=== PATIENT | female | born 1945 | race Caucasian/White ===

== ENCOUNTER 2022-09-16 11:27 | Emergency (ER) | payer OTHER ==
--- OUTSIDE RECORDS SUMMARY | 2022-09-16 11:35 | XMS REPORT | Continuity of Care Document ---
:1945 Author Organization [facility] t Address [address] [place] [place] [address] Support Name Relationship Address Phone Deni Galan Daughter [address] [place] [address] MARCELINA ROTHMAN Unavailable [address] [place] [address] JENNIFER ROBERTS, CODI [place] Emergency Provider [address] [facility] [id number] [place] [address] LIANET ROBERTS MD Primary Care Physician [address] [phone] [place] [address] CAMI ALLEN Child [address] [place] [address] DO Yuliana INIGUEZ Emergency Provider [address] [phone] [place] [address] DO DAYAMI GRIJALVA Emergency Provider [address] [email or web address] [address] MD JUVE REYES A Emergency Provider [facility] [place] [address] MD JESSICA HEARN Admitting Provider [address] [place] [address] MD JOSE MIGUEL MCCLOUD Emergency Provider Unavailable Unavailable MD HANNA Emergency Provider [address] [phone] [place] [address] MD BEL FLORES Admitting Provider [address] [place] [address] MD TABITHA SHAH JR Admitting Provider [address] [phone] [place] [address] MD LIAM CAMARENA Emergency Provider [address] [place] [address] MD MAURICIO MAK Emergency Provider [address] [place] [address] RANDALL MORAES MD Emergency Provider [address] [place] [address] [place] [address] UNK, UN UN . Unavailable DENI GALAN CR [address] [phone] [place] [address] Deni Galan Daughter Not Applicable Unavailable [place] [id number] RE Unavailable Unavailable Unavailable Care Team Providers Name Role Phone Pcp-None Primary Care Physician Unavailable Merly Vasquez Attending Clinician Unavailable Rajeev Khanna Attending Clinician Unavailable Austen Flowers Attending Clinician Unavailable Too Bell Attending Clinician Unavailable PRIMITIVO DUMAS Attending Clinician Unavailable Jono Hernandez Attending Clinician Unavailable Yojana Lowry MD Attending Clinician [phone] YOJANA LOWRY Attending Clinician Unavailable Bonifacio Garza Attending Clinician Unavailable AUSTEN FLOWERS Attending Clinician Unavailable Rajeev Khanna Admitting Clinician Unavailable AUSTEN FLOWERS Admitting Clinician Unavailable Payers Payer Name Policy Type Policy Number Effective Date Expiration Date S ource Problems Condition Condition Condition Status Onset Resolution Last Treating Co mments Source Name Details Category Date Date Treatment Clinician Date [id number] Enterovesi Problem Com [facility] zarina Spirit fistula [facility] [id number] Hyperurice Problem Com [facility] marvin [facility] [id number] Recurrent Problem Com [facility] UTI [facility] [id number] History of Problem Co mmon nephrolith [facility] Allergies, Adverse Reactions, Alerts Allergy Allergy Status Severity Reaction(s) Onset Inactive Treating Comm ents Source Name Type Date Date Clinician Penicill DA Active [place] HIVES [facility] ins 08-26 [place] [facility]: d [facility] Sulfa DA Active MO ITCHING [facility] (Sulfona 08-26 [place] mide 00:00: d Antibiot 00 [facility] Center ciproflo DA Active MO HIVES [facility] xacin 08-26 [place] 00:00: d [address] [facility] clarithr DA Active MO HIVES [facility] [place] Influenz DA Active SV BP ISSUES/HR HC A a Virus ISSUES 08-26 [place] Vaccines 00:00: d [address] [facility] Penicill DA Active U Hives [facility] ins 11-11 00:00: 00 Sulfa DA Active U Vomiting [facility] (Sulfona 11-11 mide 00:00: Antibiot 00 ics) ciproflo DA Active U Hives [facility] xacin 11-11 00:00: 00 clarithr DA Active U Hives [facility] omycin 11-11 00:00: 00 flu Allergy Active U Difficulty [facility] Breathing 11-11 00:00: 00 NO KNOWN Allergy Active [facility] penicill penicill Active Unknown Commo n in V in V [facility] Sulfona Sulfona Active Unknown Commo n mide mide Spirit (substan (substan - [facility] ce) ce) [facility] 9041 Drug Active Unknown Common allergy [facility] Haemophi Haemophi Active Unknown Commo n alireza alireza [facility] ae type ae type b b [facility] clarithr clarithr Active Unknown Commo n omycin omycin [facility] Social History Social Habit Start Date Stop Date Quantity Comments Source History of Tobacco [facility] Use [facility] Sex Assigned At [birth year] [facility] 00:00:00 00:00:[address] [facility] Medications Ordered Filled Start Stop Current Ordering Indication Dosage Frequency Signature Comments Components Source Medication Medication Date Date Medication? Clinician (SIG) Name Name Nitrofurant Nitrofurant 2021-08- No 1{capsu QD Nitrofuran oin Monohyd oin Monohyd 011-24 le_with toin Macro 100 Macro 100 00:00: 00:00 _food} Monohyd MG MG 00 :00 Macro 100 MG Nitrofurant Nitrofurant 2021-08- No 1{capsu QD Nitrofuran oin Monohyd oin Monohyd 0-26 11- le_with toin Macro 100 Macro 100 00:00: 00:00 _food} Monohyd MG MG 00 :00 Macro 100 MG Nitrofurant Nitrofurant 2021-08- No 1{capsu QD Nitrofuran oin Monohyd oin Monohyd 0-11-24 le_with toin Macro 100 Macro 100 00:00: 00:00 _food} Monohyd MG MG 00 :00 Macro 100 MG Nitrofurant Nitrofurant 2021- No QD Nitrofuran oin Monohyd oin Monohyd 02-18 toin Macro 100 Macro 100 00:00: 00:00 Monohyd MG MG 00 :00 Macro 100 MG Nitrofurant Nitrofurant 2021- No QD Nitrofuran oin Monohyd oin Monohyd 02-18 toin Macro 100 Macro 100 00:00: 00:00 Monohyd MG MG 00 :00 Macro 100 MG levoFLOXaci levoFLOXaci 2021- No 1{table QD levoFLOXac n 500 MG n 500 MG 02-18 t} in 500 MG 00:00: 00:00 00 :00 Allopurinol Allopurinol No 1{table QD Allopurino 100 MG 100 MG t} l 100 MG Meclizine Meclizine No 1{table QD Meclizine HCl 25 MG HCl 25 MG t_as_ne HCl 25 MG eded} Lipitor 10 Lipitor 10 No 1{table QD Lipitor 10 MG MG t} MG Furosemide Furosemide No 1{table QD Furosemide 20 MG 20 MG t} 20 MG Gabapentin Gabapentin No 1{capsu QD Gabapentin 300 MG 300 MG le} 300 MG amLODIPine amLODIPine No 1{table QD amLODIPine Besylate 10 Besylate 10 t} Besylate MG MG 10 MG Meclizine Meclizine No 1{table QD Meclizine HCl 25 MG HCl 25 MG t_as_ne HCl 25 MG eded} Isosorbide Isosorbide No 1{table BID Isosorbide Mononitrate Mononitrate t} Mononitrat 10 MG 10 MG e 10 MG Advair Advair No 1{puff} BID Advair Diskus Diskus Diskus 100-50 100-50 100-50 MCG/ACT MCG/ACT MCG/ACT Ozempic Ozempic No Ozempic (0.25 or (0.25 or (0.25 or 0.5 0.5 0.5 MG/DOSE) 2 MG/DOSE) 2 MG/DOSE) 2 MG/1.5ML MG/1.5ML MG/1.5ML Vitamin E Vitamin E No 1{capsu QD Vitamin E 200 UNIT 200 UNIT le} 200 UNIT Albuterol Albuterol No 1{puff_ 6xD Albuterol Sulfate HFA Sulfate HFA as_need Sulfate 108 (90 108 (90 ed} HFA 108 Base) Base) (90 Base) MCG/ACT MCG/ACT MCG/ACT Lipitor 10 Lipitor 10 No 1{table QD Lipitor 10 MG MG t} MG Potassium Potassium No 1{table QD Potassium 99 MG 99 MG t} 99 MG Magnesium Magnesium No Magnesium 400 MG 400 MG 400 MG Mongo 3 Mongo 3 No 1{capsu QD Mongo 3 1000 MG 1000 MG le} 1000 MG Famotidine Famotidine No 1{table QD Famotidine 20 MG 20 MG t_at_be 20 MG dtime_a s_neede d} aspirin aspirin No aspirin Januvia 25 Januvia 25 No Januvia 25 MG MG MG Allopurinol Allopurinol No 1{table QD Allopurino 100 MG 100 MG t} l 100 MG hydrALAZINE hydrALAZINE No 1{table TID hydrALAZIN HCl 25 MG HCl 25 MG t_with_ E HCl 25 food} MG Vitamin D Vitamin D No 1{table QD Vitamin D 50 MCG 50 MCG t} 50 MCG (1999 UT) (1999 UT) (1999 UT) amLODIPine amLODIPine No 1{table QD amLODIPine Besylate 10 Besylate 10 t} Besylate MG MG 10 MG Albuterol Albuterol No 1{puff_ 6xD Albuterol Sulfate HFA Sulfate HFA as_need Sulfate 108 (90 108 (90 ed} HFA 108 Base) Base) (90 Base) MCG/ACT MCG/ACT MCG/ACT Furosemide Furosemide No 1{table QD Furosemide 20 MG 20 MG t} 20 MG Meclizine Meclizine No 1{table QD Meclizine HCl 25 MG HCl 25 MG t_as_ne HCl 25 MG eded} Famotidine Famotidine No 1{table QD Famotidine 20 MG 20 MG t_at_be 20 MG dtime_a s_neede d} Vitamin D Vitamin D No 1{table QD Vitamin D 50 MCG 50 MCG t} 50 MCG (1999) (1999 UT) (1999) Januvia 25 Januvia 25 No Januvia 25 MG MG MG Vitamin E Vitamin E No 1{capsu QD Vitamin E 200 UNIT 200 UNIT le} 200 UNIT Magnesium Magnesium No Magnesium 400 MG 400 MG 400 MG Ozempic Ozempic No Ozempic (0.25 or (0.25 or (0.25 or 0.5 0.5 0.5 MG/DOSE) 2 MG/DOSE) 2 MG/DOSE) 2 MG/1.5ML MG/1.5ML MG/1.5ML aspirin aspirin No aspirin hydrALAZINE hydrALAZINE No 1{table TID hydrALAZIN HCl 25 MG HCl 25 MG t_with_ E HCl 25 food} MG Advair Advair No 1{puff} BID Advair Diskus Diskus Diskus 100-50 100-50 100-50 MCG/ACT MCG/ACT MCG/ACT Potassium Potassium No 1{table QD Potassium 99 MG 99 MG t} 99 MG Gabapentin Gabapentin No 1{capsu QD Gabapentin 300 MG 300 MG le} 300 MG Lipitor 10 Lipitor 10 No 1{table QD Lipitor 10 MG MG t} MG Isosorbide Isosorbide No 1{table BID Isosorbide Mononitrate Mononitrate t} Mononitrat 10 MG 10 MG e 10 MG Mongo 3 Mongo 3 No 1{capsu QD Mongo 3 1000 MG 1000 MG le} 1000 MG Allopurinol Allopurinol No 1{table QD Allopurino 100 MG 100 MG t} l 100 MG amLODIPine amLODIPine No 1{table QD amLODIPine Besylate 10 Besylate 10 t} Besylate MG MG 10 MG Albuterol Albuterol No 1{puff_ 6xD Albuterol Sulfate HFA Sulfate HFA as_need Sulfate 108 (90 108 (90 ed} HFA 108 Base) Base) (90 Base) MCG/ACT MCG/ACT MCG/ACT Furosemide Furosemide No 1{table QD Furosemide 20 MG 20 MG t} 20 MG Meclizine Meclizine No 1{table QD Meclizine HCl 25 MG HCl 25 MG t_as_ne HCl 25 MG eded} Famotidine Famotidine No 1{table QD Famotidine 20 MG 20 MG t_at_be 20 MG dtime_a s_neede d} Vitamin D Vitamin D No 1{table QD Vitamin D 50 MCG 50 MCG t} 50 MCG (1999 UT) (1999 UT) (1999 UT) Januvia 25 Januvia 25 No Januvia 25 MG MG MG Vitamin E Vitamin E No 1{capsu QD Vitamin E 200 UNIT 200 UNIT le} 200 UNIT Magnesium Magnesium No Magnesium 400 MG 400 MG 400 MG Ozempic Ozempic No Ozempic (0.25 or (0.25 or (0.25 or 0.5 0.5 0.5 MG/DOSE) 2 MG/DOSE) 2 MG/DOSE) 2 MG/1.5ML MG/1.5ML MG/1.5ML aspirin aspirin No aspirin hydrALAZINE hydrALAZINE No 1{table TID hydrALAZIN HCl 25 MG HCl 25 MG t_with_ E HCl 25 food} MG Advair Advair No 1{puff} BID Advair Diskus Diskus Diskus 100-50 100-50 100-50 MCG/ACT MCG/ACT MCG/ACT Potassium Potassium No 1{table QD Potassium 99 MG 99 MG t} 99 MG Gabapentin Gabapentin No 1{capsu QD Gabapentin 300 MG 300 MG le} 300 MG Lipitor 10 Lipitor 10 No 1{table QD Lipitor 10 MG MG t} MG Isosorbide Isosorbide No 1{table BID Isosorbide Mononitrate Mononitrate t} Mononitrat 10 MG 10 MG e 10 MG Mongo 3 Mongo 3 No 1{capsu QD Mongo 3 1000 MG 1000 MG le} 1000 MG Allopurinol Allopurinol No 1{table QD Allopurino 100 MG 100 MG t} l 100 MG amLODIPine amLODIPine No 1{table QD amLODIPine Besylate 10 Besylate 10 t} Besylate MG MG 10 MG Albuterol Albuterol No 1{puff_ 6xD Albuterol Sulfate HFA Sulfate HFA as_need Sulfate 108 (90 108 (90 ed} HFA 108 Base) Base) (90 Base) MCG/ACT MCG/ACT MCG/ACT Furosemide Furosemide No 1{table QD Furosemide 20 MG 20 MG t} 20 MG Meclizine Meclizine No 1{table QD Meclizine HCl 25 MG HCl 25 MG t_as_ne HCl 25 MG eded} Famotidine Famotidine No 1{table QD Famotidine 20 MG 20 MG t_at_be 20 MG dtime_a s_neede d} Vitamin D Vitamin D No 1{table QD Vitamin D 50 MCG 50 MCG t} 50 MCG (1999 UT) (1999 UT) (1999) Januvia 25 Januvia 25 No Januvia 25 MG MG MG Vitamin E Vitamin E No 1{capsu QD Vitamin E 200 UNIT 200 UNIT le} 200 UNIT Magnesium Magnesium No Magnesium 400 MG 400 MG 400 MG Ozempic Ozempic No Ozempic (0.25 or (0.25 or (0.25 or 0.5 0.5 0.5 MG/DOSE) 2 MG/DOSE) 2 MG/DOSE) 2 MG/1.5ML MG/1.5ML MG/1.5ML aspirin aspirin No aspirin hydrALAZINE hydrALAZINE No 1{table TID hydrALAZIN HCl 25 MG HCl 25 MG t_with_ E HCl 25 food} MG Advair Advair No 1{puff} BID Advair Diskus Diskus Diskus 100-50 100-50 100-50 MCG/ACT MCG/ACT MCG/ACT Potassium Potassium No 1{table QD Potassium 99 MG 99 MG t} 99 MG Gabapentin Gabapentin No 1{capsu QD Gabapentin 300 MG 300 MG le} 300 MG Lipitor 10 Lipitor 10 No 1{table QD Lipitor 10 MG MG t} MG Isosorbide Isosorbide No 1{table BID Isosorbide Mononitrate Mononitrate t} Mononitrat 10 MG 10 MG e 10 MG Mongo 3 Mongo 3 No 1{capsu QD Mongo 3 1000 MG 1000 MG le} 1000 MG Allopurinol Allopurinol No 1{table QD Allopurino 100 MG 100 MG t} l 100 MG Vitamin E Vitamin E No 1{capsu QD Vitamin E 200 UNIT 200 UNIT le} 200 UNIT hydrALAZINE hydrALAZINE No 1{table TID hydrALAZIN HCl 25 MG HCl 25 MG t_with_ E HCl 25 food} MG amLODIPine amLODIPine No 1{table QD amLODIPine Besylate 10 Besylate 10 t} Besylate MG MG 10 MG Advair Advair No 1{puff} BID Advair Diskus Diskus Diskus 100-50 100-50 100-50 MCG/ACT MCG/ACT MCG/ACT Meclizine Meclizine No 1{table QD Meclizine HCl 25 MG HCl 25 MG t_as_ne HCl 25 MG eded} Furosemide Furosemide No 1{table QD Furosemide 20 MG 20 MG t} 20 MG Albuterol Albuterol No 1{puff_ 6xD Albuterol Sulfate HFA Sulfate HFA as_need Sulfate 108 (90 108 (90 ed} HFA 108 Base) Base) (90 Base) MCG/ACT MCG/ACT MCG/ACT Isosorbide Isosorbide No 1{table BID Isosorbide Mononitrate Mononitrate t} Mononitrat 10 MG 10 MG e 10 MG Vitamin D Vitamin D No 1{table QD Vitamin D 50 MCG 50 MCG t} 50 MCG (1999 UT) (1999 UT) (1999 UT) Lipitor 10 Lipitor 10 No 1{table QD Lipitor 10 MG MG t} MG Ozempic Ozempic No Ozempic (0.25 or (0.25 or (0.25 or 0.5 0.5 0.5 MG/DOSE) 2 MG/DOSE) 2 MG/DOSE) 2 MG/1.5ML MG/1.5ML MG/1.5ML Gabapentin Gabapentin No 1{capsu QD Gabapentin 300 MG 300 MG le} 300 MG Potassium Potassium No 1{table QD Potassium 99 MG 99 MG t} 99 MG Januvia 25 Januvia 25 No Januvia 25 MG MG MG Allopurinol Allopurinol No 1{table QD Allopurino 100 MG 100 MG t} l 100 MG aspirin aspirin No aspirin Famotidine Famotidine No 1{table QD Famotidine 20 MG 20 MG t_at_be 20 MG dtime_a s_neede d} Mongo 3 Mongo 3 No 1{capsu QD Mongo 3 1000 MG 1000 MG le} 1000 MG Magnesium Magnesium No Magnesium 400 MG 400 MG 400 MG Gabapentin Gabapentin No 1{capsu QD Gabapentin 300 MG 300 MG le} 300 MG Ozempic Ozempic No Ozempic (0.25 or (0.25 or (0.25 or 0.5 0.5 0.5 MG/DOSE) 2 MG/DOSE) 2 MG/DOSE) 2 MG/1.5ML MG/1.5ML MG/1.5ML Potassium Potassium No 1{table QD Potassium 99 MG 99 MG t} 99 MG Famotidine Famotidine No 1{table QD Famotidine 20 MG 20 MG t_at_be 20 MG dtime_a s_neede d} aspirin aspirin No aspirin Isosorbide Isosorbide No 1{table BID Isosorbide Mononitrate Mononitrate t} Mononitrat 10 MG 10 MG e 10 MG Advair Advair No 1{puff} BID Advair Diskus Diskus Diskus 100-50 100-50 100-50 MCG/ACT MCG/ACT MCG/ACT Albuterol Albuterol No 1{puff_ 6xD Albuterol Sulfate HFA Sulfate HFA as_need Sulfate 108 (90 108 (90 ed} HFA 108 Base) Base) (90 Base) MCG/ACT MCG/ACT MCG/ACT amLODIPine amLODIPine No 1{table QD amLODIPine Besylate 10 Besylate 10 t} Besylate MG MG 10 MG Furosemide Furosemide No 1{table QD Furosemide 20 MG 20 MG t} 20 MG Januvia 25 Januvia 25 No Januvia 25 MG MG MG Mongo 3 Mongo 3 No 1{capsu QD Mongo 3 1000 MG 1000 MG le} 1000 MG Vitamin D Vitamin D No 1{table QD Vitamin D 50 MCG 50 MCG t} 50 MCG (1999 UT) (1999 UT) (1999) Lipitor 10 Lipitor 10 No 1{table QD Lipitor 10 MG MG t} MG Vitamin E Vitamin E No 1{capsu QD Vitamin E 200 UNIT 200 UNIT le} 200 UNIT Magnesium Magnesium No Magnesium 400 MG 400 MG 400 MG Allopurinol Allopurinol No 1{table QD Allopurino 100 MG 100 MG t} l 100 MG Meclizine Meclizine No 1{table QD Meclizine HCl 25 MG HCl 25 MG t_as_ne HCl 25 MG eded} hydrALAZINE hydrALAZINE No 1{table TID hydrALAZIN HCl 25 MG HCl 25 MG t_with_ E HCl 25 food} MG Ozempic Ozempic No Ozempic (0.25 or (0.25 or (0.25 or 0.5 0.5 0.5 MG/DOSE) 2 MG/DOSE) 2 MG/DOSE) 2 MG/1.5ML MG/1.5ML MG/1.5ML hydrALAZINE hydrALAZINE No 1{table TID hydrALAZIN HCl 25 MG HCl 25 MG t_with_ E HCl 25 food} MG aspirin aspirin No aspirin Gabapentin Gabapentin No 1{capsu QD Gabapentin 300 MG 300 MG le} 300 MG Isosorbide Isosorbide No 1{table BID Isosorbide Mononitrate Mononitrate t} Mononitrat 10 MG 10 MG e 10 MG Potassium Potassium No 1{table QD Potassium 99 MG 99 MG t} 99 MG Albuterol Albuterol No 1{puff_ 6xD Albuterol Sulfate HFA Sulfate HFA as_need Sulfate 108 (90 108 (90 ed} HFA 108 Base) Base) (90 Base) MCG/ACT MCG/ACT MCG/ACT amLODIPine amLODIPine No 1{table QD amLODIPine Besylate 10 Besylate 10 t} Besylate MG MG 10 MG Furosemide Furosemide No 1{table QD Furosemide 20 MG 20 MG t} 20 MG Mongo 3 Mongo 3 No 1{capsu QD Mongo 3 1000 MG 1000 MG le} 1000 MG Famotidine Famotidine No 1{table QD Famotidine 20 MG 20 MG t_at_be 20 MG dtime_a s_neede d} Vitamin D Vitamin D No 1{table QD Vitamin D 50 MCG 50 MCG t} 50 MCG (1999) (1999) (1999) Magnesium Magnesium No Magnesium 400 MG 400 MG 400 MG Vitamin E Vitamin E No 1{capsu QD Vitamin E 200 UNIT 200 UNIT le} 200 UNIT Januvia 25 Januvia 25 No Januvia 25 MG MG MG Advair Advair No 1{puff} BID Advair Diskus Diskus Diskus 100-50 100-50 100-50 MCG/ACT MCG/ACT MCG/ACT Vital Signs Vital Name Observation Time Observation Value Comments Source height 2022-05-28 17:45:00 68 [in_i] [facility] weight 2022-05-28 17:45:00 201 [lb_av] [facility] temperature 2022-05-28 17:45:00 98.2 [degF] [facility] bmi 2022-05-28 17:45:00 30.56 kg/m2 [facility] oximetry 2022-05-28 17:45:00 97 % Common S pirit [facility] respiratory rate 2022-05-28 17:45:00 16 /min Comm on [facility] blood pressure 2022-05-28 17:45:00 157 mm[Hg] Common [facility] - systolic [facility] blood pressure 2022-05-28 17:45:00 72 mm[Hg] Common [facility] - diastolic [facility] height 2022-03-12 13:30:00 68 [in_i] Common [facility] weight 2022-03-12 13:30:00 200.2 [lb_av] [facility] temperature 2022-03-12 13:30:00 98.5 [degF] Common [facility] bmi 2022-03-12 13:30:00 30.44 kg/m2 [facility] S [facility] oximetry 2022-03-12 13:30:00 97 % Common S [facility] respiratory rate 2022-03-12 13:30:00 16 /min Comm on [facility] blood pressure 2022-03-12 13:30:00 148 mm[Hg] Common [facility] - systolic [facility] blood pressure 2022-03-12 13:30:00 72 mm[Hg] Common [facility] - diastolic [facility] height 2022-02-12 10:15:00 68 [in_i] Common S pirit [facility] weight 2022-02-12 10:15:00 202 [lb_av[facility] temperature 2022-02-12 10:15:00 97.3 [degF] [facility] bmi 2022-02-12 10:15:00 30.71 kg/m2 [facility] oximetry 2022-02-12 10:15:00 98 % Common S [facility] respiratory rate 2022-02-12 10:15:00 16 /min Comm on [facility] blood pressure 2022-02-12 10:15:00 133 mm[Hg] Common [facility] - systolic [facility] blood pressure 2022-02-12 10:15:00 68 mm[Hg] Common [facility] - diastolic [facility] height 2022-01-29 10:30:00 68 [in_i] [facility] weight 2022-01-29 10:30:00 208.6 [lb_av] [facility] temperature 2022-01-29 10:30:00 98.5 [degF] [facility] bmi 2022-01-29 10:30:00 31.71 kg/m2 [facility] oximetry 2022-01-29 10:30:00 96 % [facility] respiratory rate 2022-01-29 10:30:00 16 /min Comm on [facility] blood pressure 2022-01-29 10:30:00 139 mm[Hg] Common [facility] - systolic [facility] blood pressure 2022-01-29 10:30:00 63 mm[Hg] Common [facility] - diastolic [facility] HEIGHT 2021-11-11 17:13:00 175.3 cm WEIGHT 2021-11-11 17:13:00 97.07 kg HEIGHT 2021-11-11 17:13:00 175.3 cm WEIGHT 2021-11-11 17:13:00 97.07 kg HEIGHT 2021-11-11 17:13:00 175.3 cm WEIGHT 2021-11-11 17:13:00 97.07 kg Systolic blood 2021-11-11 21:23:00 121 mm[Hg] [facility] Diastolic blood 2021-11-11 21:23:00 74 mm[Hg] [facility] Heart rate 2021-11-11 21:23:00 89 /min [facility] Body temperature 2021-11-11 21:23:00 36.67 Leticia [facility] Respiratory rate 2021-11-11 21:23:00 20 /min [facility] Oxygen saturation in 2021-11-11 20:00:00 96 /min [facility] Arterial blood by Medical Ce nter Pulse oximetry Body height 2021-11-11 17:13:00 175.3 cm [facility] Body weight 2021-11-11 17:13:00 97.07 kg [facility] BMI 2021-11-11 17:13:00 31.60 kg/m2 [facility] Procedures Procedure Date / Time Performing Clinician Source Performed [id number] 2022-09-02 00:00:00 [facility] [id number] 2022-09-02 00:00:00 [facility] [id number] 2022-09-02 00:00:00 [facility] [id number] 2022-09-02 00:00:00 [facility] [id number] 2022-09-02 00:00:00 [facility] [id number] 2022-09-02 00:00:00 [facility] [id number] 2022-09-02 00:00:00 [facility] URINE CULTURE 2021-11-11 20:17:00 [facility] URINALYSIS W/ REFLEX 2021-11-11 20:17:00 [facility] URINE CULTURE [facility] CBC W/PLT COUNT & AUTO 2021-11-11 19:56:00 Yojana Lowry [facility] DIFFERENTIAL [facility] COMPREHENSIVE METABOLIC 2021-11-11 19:56:00 Yojana Lowry [facility] PANEL [facility] LIPASE 2021-11-11 19:56:00 Yojana Lowry [facility] MAGNESIUM 2021-11-11 19:56:00 Yojana Lowry [facility] HIGH SENSITIVITY TROPONIN 2021-11-11 19:56:00 Yojana Lowry I [facility] I [facility] CBC W/PLT COUNT & AUTO 2021-11-11 19:56:00 Yojana Lowry [facility] S [facility] XR CHEST 2 VIEWS 2021-11-11 17:57:00 Jud Lowryita [facility] ECG 12-LEAD 2021-11-11 17:47:17 Unknown, Hl7 Doctor [facility] ECG 12-LEAD 2021-11-11 17:47:17 [facility] 2021-11-11 17:47:17 Unknown, Hl7 [facility] EKG-SCANNED 2021-11-11 00:00:00 Provider, Obinna [facility] Merissa es Scanning [facility] Plan of Care Planned Activity Planned Date Details Comments Source Future Scheduled 2022-08-[address] [facility] Test 00:00:00 (12+) [code = [facility] DEPRESSION SCREENING (12+)] Future Scheduled 2022-08-03 FALLS RISK SCREENING [facility] Test 00:00:00 [code = FALLS RISK Medical C enter SCREENING] Future Scheduled 2022-08-[address] [facility] Test 00:00:00 (12+) [code = [facility] DEPRESSION SCREENING (12+)] Future Scheduled 2022-08-03 FALLS RISK SCREENING [facility] Test 00:00:00 [code = FALLS RISK Medical C enter SCREENING] Future Scheduled 2022-04-03 INFLUENZA VACCINE (#1) [facility] 00:00:00 [code = INFLUENZA Medical Ce nter VACCINE (#1)] Future Scheduled 2022-04-03 INFLUENZA VACCINE (#1) [facility] 00:00:00 [code = INFLUENZA Medical Ce nter VACCINE (#1)] Future Scheduled 2009 PNEUMOCOCCAL 65+ YRS [facility] Test 00:00:00 (1 - PCV) [code = Medical Ce nter PNEUMOCOCCAL 65+ YRS (1 - PCV)] Future Scheduled 2009 PNEUMOCOCCAL 65+ YRS [facility] Test 00:00:00 (1 - PCV) [code = Medical Ce nter PNEUMOCOCCAL 65+ YRS (1 - PCV)] Future Scheduled 2004-08-[address] [facility] 00:00:00 WELLNESS (YEAR 2 or Medical Center FIRST YEAR if no IPPE) [code = MEDICARE ANNUAL WELLNESS (YEAR 2 or FIRST YEAR if no IPPE)] Future Scheduled 2004-08-[address] [facility] 00:00:00 WELLNESS (YEAR 2 or Medical Center FIRST YEAR if no IPPE) [code = MEDICARE ANNUAL WELLNESS (YEAR 2 or FIRST YEAR if no IPPE)] Future Scheduled 1994 SHINGLES VACCINES ([address] [facility] 00:00:00 of 2) [code = SHINGLES [facility] Center VACCINES (1 of 2)] Future Scheduled 1994 SHINGLES VACCINES ([address] [facility] 00:00:00 of 2) [code = SHINGLES [facility] VACCINES (1 of 2)] Future Scheduled 1963-10-10 DTAP/TDAP/TD VACCINES [facility] Test 00:00:00 (1 - Tdap) [code = Medical C enter DTAP/TDAP/TD VACCINES (1 - Tdap)] Future Scheduled 1963-10-10 DTAP/TDAP/TD [facility]ACCINES [facility] Test 00:00:00 (1 - Tdap) [code = Medical C enter DTAP/TDAP/TD VACCINES (1 - Tdap)] Future Scheduled 1962 HEPATITIS C [facility]CRE[facility] Test 00:00:00 [code = HEPATITIS C [facility] SCREENING] Future Scheduled 1962 [facility]PATITIS C [facility] Test 00:00:00 [code = HEPATITIS C Medical Center SCREENING] Future Scheduled [address] [facility] Test 00:00:00 Counseling and Medical Cente r Screening (12+) [code = Tobacco Cessation Counseling and Screening (12+)] Future Scheduled [address] [facility] Test 00:00:00 Counseling and Medical Cente r Screening (12+) [code = Tobacco Cessation Counseling and Screening (12+)] Future Scheduled 1945-04-11 COVID-19 VACCINE (#1) [facility] Test 00:00:00 [code = COVID-[address] VACCINE (#1)] Future Scheduled 1945-04-11 COVID-19 VACCINE (#1) [facility] Test 00:00:00 [code = COVID-[address] VACCINE (#1)] Future Scheduled 1945 DXA SCAN [code = DXA [facility] Test 00:00:00 SCAN] Medical Center Future Scheduled 1944 DXA SCAN [code = DXA [facility] Test 00:00:00 SCAN] Medical Center Encounters Start End Encounter Admission Attending Care Care Encounter Source Date/Time Date/Time Type Type Clinicians Facility Department ID 2022-02-12 Outpatient Neret, STLMLC STLMLC [id number] Common 09:49:02 Merly [id number] [facility] 2022-01-30 Outpatient Neret, STLMLC STLMLC [id number] Common 14:36:04 Merly [id number] [facility] 2022-01-29 Outpatient STLMLC STLMLC [id number] Common 10:07:02 [facility] 2021-11-11 Inpatient [facility] [id number] [facility] 12:52:00 63 2021-11-11 Inpatient [facility] [id number] [facility] 12:52:00 63 2022-09-02 2022-09-05 Inpatient BONNIE Khanna [facility] [id number] [facility] 09:22:00 14:41:00 Rajeev 28 [facility] 2022-08-20 2022-08-20 Outpatient BONNIE Kristie [facility] [id number] [place] 13:06:00 13:06:00 Austen -[id number] [facility] 2022-08-19 2022-08-19 Outpatient BONNIE Arabella [facility] [id number] [place] 13:30:00 13:30:00 Too -[id number] [facility] 2022-08-13 2022-08-13 Outpatient BONNIE ALESIA [facility] D00 [id number] [place] 14:08:00 14:08:00 , PRIMITIVO -[id number] [facility] 2022-07-31 2022-07-31 Outpatient BONNIE ALESIA [facility] D00 [id number] [place] 14:29:00 14:29:00 , PRIMITIVO -[id number] [facility] 2022-06-20 2022-06-20 Outpatient BONNIE FLOWERS [facility] [id number] [place] 09:11:00 09:11:00 AUSTEN -[id number] [facility] 2022-06-17 2022-06-17 Outpatient BONNIE Hernandez [facility] [id number] [place] 13:50:00 13:50:00 Jono [id number] [facility] 2022-06-02 2022-06-02 (TEL) STLMLC STLMLC [id number] Co mmon 00:00:00 00:00:00 [facility] 2022-05-28 2022-05-28 OFFICE STLMLC STLMLC [id number] Co mmon 00:00:00 00:00:00 VISIT [facility] ESTAB PT - CHI LEVEL 4 [facility] 2022-05-28 2022-05-28 (TEL) STLMLC STLMLC [id number] Co mmon 00:00:00 00:00:00 [facility] 2022-05-08 2022-05-08 Outpatient BONNIE Hernandez [facility] [id number] [place] 15:16:00 15:16:00 Jono [id number] [facility] 2022-03-12 2022-03-12 OFFICE STLMLC STLMLC [id number] Co mmon 00:00:00 00:00:00 VISIT [facility] ESTAB PT - [facility]I LEVEL 4 [facility] 2022-02-17 2022-02-17 (TEL) STLMLC STLMLC [id number] Co mmon 00:00:00 00:00:00 [facility] 2022-02-12 2022-02-12 OFFICE STLMLC STLMLC [id number] Co mmon 00:00:00 00:00:00 VISIT [facility] ESTAB PT - CHI LEVEL 2 [facility] 2022-01-29 2022-01-29 OFFICE STLMLC STLMLC [id number] Co mmon 00:00:00 00:00:00 VISIT [facility] it PT LEVEL 2 - [facility] 2021-11-11 2021-11-11 Outpatient [facility] [id number] [facility] 00:00:00 23:59:00 Leonidas 2021-11-11 2021-11-11 Emergency ER Essence, [facility] [id number] 17:14:00 21:25:00 [facility] 2021-11-11 2021-11-11 Emergency Essence, [facility] [id number] 17:14:00 21:25:00 [facility] 2021-11-11 2021-11-11 Emergency ER ESSENCE, [facility] Emergency [id number] SLE 17:14:00 21:25:00 [place] 2021-11-11 2021-11-11 Orders [facility] [id number] 00:00:00 00:00:00 Only [facility] 2021-11-11 2021-11-11 Orders [facility] [id number] 00:00:00 00:00:00 [facility] Results Test Description Test Time Test Comments Results Result Comments Source GLUBED 2022-09-05 12:23:00 Test Item Value Reference Range Interpretation Comme nts GLUBED (test code = GLUBED) 113 MG/DL 74-106 H BASIC METABOLIC [id number] 08:17:00 Test Item Value Reference Range Interpretation Comments SODIUM (test code = 136 mmol/L 137-145 L NA) POTASSIUM (test 3.9 mmol/L 3.4-5.0 N code = K) CHLORIDE (test code 107 mmol/L 98-107 N = CL) CARBON DIOXIDE 25 mmol/L 22-30 N (test code = CO2) ANION GAP (test 8 code = GAP) GLUCOSE (test code 110 mg/dL 74-106 H = GLU) BLOOD UREA NITROGEN 35 mg/dL 7-17 H (test code = BUN) GLOMERULAR 24 mL/min The Glomerular FILTRATION RATE Filtration R ate is a (test code = GFR) calculated parameterbased on serum Creatinin e, patient age and sex. GFR valuesless than 60 mL/min/1.73 squ are meters are doris cative ofChronic Kidne y Disease. Values less than 15 mL/min/1.73squa re meters indicate Kidney failure. The calculation for GFR is based on the CK D-EPI (2020) calculat ion. This formulais race indifferent and is the recommended for tiki for GFRby the [facility] on for Adults.The GFR will not calculate i f the sex is unknown or if thepatient's ag e is <18 years. CREATININE (test 2.1 mg/dL 0.5-1.0 H code = CREAT) CALCIUM (test code 8.5 mg/dL 8.4-10.2 N = CA) INDEX HEMOLYSIS < 15 Index/DL 0-100 N (test code = HEMINDEX) [id number] 08:17:00 Test Item Value Reference Range Interpretation Comments PHOSPHOROUS (test code = PHOS) 2.9 mg/dL 2.5-4.5 N [id number] 08:17:00 Test Item Value Reference Range Interpretation Comments MAGNESIUM (test code = MAG) 1.8 mg/dL 1.6-2.3 N CBC W/AUTO [id number] 07:32:00 Test Item Value Reference Range Interpretation Comments WHITE BLOOD CELL (test code = 6.6 x10 3/uL 5.0-12.0 N WBC) RED BLOOD CELL (test code = 3.06 x10 6/uL 4.20-5.40 L RBC) HEMOGLOBIN (test code = HGB) 8.9 g/dL 12.0-16.0 L HEMATOCRIT (test code = HCT) 28.2 % 36.0-46.0 L MEAN CELL VOLUME (test code = 92 fL 81-99 N MCV) MEAN CELL HGB (test code = MCH) 29.1 pg 27-31 N MEAN CELL HGB CONCENTRATION 31.6 g/dL 33-37 L (test code = MCHC) RED CELL DISTRIBUTION WIDTH 14.4 % 11.5-15.5 N (test code = RDW) PLATELET COUNT (test code = 183 x10 3/uL 130-400 N PLT) MEAN PLATELET VOLUME (test code 9.6 fL 9.4-16.4 N = MPV) NEUTROPHIL % (test code = NT%) 59.4 % 43-65 N IMMATURE GRANULOCYTE % (test 0.2 % 0.0-2.0 N code = IG%) LYMPHOCYTE % (test code = LY%) 25.0 % 20.5-45.5 N MONOCYTE % (test code = MO%) 8.5 % 5.5-11.7 N EOSINOPHIL % (test code = EO%) 6.1 % 0.9-2.9 H BASOPHIL % (test code = BA%) 0.8 % 0.2-1.0 N NUCLEATED RBC % (test code = 0.0 % 0-1.0 N NRBC%) NEUTROPHIL # (test code = NT#) 3.90 x10 3/uL 2.2-4.8 N IMMATURE GRANULOCYTE # (test 0.01 x10 3/uL 0-0.03 N code = IG#) LYMPHOCYTE # (test code = LY#) 1.64 x10 3/uL 1.3-2.9 N MONOCYTE # (test code = MO#) 0.56 x10 3/uL 0.3-0.8 N EOSINOPHIL # (test code = EO#) 0.40 x10 3/uL 0.0-0.2 H BASOPHIL # (test code = BA#) 0.05 x10 3/uL 0.0-0.1 N [id number] 05:22:00 Test Item Value Reference Range Interpretation Comments GLUBED (test code = GLUBED) 101 MG/DL 74-106 N [id number] 21:15:00 Test Item Value Reference Range Interpretation Comments GLUBED (test code = GLUBED) 132 MG/DL 74-106 H [id number] 17:15:00 Test Item Value Reference Range Interpretation Comments GLUBED (test code = GLUBED) 112 MG/DL 74-106 H [id number] 17:04:00 Test Item Value Reference Range Interpretation Comments SURGICAL (test code = SR) RUN DATE: 09/04/22 [employer] [facility] PAGE 1 RUN TIME: 1704 Specimen Inquiry RUN USER: INTERFACE PATIENT: MARCELINA ROTHMAN LOC: [place] U #: [id number] AGE/SX: 76/F ROOM: [place] [address] RE09/02/22REG DR: Rajeev Khanna DO : 43 BED: A DIS: STATUS: ADM IN TLOC: SPEC #: [id number] RECD: 09/03/22 STATUS: SOUSp REQ #: [id number] SADE: 09/02/[address] [facility] [address]: Rajeev Khanna DO ENTERED: 09/03/22 SP TYPE: SURGICAL OTHR DR: [place] MD Undefined ProviderORDERED: [id number], ANATOMIC SPEC HISTOLOGY: TISSUE ID BLK PCS MARKY LEV / PROCEDURE DISPOSITION ____ ___ ___ ___ ___ COLSR A 6 6 6 TISSUES: A. COLON SEGMENTAL RESECTION NOT TUMOR - RECTOSIGMOID FINAL DIAGNOSIS A. RECTOSIGMOID COLON, SEGMENTAL RESECTION: FIBROUS ADHESIONS FOCAL HEMORRHAGE COLON ANASTOMOSIS RINGS: UNREMARKABLE GROSS DESCRIPTION Received fresh, labeled with the patient's name, medical record number and "rectumand sigmoid" is a 23.0 cm in length x 5.0 cm in circumference segment of rectosigmoidcolon. The serosal surface is purple-fuller to sheehan-white, dusky, exhibits focal fibrousadhesions and attached pericolonic adipose tissue measuring 3.5 cm in maximum thickness.The specimen is opened to reveal pink-fuller focally dusky mucosa throughout. No discretemasses, fistulas or perforations are identified. Also received in the specimen containerare two pink-fuller dusky rings of intestinal tissue measuring 1.8 cm and 2.0 cm in diameter.Sectioning reveals no discrete masses. One of the rings is attached to a metallic trocar. Section code: A1, parallel resection margins; A2-A7, customer success representative colon with serosaladhesions; A8, one customer success representative section from each intestinal ring. MH/DB/jv Unless otherwise noted, the technical component is performed at [facility], [address], [place] [address]. The diagnosis is based uponmicroscopic examination. MICROSCOPIC DESCRIPTION Microscopic examination is performed on all specimens and the findings are incorporatedinto the final diagnosis. CONTINUED ON NEXT PAGE RUN DATE: 09/04/22 [facility] PAGE 2 RUN TIME: 1704 Specimen Inquiry RUN USER: INTERFACE SPEC #: [id number] PATIENT: MARCELINA ROTHMAN #[id number] (Continued) CLINICAL INFORMATION COLOVESICAL FISTULA Signed SIGNATURE ON FILE Karlene Tucker MD 09/04/22 1704 END OF REPORT [id number] 12:51:00 Test Item Value Reference Range Interpretation Comments GLUBED (test code = GLUBED) 123 MG/DL 74-106 H BASIC METABOLIC [id number] 06:05:00 Test Item Value Reference Range Interpretation Comments SODIUM (test code = 137 mmol/L 137-145 N NA) POTASSIUM (test 3.4 mmol/L 3.4-5.0 N code = K) CHLORIDE (test code 107 mmol/L 98-107 N = CL) CARBON DIOXIDE 26 mmol/L 22-30 N (test code = CO2) ANION GAP (test 7 code = GAP) GLUCOSE (test code 108 mg/dL 74-106 H = GLU) BLOOD UREA NITROGEN 41 mg/dL 7-17 H (test code = BUN) GLOMERULAR 21 mL/min The Glomerular FILTRATION RATE Filtration R ate is a (test code = GFR) calculated parameterbased on serum Creatinin e, patient age and sex. GFR valuesless than 60 mL/min/1.73 squ are meters are doris cative ofChronic Kidne y Disease. Values less than 15 mL/min/1.73squa re meters indicate Kidney failure. The calculation for GFR is based on the CK D-EPI (2020) calculat ion. This formulais race indifferent and is the recommended for tiki for GFRby the N [facility] on for Adults.The GFR will not calculate i f the sex is unknown or if thepatient's ag e is <18 years. CREATININE (test 2.3 mg/dL 0.5-1.0 H code = CREAT) CALCIUM (test code 8.6 mg/dL 8.4-10.2 N = CA) INDEX HEMOLYSIS < 15 Index/DL 0-100 N (test code = HEMINDEX) [id number] 06:05:00 Test Item Value Reference Range Interpretation Comments PHOSPHOROUS (test code = PHOS) 3.4 mg/dL 2.5-4.5 N [id number] 06:05:00 Test Item Value Reference Range Interpretation Comments MAGNESIUM (test code = MAG) 1.8 mg/dL 1.6-2.3 N CBC W/AUTO [id number] 05:37:00 Test Item Value Reference Range Interpretation Comments WHITE BLOOD CELL (test code = 7.8 x10 3/uL 5.0-12.0 N WBC) RED BLOOD CELL (test code = 2.99 x10 6/uL 4.20-5.40 L RBC) HEMOGLOBIN (test code = HGB) 8.6 g/dL 12.0-16.0 L HEMATOCRIT (test code = HCT) 27.0 % 36.0-46.0 L MEAN CELL VOLUME (test code = 90 fL 81-99 N MCV) MEAN CELL HGB (test code = MCH) 28.8 pg 27-31 N MEAN CELL HGB CONCENTRATION 31.9 g/dL 33-37 L (test code = MCHC) RED CELL DISTRIBUTION WIDTH 14.5 % 11.5-15.5 N (test code = RDW) PLATELET COUNT (test code = 175 x10 3/uL 130-400 N PLT) MEAN PLATELET VOLUME (test code 9.3 fL 9.4-16.4 L = MPV) NEUTROPHIL % (test code = NT%) 53.8 % 43-65 N IMMATURE GRANULOCYTE % (test 0.1 % 0.0-2.0 N code = IG%) LYMPHOCYTE % (test code = LY%) 34.1 % 20.5-45.5 N MONOCYTE % (test code = MO%) 10.1 % 5.5-11.7 N EOSINOPHIL % (test code = EO%) 1.3 % 0.9-2.9 N BASOPHIL % (test code = BA%) 0.6 % 0.2-1.0 N NUCLEATED RBC % (test code = 0.0 % 0-1.0 N NRBC%) NEUTROPHIL # (test code = NT#) 4.20 x10 3/uL 2.2-4.8 N IMMATURE GRANULOCYTE # (test 0.01 x10 3/uL 0-0.03 N code = IG#) LYMPHOCYTE # (test code = LY#) 2.66 x10 3/uL 1.3-2.9 N MONOCYTE # (test code = MO#) 0.79 x10 3/uL 0.3-0.8 N EOSINOPHIL # (test code = EO#) 0.10 x10 3/uL 0.0-0.2 N BASOPHIL # (test code = BA#) 0.05 x10 3/uL 0.0-0.1 N [id number] 05:29:00 Test Item Value Reference Range Interpretation Comments GLUBED (test code = GLUBED) 121 MG/DL 74-106 H [id number] 21:35:00 Test Item Value Reference Range Interpretation Comments GLUBED (test code = GLUBED) 124 MG/DL 74-106 H [id number] 19:27:00 Test Item Value Reference Range Interpretation Comments GLUBED (test code = GLUBED) 136 MG/DL 74-106 H [id number] 13:24:00 Test Item Value Reference Range Interpretation Comments GLUBED (test code = GLUBED) 139 MG/DL 74-106 H [id number] 06:44:00 Test Item Value Reference Range Interpretation Comments GLUBED (test code = GLUBED) 136 MG/DL 74-106 H BASIC METABOLIC [id number] 05:13:00 Test Item Value Reference Range Interpretation Comments SODIUM (test code = 138 mmol/L 137-145 N NA) POTASSIUM (test 4.0 mmol/L 3.4-5.0 N code = K) CHLORIDE (test code 107 mmol/L 98-107 N = CL) CARBON DIOXIDE 24 mmol/L 22-30 N (test code = CO2) ANION GAP (test 12 code = GAP) GLUCOSE (test code 129 mg/dL 74-106 H = GLU) BLOOD UREA NITROGEN 43 mg/dL 7-17 H (test code = BUN) GLOMERULAR 23 mL/min The Glomerular FILTRATION RATE Filtration R ate is a (test code = GFR) calculated parameterbased on serum Creatinin e, patient age and sex. GFR valuesless than 60 mL/min/1.73 squ are meters are doris cative ofChronic Kidne y Disease. Values less than 15 mL/min/1.73squa re meters indicate Kidney failure. The calculation for GFR is based on the CK D-EPI (2020) calculat ion. This formulais race indifferent and is the recommended for tiki for GFRby the [facility] on for Adults.The GFR will not calculate i f the sex is unknown or if thepatient's ag e is <18 years. CREATININE (test 2.2 mg/dL 0.5-1.0 H code = CREAT) CALCIUM (test code 9.2 mg/dL 8.4-10.2 N = CA) INDEX HEMOLYSIS < 15 Index/DL 0-100 N (test code = HEMINDEX) [id number] 05:13:00 Test Item Value Reference Range Interpretation Comments PHOSPHOROUS (test code = PHOS) 5.1 mg/dL 2.5-4.5 H [id number] 05:13:00 Test Item Value Reference Range Interpretation Comments MAGNESIUM (test code = MAG) 1.7 mg/dL 1.6-2.3 N URIC [id number] 05:13:00 Test Item Value Reference Range Interpretation Comments URIC ACID (test code = URIC) 6.9 mg/dL 2.5-6.2 H CBC W/AUTO [id number] 04:54:00 Test Item Value Reference Range Interpretation Comments WHITE BLOOD CELL (test code = 7.7 x10 3/uL 5.0-12.0 N WBC) RED BLOOD CELL (test code = 3.32 x10 6/uL 4.20-5.40 L RBC) HEMOGLOBIN (test code = HGB) 9.6 g/dL 12.0-16.0 L HEMATOCRIT (test code = HCT) 30.3 % 36.0-46.0 L MEAN CELL VOLUME (test code = 91 fL 81-99 N MCV) MEAN CELL HGB (test code = MCH) 28.9 pg 27-31 N MEAN CELL HGB CONCENTRATION 31.7 g/dL 33-37 L (test code = MCHC) RED CELL DISTRIBUTION WIDTH 14.5 % 11.5-15.5 N (test code = RDW) PLATELET COUNT (test code = 211 x10 3/uL 130-400 N PLT) MEAN PLATELET VOLUME (test code 9.6 fL 9.4-16.4 N = MPV) NEUTROPHIL % (test code = NT%) 81.9 % 43-65 H IMMATURE GRANULOCYTE % (test 0.3 % 0.0-2.0 N code = IG%) LYMPHOCYTE % (test code = LY%) 10.4 % 20.5-45.5 L MONOCYTE % (test code = MO%) 7.3 % 5.5-11.7 N EOSINOPHIL % (test code = EO%) 0.0 % 0.9-2.9 L BASOPHIL % (test code = BA%) 0.1 % 0.2-1.0 L NUCLEATED RBC % (test code = 0.0 % 0-1.0 N NRBC%) NEUTROPHIL # (test code = NT#) 6.31 x10 3/uL 2.2-4.8 H IMMATURE GRANULOCYTE # (test 0.02 x10 3/uL 0-0.03 N code = IG#) LYMPHOCYTE # (test code = LY#) 0.80 x10 3/uL 1.3-2.9 L MONOCYTE # (test code = MO#) 0.56 x10 3/uL 0.3-0.8 N EOSINOPHIL # (test code = EO#) 0.00 x10 3/uL 0.0-0.2 N BASOPHIL # (test code = BA#) 0.01 x10 3/uL 0.0-0.1 N [id number] 21:53:00 Test Item Value Reference Range Interpretation Comments GLUBED (test code = GLUBED) 156 MG/DL 74-106 H [id number] 19:07:00 Test Item Value Reference Range Interpretation Comments GLUBED (test code = GLUBED) 139 MG/DL 74-106 H [id number] 10:05:00 Test Item Value Reference Range Interpretation Comments GLUBED (test code = GLUBED) 149 MG/DL 74-106 H COMPREHENSIVE METABOLIC [id number] 15:41:00 Test Item Value Reference Range Interpretation Comments SODIUM (test code = 137 mmol/L 137-145 N NA) POTASSIUM (test 4.2 mmol/L 3.4-5.0 N code = K) CHLORIDE (test code 104 mmol/L 98-107 N = CL) CARBON DIOXIDE 21 mmol/L 22-30 L (test code = CO2) ANION GAP (test 16 code = GAP) GLUCOSE (test code 115 mg/dL 74-106 H = GLU) BLOOD UREA NITROGEN 44 mg/dL 7-17 H (test code = BUN) GLOMERULAR 21 mL/min The Glomerular FILTRATION RATE Filtration R ate is a (test code = GFR) calculated parameterbased on serum Creatinine, pat ient age and sex. GFR va luesless than 60 mL/min/ 1.73 square meters a re indicative ofCh ronic Kidney Disease. Values less than 15 mL/min/1.73squa re meters indicate Kidney failure. The calculation for GFR is based on the CK D-EPI (2020) calculat ion. This formulais race indifferent and is the recommended for tiki for GFRby the [facility] for Adults.The GFR will not calculate if th e sex is unknown or if thepatient's ag e is <18 years. CREATININE (test 2.3 mg/dL 0.5-1.0 H code = CREAT) TOTAL PROTEIN (test 7.6 g/dL 6.3-8.2 N code = PROT) " A positive bias m ay occur for patients ta martina Eltrombopag(a b one marrow stimulan t used to treat thrombocytopeni a andaplastic anemia)." ALBUMIN (test code 4.7 g/dL 3.5-5.0 N = ALB) CALCIUM (test code 10.0 mg/dL 8.4-10.2 N = CA) BILIRUBIN TOTAL 0.6 mg/dL 0.2-1.3 N "A positive bias may (test code = BILT) occur for patients taking Eltrombo pag(a bone marrow sti mulant used to treat thrombocytopeni a andaplastic ane marvin)." BILIRUBIN 0 mg/dL 0-0.3 N "A positive sangita s may CONJUGATED (test occur for p atients code = BILCON) taking Eltrom bopag(a bone marrow sti mulant used to treat thrombocytopeni a andaplastic ane marvin)." C ONJUGATE D BILIRUBIN IS THE REPLACEMENT ASS AY FOR DIRECTBILIRUBIN . BILIRUBIN 0.2 mg/dL 0-1.1 N UNCONJUGATED (test code = BILUNC) SGOT/AST (test code 26 U/L 15-46 N = AST) SGPT/ALT (test code 12 U/L 0-34 N = ALT) ALKALINE 91 U/L 38-126 N PHOSPHATASE (test code = ALKP) INDEX HEMOLYSIS < 15 0-100 N (test code = Index/DL HEMINDEX) - XR CHEST 2 [id number] 15:32:00 [facility] 1945 Sex: F FAX:Rajeev Khanna DO [phone] [place]: St: PRE Name: MARCELINA ROTHMAN [facility] : 1945 Age/S: 76/F [address] Unit #: [id number] Loc: [address] [address] Phys: Rajeev Khanna DO Acct: [id number] Dis Date: Status: PRE IN PHONE #: [phone] Exam Date: 09/01/2022 1310 FAX #: [phone] Reason: PREOP EXAMS: CPT CODE: [id number] XR CHEST 2 V 71086 EXAM: CHEST X-RAY INDICATION: 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 No pneumothorax or pleural effusion. Mediastinum: Unremarkable Cardiac: Unremarkable Osseous structures are within normal limits. IMPRESSION: 1. No acute cardiopulmonary process. The above report was generated by using voice recognition. at 1532 Reported and signed by: Reese Pepe MD CC: Rajeev Khanna DO Technologist: ROBBI EVERETT; STUDENT 2ND YEAR Trnscrd Date/Time/By: 09/01/2022(3152) : By: Maxwell PAGE 1 Signed Report FAX: Rajeev Khanna DO [phone] [place]: St: PRE---- Name: MARCELINA ROTHMAN [place] : 1945 Age/S: 76/F [address] Unit #: [id number] Loc: [id number] [place] [address] Phys: Rajeev Khanna DO Acct: [id number] Dis Date: Status: PRE IN PHONE #: [phone] Exam Date: 09/01/2022 1310 FAX #: [phone] Reason: PREOP EXAMS: CPT CODE: [id number] XR CHEST 2 V 93742 (Continued) Orig Print D/T: S: 09/01/2022 (1536) PAGE 2 Signed ReportURINALYSIS [id number] 15:21:00 Test Item Value Reference Range Interpretation Comments UA GLUCOSE DIPSTICK NEGATIVE MG/DL NEGATIVE (test code = DGLUU) UA BILIRUBIN NEGATIVE NEGATIVE DIPSTICK (test code = BILU) UA KETONE DIPSTICK NEGATIVE MG/DL NEGATIVE (test code = KETU) UA SPECIFIC GRAVITY 1.020 1.000-1.030 (test code = SGU) UA BLOOD DIPSTICK NEGATIVE NEGATIVE (test code = RADHA) UA PH DIPSTICK (test 6.0 5.0-8.0 code = TAMAR) UA PROTEIN DIPSTICK 30 (1+) MG/DL NEGATIVE A (test code = PROU) UA UROBILINOGEN 0.2 EU/dL See_Comment [Automated DIPSTICK (test code message] The = URO) system which generated this result transmit lion reference range : <=1.0. The reference range was not used to interpret this result as normal/abnormal . UA NITRITE DIPSTICK POSITIVE NEGATIVE A (test code = GREGORY) UA LEUKOCYTE TRACE NEGATIVE A ESTERASE DIPSTICK (test code = LEUU) UA WBC (test code = 6-10 /HPF See_Comment A [Automa lion WBCU) message] The system which generated this result transmit lion reference range : <4-5. The reference range was not used to interpret this result as normal/abnormal . UA RBC (test code = 0-3 /HPF See_Comment [Automa lion RBCU) message] The system which generated this result transmit lion reference range : <4-5. The reference range was not used to interpret this result as normal/abnormal . UA BACTERIA (test 4+ /HPF None-Rare A code = BACU) UA SQUAMOUS CELLS 16-25 (MODERATE) See_Comment A [Auto mated (test code = SQU) /HPF message] T he system which generated this result transmit lion reference range : 0-5 (RARE). The reference range was not used to interpret this result as normal/abnormal . UA HYALINE CAST 0-3 /LPF See_Comment [Automated (test code = HYALU) message] The system which generated this result transmit lion reference range : <4-5. The reference range was not used to interpret this result as normal/abnormal . UA MUCUS (test code Rare /LPF See_Comment A [Automa lion = MUCU) message] The system which generated this result transmit lion reference range : <Rare. The reference range was not used to interpret this result as normal/abnormal . UA COLOR (test code YELLOW YELLOW = COLU) UA APPEARANCE (test CLEAR CLEAR code = APPU) PROTHROMBIN [id number] 15:21:00 Test Item Value Reference Range Interpretation Comments PROTHROMBIN TIME 10.5 SECONDS 9.2-12.1 N PATIENT (test code = PTP) INTERNATIONAL NORMAL 1.0 The INR is to be used RATIO (test code = only for monitoring INR) ORAL ANTICOAGULANTTH ERAPY. Indication INR Value1. Prophylaxis/nicolas atment of: Venous Thrombosis, Pul monary Embolism 2.0 - 3.02. Prevention of s ystemic embolism from: Tissue heart valves 2. 0 - 3.0 Acute myocardia l infarction (to present systemic emboli sm)* 2.0 - 3.0 Valvu lar heart disease 2 .0 - 3.0 Atrial fibrillation 2. 0 - 3.03. Mechanica l prosthetic valv es (high risk) 2.5 - 3.5 * If oral anticoagulant t herapy is elected to preventrecurren t myocardial infa rction, an INR of 2.5-3 .5 isrecommended, consistent with Food and Drug Administrationr ecommen dations. THROMBOPLASTIN TIME [id number] 15:21:00 Test Item Value Reference Range Interpretation Comments THROMBOPLASTIN TIME 33.0 SECONDS 23.4-37.0 N Therape utic Range PARTIAL (test code = for Hep tres PTT) EFFECTIVE Heparin IU/mL a PTT Seconds0.3 64.3 0.7 88.8 CBC W/AUTO [id number] 15:11:00 Test Item Value Reference Range Interpretation Comments WHITE BLOOD CELL (test code = 6.0 x10 3/uL 5.0-12.0 N WBC) RED BLOOD CELL (test code = 4.02 x10 6/uL 4.20-5.40 L RBC) HEMOGLOBIN (test code = HGB) 11.5 g/dL 12.0-16.0 L HEMATOCRIT (test code = HCT) 35.3 % 36.0-46.0 L MEAN CELL VOLUME (test code = 88 fL 81-99 N MCV) MEAN CELL HGB (test code = MCH) 28.6 pg 27-31 N MEAN CELL HGB CONCENTRATION 32.6 g/dL 33-37 L (test code = MCHC) RED CELL DISTRIBUTION WIDTH 14.5 % 11.5-15.5 N (test code = RDW) PLATELET COUNT (test code = 233 x10 3/uL 130-400 N PLT) MEAN PLATELET VOLUME (test code 9.7 fL 9.4-16.4 N = MPV) NEUTROPHIL % (test code = NT%) 61.5 % 43-65 N IMMATURE GRANULOCYTE % (test 0.3 % 0.0-2.0 N code = IG%) LYMPHOCYTE % (test code = LY%) 26.7 % 20.5-45.5 N MONOCYTE % (test code = MO%) 7.4 % 5.5-11.7 N EOSINOPHIL % (test code = EO%) 2.9 % 0.9-2.9 N BASOPHIL % (test code = BA%) 1.2 % 0.2-1.0 H NUCLEATED RBC % (test code = 0.0 % 0-1.0 N NRBC%) NEUTROPHIL # (test code = NT#) 3.66 x10 3/uL 2.2-4.8 N IMMATURE GRANULOCYTE # (test 0.02 x10 3/uL 0-0.03 N code = IG#) LYMPHOCYTE # (test code = LY#) 1.59 x10 3/uL 1.3-2.9 N MONOCYTE # (test code = MO#) 0.44 x10 3/uL 0.3-0.8 N EOSINOPHIL # (test code = EO#) 0.17 x10 3/uL 0.0-0.2 N BASOPHIL # (test code = BA#) 0.07 x10 3/uL 0.0-0.1 N Urine [id number] 09:41:06 Test Item Value Reference Range Interpretation Comments Result (test code = <10,000 col/mL skin 6463-4) [facility] [id number] 09:41:06 Test Item Value Reference Range Interpretation Comments Result (test code = <10,000 col/mL skin 6463-4) [facility] Culture 2021-11-11 21:25:50 Test Item Value Reference Range Interpretation Comments Color, UA (test code Light Yellow = 5778-6) Clarity, UA (test Clear code = 5767-9) Specific Berkey, UA 1.012 1.001-1.035 (test code = 5811-5) pH, UA (test code = 5.5 5.0-8.0 5803-2) Protein, UA (test Negative Negative code = 01878-4) Glucose, UA (test Negative Negative code = 365) Ketones, UA (test Negative Negative code = 2514-8) Bilirubin, UA (test Negative Negative code = 84081-8) Blood, UA (test code Negative Negative = 13286-2) Nitrite, UA (test Negative Negative code = 5802-4) Leukocytes, UA (test Moderate Negative A code = 5799-2) Urobilinogen, UA 0.2 mg/dL 0.2-1.0 (test code = 75480-4) RBC, UA (test code = 2 See_Comment [Autom ated 77214-8) message] The system which generated this result transmit lion reference range : /HPF. The reference range was not used to interpret this result as normal/abnormal . WBC, UA (test code = 12 See_Comment [Autom ated 5821-4) message] The system which generated this result transmit lion reference range : /HPF. The reference range was not used to interpret this result as normal/abnormal . Bacteria, UA (test None Seen code = 41804-7) Mucus (test code = Rare 8247-9) Squam Epithel, UA 2 See_Comment [Automate d (test code = 35945-8) messag e] The system which generated this result transmit lion reference range : /HPF. The reference range was not used to interpret this result as normal/abnormal . Crystals, Urine (test None Seen code = 42348-2) Specimen Source (test code = 2795) RENA (test code = RENA) Harpooner ID - [auto]Harpooner ID - tech Lab Interpretation Abnormal (test code = 14453-2) [facility] Culture 2021-11-11 21:25:50 Test Item Value Reference Range Interpretation Comments Color, UA (test code Light Yellow = 5778-6) Clarity, UA (test Clear code = 5767-9) Specific Berkey, UA 1.012 1.001-1.035 (test code = 5811-5) pH, UA (test code = 5.5 5.0-8.0 5803-2) Protein, UA (test Negative Negative code = 45173-4) Glucose, UA (test Negative Negative code = 365) Ketones, UA (test Negative Negative code = 2514-8) Bilirubin, UA (test Negative Negative code = 14649-9) Blood, UA (test code Negative Negative = 18422-4) Nitrite, UA (test Negative Negative code = 5802-4) Leukocytes, UA (test Moderate Negative A code = 5799-2) Urobilinogen, UA 0.2 mg/dL 0.2-1.0 (test code = 56508-3) RBC, UA (test code = 2 See_Comment [Autom ated 53485-1) message] The system which generated this result transmit lion reference range : /HPF. The reference range was not used to interpret this result as normal/abnormal . WBC, UA (test code = 12 See_Comment [Autom ated 5821-4) message] The system which generated this result transmit lion reference range : /HPF. The reference range was not used to interpret this result as normal/abnormal . Bacteria, UA (test None Seen code = 51712-1) Mucus (test code = Rare 8247-9) Squam Epithel, UA 2 See_Comment [Automate d (test code = 10979-1) simranag e] The system which generated this result transmit lion reference range : /HPF. The reference range was not used to interpret this result as normal/abnormal . Crystals, Urine (test None Seen code = 41116-3) Specimen Source (test code = 2795) RENA (test code = RENA) Harpooner ID - [auto]Harpooner ID - tech Lab Interpretation Abnormal (test code = 97278-2) [facility] [id number] 21:25:50 Test Item Value Reference Range Interpretation Comments COLOR (BEAKER) (test code = 470) Light Yellow CLARITY (BEAKER) (test code = Clear 469) SPECIFIC GRAVITY UA (BEAKER) 1.012 1.001-1.035 (test code = 468) PH UA (BEAKER) (test code = 467) 5.5 5.0-8.0 PROTEIN UA (BEAKER) (test code = Negative Negative 464) GLUCOSE UA (BEAKER) (test code = Negative Negative 365) KETONES UA (BEAKER) (test code = Negative Negative 371) BILIRUBIN UA (BEAKER) (test code Negative Negative = 462) BLOOD UA (BEAKER) (test code = Negative Negative 461) NITRITE UA (BEAKER) (test code = Negative Negative 465) LEUKOCYTE ESTERASE UA (BEAKER) Moderate Negative A (test code = 466) UROBILINOGEN UA (BEAKER) (test 0.2 mg/dL 0.2-1.0 code = 463) RBC UA (BEAKER) (test code = 2 /HPF 519) WBC UA (BEAKER) (test code = 12 /HPF 520) BACTERIA (BEAKER) (test code = None Seen 517) MUCUS (BEAKER) (test code = Rare 1574) SQUAMOUS EPITHELIAL (BEAKER) 2 /HPF (test code = 516) CRYSTALS, URINE (BEAKER) (test None Seen code = 1521) SOURCE(BEAKER) (test code = 2795) Harpooner ID - [auto]Harpooner ID - techHIGH SENSITIVITY TROPONIN [id number] 20:44:10 Test Item Value Reference Range Interpretation Comments HIGH SENSITIVITY 12 pg/ml See_Comment [Automated message] TROPONIN I (test code = The system which 6387838) generated this result transmitted ref erence range: <=17. Th e reference range was not used to int erpret this result as normal/abnormal . Harpooner ID - BSThe RED CROSS EXECUTIVE DIRECTOR STAT High Sensitivity Troponin-I results should be used in conjunctionwith other diagnostic information such as ECG, clinical observations and information, and patient symptoms to aid in the diagnosis of [place].COMPREHENSIVE METABOLIC [id number] 20:40:54 Test Item Value Reference Range Interpretation Comments TOTAL PROTEIN 6.9 gm/dL 6.0-8.3 (BEAKER) (test code = 770) ALBUMIN (BEAKER) 3.8 g/dL 3.5-5.0 (test code = 1145) ALKALINE PHOSPHATASE 82 U/L 40-150 (BEAKER) (test code = 346) BILIRUBIN TOTAL 0.5 mg/dL 0.2-1.2 (BEAKER) (test code = 377) SODIUM (BEAKER) (test 137 meq/L 136-145 code = 381) POTASSIUM (BEAKER) 4.3 meq/L 3.5-5.1 (test code = 379) CHLORIDE (BEAKER) 108 meq/L 98-107 H (test code = 382) CO2 (BEAKER) (test 19 meq/L 22-29 L code = 355) BLOOD UREA NITROGEN 20 mg/dL 7-21 (BEAKER) (test code = 354) CREATININE (BEAKER) 2.21 mg/dL 0.57-1.25 H (test code = 358) GLUCOSE RANDOM 109 mg/dL 70-105 H (BEAKER) (test code = 652) CALCIUM (BEAKER) 9.9 mg/dL 8.4-10.2 (test code = 697) AST (SGOT) (BEAKER) 19 U/L 5-34 (test code = 353) ALT (SGPT) (BEAKER) 9 U/L 6-55 (test code = 347) EGFR (BEAKER) (test 22 mL/min/1.73 ESTIMA LION GFR IS code = 1092) sq m NOT ACCURATE CREATININE CLEARANCE IN PREDICTING GLOMERULAR FILTRATION RATE . ESTIMATED GFR I S NOT APPLICABLE FOR DIALYSIS PATIEN TS. Harpooner ID - [id number] 20:40:30 Test Item Value Reference Range Interpretation Comments LIPASE (BEAKER) (test code = 749) 55 U/L 8-78 Harpooner ID - [id number] 20:40:29 Test Item Value Reference Range Interpretation Comments MAGNESIUM (BEAKER) (test code = 1.1 mg/dL 1.6-2.6 L 627) Harpooner ID - BSCBC W/PLT COUNT & AUTO [id number] 20:03:40 Test Item Value Reference Range Interpretation Comments WHITE BLOOD CELL COUNT (BEAKER) 8.9 K/ L 3.5-10.5 (test code = 775) RED BLOOD CELL COUNT (BEAKER) 3.77 M/ L 3.93-5.22 L (test code = 761) HEMOGLOBIN (BEAKER) (test code = 11.4 GM/DL 11.2-15.7 410) HEMATOCRIT (BEAKER) (test code = 35.8 % 34.1-44.9 411) MEAN CORPUSCULAR VOLUME (BEAKER) 95.0 fL 79.4-94.8 H (test code = 753) MEAN CORPUSCULAR HEMOGLOBIN 30.2 pg 25.6-32.2 (BEAKER) (test code = 751) MEAN CORPUSCULAR HEMOGLOBIN CONC 31.8 GM/DL 32.2-35.5 L (BEAKER) (test code = 752) RED CELL DISTRIBUTION WIDTH 15.2 % 11.7-14.4 H (BEAKER) (test code = 412) PLATELET COUNT (BEAKER) (test 242 K/CU MM 150-450 code = 756) MEAN PLATELET VOLUME (BEAKER) 9.4 fL 9.4-12.3 (test code = 754) NUCLEATED RED BLOOD CELLS 0 /100 WBC 0-0 (BEAKER) (test code = 413) NEUTROPHILS RELATIVE PERCENT 75 % (BEAKER) (test code = 429) LYMPHOCYTES RELATIVE PERCENT 16 % (BEAKER) (test code = 430) MONOCYTES RELATIVE PERCENT 7 % (BEAKER) (test code = 431) EOSINOPHILS RELATIVE PERCENT 2 % (BEAKER) (test code = 432) BASOPHILS RELATIVE PERCENT 1 % (BEAKER) (test code = 437) NEUTROPHILS ABSOLUTE COUNT 6.68 K/ L 1.56-6.13 H (BEAKER) (test code = 670) LYMPHOCYTES ABSOLUTE COUNT 1.42 K/ L 1.18-3.74 (BEAKER) (test code = 414) MONOCYTES ABSOLUTE COUNT (BEAKER) 0.60 K/ L 0.24-0.36 H (test code = 415) EOSINOPHILS ABSOLUTE COUNT 0.13 K/ L 0.04-0.36 (BEAKER) (test code = 416) BASOPHILS ABSOLUTE COUNT (BEAKER) 0.05 K/ L 0.01-0.08 (test code = 417) IMMATURE GRANULOCYTES-RELATIVE 1 % 0-1 PERCENT (BEAKER) (test code = 2801) RAD, CHEST, 2 [id number] 18:12:00Reason for exam:->[facility] : 1945 Sex: FFINAL REPORT Exam: RAD, CHEST, 2 VIEWSDate: 11/11/2021 6:10 PM Indication:HYPERTENSIONComparison: None FINDINGS: Lines/Tubes:None Lungs:The lungs are well inflated. No focal consolidation or pulmonary edema. Pleura:No pleural effusion. No pneumothorax. Heart/Mediastinum:The cardiomediastinal silhouette is normal in size and contour. Bones/Soft Tissues: No acute osseous abnormality. Advanced degenerative changes of the spine are noted. Upper abdomen: Unremarkable. IMPRESSION:Negative foracute intrathoracic process. Signed: Chet Guillermo MDReport Verified Date/Time: 11/11/2021 18:12:34 Reading Location: [facility] Troponin I High [id number] 15:43:00 Test Item Value Reference Range Interpretation Comments Troponin I High 7.86 pg/mL 0-45 N Interpretive Sensitivity (test Comments:* The 99th code = TROPHS) percentile UR L for the assay is <45 pg /ml.* A rise and fall i n Troponin I with at least onevalue above the 99th percen tile with clinical e vidence ofmyocardial is chemia would support a diagnosis of AM I. Adelta of at le ast 20% is recommended to assess acutecha nges in results above t he 99th percentile in serialmeasureme nts. Complete Blood Count Auto [id number] 13:35:00 Test Item Value Reference Range Interpretation Comments White Blood Count (test code = 9.7 x10 3/uL 4.4-10.5 N WBCT) Red Blood Count (test code = 4.04 x10 6/uL 3.75-5.20 N RBC) Hemoglobin (test code = HGBT) 12.2 g/dL 12.2-14.8 N Hematocrit (test code = HCTT) 37.9 % 36.5-44.4 N Mean Corpuscular Volume (test 93.80 fL 80.00-100.00 N code = MCV) Mean Corpuscular Hemoglobin 30.2 pg 27.0-32.5 N (test code = MCH) Mean Corpuscular HGB Conc 32.20 g/dL 32.00-37.50 N (test code = MCHC) RDW Coefficient of Variation 15.0 % 11.5-14.5 H (test code = RDWCV) Platelet Count (test code = 274.0 x10 3/uL 140.0-440.0 N PLTT) Mean Platelet Volume (test 9.5 fL code = MPV) Immature Granulocytes % (Auto) 0.7 % 0.0-5.0 N (test code = IMMGRAN%) Neutrophils % (Auto) (test 75.6 % 36.0-70.0 H code = NE%) Lymphocytes % (Auto) (test 15.1 % 12.0-44.0 N code = LY%) Monocytes % (Auto) (test code 6.8 % 0.0-11.0 N = MO%) Eosinophils % (Auto) (test 1.3 % 0.0-7.0 N code = EO%) Basophils % (Auto) (test code 0.5 % 0.0-2.0 N = BA%) Immature Granulocytes # (Auto) 0.07 x10 3/uL (test code = IMMGRAN#) Neutrophils # (Auto) (test 7.4 x10 3/uL 1.6-7.4 N code = NE#) Lymphocytes # (Auto) (test 1.47 x10 3/uL 0.50-4.60 N code = LY#) Monocytes # (Auto) (test code 0.66 x10 3/uL 0.00-1.20 N = MO#) Eosinophils # (Auto) (test 0.13 x10 3/uL 0.00-0.74 N code = EO#) Basophils # (Auto) (test code 0.05 x10 3/uL 0.00-0.21 N = BA#) nRBC Abs (test code = NRBCA) 0 nRBC Pct (test code = NRBCP) 0 % Comprehensive Metabolic [id number] 13:35:00 Test Item Value Reference Range Interpretation Comments SODIUM (test code = NA) 138.0 mmol/L 136.0-145.0 N Potassium,K (test code = K) 4.6 mmol/L 3.0-5.1 N Chloride (test code = CL) 105 mmol/L 98-107 N Carbon Dioxide (test code = CO2) 21 mmol/L 20-31 N Anion Gap (test code = GAP) 12 mmol/L 5-15 N Blood Urea Nitrogen (test code = 21 mg/dL 9-23 N BUN) Creatinine (test code = CREATT) 2.27 mg/dL 0.55-1.02 H Creatinine Clr Calc Pharmacy 26.19 mL/min (test code = CRCLPHA) Estimated GFR ( Harika 23 mL/min/1.73m2 (test code = EGFRAA) Estimated GFR (Non Afr Harika 20 mL/min/1.73m2 (test code = EGFRNAA) BUN/Creatinine Ratio (test code 9 ratio 10-20 L = BCRATIO) Glucose (test code = GLU) 109 mg/dL 74-106 H Osmolality,Calculated (test code 289.5 = OSMOC) Calcium (test code = CA) 10.5 mg/dL 8.3-10.6 N Bilirubin,Total (test code = 0.6 mg/dL 0.2-1.1 N BILIT) Aspartate Amino Transferase 29 U/L 0-34 N (test code = AST) Alanine Aminotransferase (test 8 U/L 10-49 L code = ALT) Total Protein (test code = TP) 7.2 g/dL 5.7-8.2 N Albumin Level (test code = ALB) 4.4 g/dL 3.2-4.8 N Globulin (test code = GLOB) 2.8 mg/dL 2.3-3.5 N Albumin/Globulin Ratio (test 1.6 ratio 0.8-2.0 N code = AGRATIO) Alkaline Phosphatase (test code 99 U/L 46-116 N = ALP) Troponin I High [id number] 13:35:00 Test Item Value Reference Range Interpretation Comments Troponin I High 7.28 pg/mL 0-45 N Interpretive Sensitivity (test Comments:* The 99th code = TROPHS) percentile UR L for the assay is <45 pg /ml.* A rise and fall i n Troponin I with at least onevalue above the 99th percen tile with clinical e vidence ofmyocardial is chemia would support a diagnosis of AM I. Adelta of at le ast 20% is recommended to assess acutecha nges in results above t he 99th percentile in serialmeasureme nts. Prothrombin Time [id number] 13:35:00 Test Item Value Reference Range Interpretation Comments Prothrombin Time 10.9 Seconds 9.3-12.1 N *Note New R eference (test code = PT) Range INR (test code = 1.0 ratio 0.9-1.2 N Reference I nterval is INR) for non-anticoagula lion patients.Sugges lion INR Therapeutic Range for Vitamin K antogonistthera py:LEV ELS OFTHERAPY INDICATIONS TAR GET INR RANGEStanda rd Dose Venous Thrombosis, 2.0 - 3.0 Atrial Fibrilla tion, Pulmonary Embolism.High D ose Valvular Heart Disease, 2.5 - 3.5 Mechanical Hear t, Intracardiac Thrombosis.*Not e New Reference Range Partial Thromboplastin [id number] 13:35:00 Test Item Value Reference Range Interpretation Comments Partial Thromboplastin 31.5 Seconds 23.9-32.8 N *Note New Time (test code = PTT) Refer ence Range B-Type Natriuretic [id number] 13:35:00 Test Item Value Reference Range Interpretation Comments B-Type Natriuretic Peptide (test 19.3 pg/mL 0.0-99.9 N code = BNP) Comprehensive Metabolic [id number] 22:43:00 Test Item Value Reference Range Interpretation Comments Sodium (test code = 136 mmol/L 135-145 N NA) Potassium (test 3.6 mmol/L 3.5-5.1 N code = K) Chloride (test code 96 mmol/L 98-105 L = CL) Carbon Dioxide 27 mmol/L 22-29 N (test code = CO2) Glucose (test code 170 mg/dL 70-115 H = GLU) Blood Urea Nitrogen 61 mg/dL 8-23 H (test code = BUN) Creatinine (test 2.2 mg/dL 0.5-0.9 H code = CREAT) Calcium (test code 9.6 mg/dL 8.3-10.5 N = CA) Prot Total (test 7.2 g/dL 6.4-8.3 N code = TP) Albumin (test code 4.2 g/dL 3.5-5.2 N = ALB) A/G Ratio (test 1.4 Ratio code = AGRATIO) Globulin (test code 3.0 2.9-3.1 N = GLOB) Bili Total (test 0.3 mg/dL 0.1-0.9 N code = TBIL) Alk Phos (test code 107 U/L 35-104 H = APHOS) AST (test code = 24 U/L 1-32 N AST) ALT (test code = 10 U/L 1-33 N ALT) BUN/Creatinine 27.7 Ratio (test code = BCRATIO) Anion Gap (test 13 mmol/L 7-16 N code = AGAP) Estimated GFR (test 23 eGFR (es timated code = GFR) mL/min/1.73m2 Glomerular Yoni tration Rate) is an est imated value,calculate d from the patient's s latonia creatinine usin g the MDRD equation.I t is NOT the patient 's actual GFR. The eGFR provides a more clinicallyusefu l measure of kidn ey disease than se rum creatinine alone.This calculation adriano es sex and race into account, if the informationis provided. If th e race is not provided , and the patient isAaron can, multiply by 1.2 12. If sex is not prov ided, and thepatient is female, multipl y by 0.742. Results for patients <18 ye ars ofage have not been validated by th e MDRD study and eve d be interpretedwith caution.eGFR Re sult Interpretation: eGFR > or = 60 is in t he Normal RangeeGF R < 60 may mean kidney diseaseeGFR < 1 5 may mean kidney failureRange s recommended by the National Kidney Foundation,http ://nkd ep.nih.gov Lipid [id number] 22:43:00 Test Item Value Reference Range Interpretation Comments Cholesterol (test 140 mg/dL 0-200 N code = CHOL) Triglycerides (test 154 mg/dL 9-200 N code = TRIG) HDL (test code = 35 mg/dL 50-60 L HDL) Chol/HDL (test code 4.0 Ratio 0.0-4.4 N = CHOLPHDL) LDL, Calculated 74 0-130 N (NOTE)RISK O F HEART (test code = LDLC) DISEASEPu blished by [place] Heart AssociationAnal yte Optimal Boderl ine Increased RiskC HOL <200 200-239 >240TRI G <150 150-199 >200HD L Male: >60 <40HDL Fema le: >60 <50LDL < 100 130-159 >160LDL NEAR OPTIMAL IS 100- 129 VLDL (test code = 31 mg/dL 5-40 N VLDL) LDL/HDL (test code = 2 LDLPHDL) [id number] 22:41:00 Test Item Value Reference Range Interpretation Comments NT ProBnp (test code = PBNP) 360 pg/mL 0-124 H CBC with [id number] 22:36:00 Test Item Value Reference Range Interpretation Comments WBC (test code = WBC) 5.8 K/cumm 4.4-10.5 N RBC (test code = RBC) 4.14 M/cumm 3.75-5.20 N Hemoglobin (test code = HGB) 11.7 gm/dL 12.2-14.8 L Hematocrit (test code = HCT) 36.2 % 36.5-44.4 L MCV (test code = MCV) 87.5 fL 80-100 N MCH (test code = MCH) 28.2 pg 27.0-32.5 N MCHC (test code = MCHC) 32.2 g/dL 32.0-37.5 N RDW (test code = RDW) 12.7 % 11.5-14.5 N Platelet Count (test code = 203 K/cumm 140-440 N PLTCT) MPV (test code = MPV) 9.6 fL Diff Method (test code = DIFFM) Auto Neutrophil (test code = NEUT) 61.5 % 36-70 N Lymphocyte (test code = LYMPH) 28.3 % 12-44 N Monocyte (test code = MONO) 5.9 % 0-11 N Eosinophil (test code = EOS) 3.5 % 0-7 N Basophil (test code = BASO) 0.8 % 0-2 N Neutro Abs (test code = ANEUT) 3.6 K/cumm 1.6-7.4 N Lymph Abs (test code = ALYMPH) 1.6 K/cumm 0.5-4.6 N Hemphill Abs (test code = AMONO) 0.3 K/cumm 0.0-1.2 N Eos Abs (test code = AEOS) 0.20 K/cumm 0.00-0.74 N Baso Abs (test code = ABASO) 0.1 K/cumm 0.00-0.21 N XR chest 1V [facility] [address] [place], [place] [id number] Patient Name: Marcelina Rothman Medical Record#: [id number] Address: City/State/Zip: Attending Dr: Bonifacio Garza MD Phone: Insurance: Self Pay /Age/Sex: 1945/76/F Admit/RegDate: 11/11/[address]: MD Jose Mead, PAC Location: [facility]/ PCP: Date of Service: 11/11/21 Order (s): XR chest 1V CPT Code: 29361 Report Number: [id number] Reason for Exam: Shortness of Breath EXAMINATION: XR chest 1V CLINICAL INDICATION: Female, 76 years year old with Shortness of Breath CO MPARISON: None. FINDINGS: Single view(s) of the chest submitted. The heart and mediastinum are normal. The aorta is calcified at the arch. Small nodular density in the left upper and right midlung field are likely granulomas. No lobar consolidation, pneumothorax or effusion seen. Visualized skeleton is normal. IMPRESSION: No acute cardiopulmonary disease. Electronically signed by: Rachel Dennison MD 11/11/2021 2:24 PM CDT Dictated By: Rachel Dennison MD 11/11/211408 Signed By: Rachel Dennison MD 11/11/21 142 TD/TT: 11/11/211408 Tech: [id number] cc: ISLMD* MD Jose Mead PACEKG Electrocardiogram [facility] [address] [place] [id number] Patient Name: Marcelina Rothman Medical Record#: [id number] Address: [place] [address] /State/Zip: [place], [place] [id number] Attending Dr: Bonifacio Garza MD Insurance: Medicare A B /Age/Sex: 1945/76/F Self Pay Admit/Reg Date: 11/11/[address]: JOHNSON Delcid Location: [facility]/ PCP: Pcp-Md ALEJANDRA Burgos Date of Service: 11/11/21 Order (s): EKG Electrocardiogram CPT Code: 60878 Report Number: [id number] Reason for Exam: Chest pain Sinus tachycardia Multiple premature complexes, vent supraven Probable left atrial enlargement LVH with secondary repolarization abnormality Anterior Q waves, possibly due to LVH Summary: Abnormal ECG Dictated By: Balta Stinson MD 11/11/21 1310 Signed By: Balta Stinson MD 11/12/21 1000 TD/TT: 11/11/21 131 Tech: SVCCPACS cc: ISLMD; PCPNO* MD Jose Mead PAC; Pcp-Md ALEJANDRA Burgos
[2022-09-16 13:02] LABS: Absolute Lymphocytes (CBC) 0.8 K/uL (0.7-4.9); Hematocrit 31.1 % (36.0-45.0); Lymphocytes % 7.3 % (15.3-44.8); MCV 85.9 fL (80-100); MPV 6.5 fL (7.6-11.3); RBC Red Blood Cell Count 3.62 M/uL (3.86-4.86)
[2022-09-16 13:09] LABS: Protime INR 1.07
[2022-09-16 13:19] LABS: Albumin 3.1 g/dL (3.4-5.0); Bilirubin Total 0.6 mg/dL (0.2-1.0); Potassium 3.9 mmol/L (3.5-5.1)
--- NOTE | 2022-09-16 13:47 | RAD REPORT ---
EXAM DESCRIPTION: CT - Abdomen Pelvis Wo Contrast - 09/16/2022 1:30 pm CLINICAL HISTORY: Abdominal pain. rectal bleeding, abd pain, recent fistula surgery COMPARISON: Abdomen Pelvis Wo Contrast dated 07/30/2022 TECHNIQUE: CT imaging of the abdomen and pelvis was performed without contrast. Solid organ, bowel a nd vascular assessment is limited due to lack of IV and oral contrast. All CT scans are performed using dose optimization technique as appropriate and may include automated exposure control or mA/KV adjustment according to patient size. FINDINGS: Significant subcutaneous emphysema is seen anteriorly extending to the level of the lower chest The liver, spleen, pancreas, adrenal glands and right kidney are within normal limits for a limited n on-contrast examination.Atrophic left kidney. Cholecystectomy clips. Inflammatory changes are seen pelvis. Postsurgical changes present mid rectum. Soft tissue density ma terial is seen in the pelvis adjacent to surgical site measuring approximately 6.4 x 5.3 cm. This may be related hematoma or inflammatory phlegmon. No drainable fluid collection seen. The appendix is no rmal. The osseous structures are within normal limits. IMPRESSION: Postsurgical changes mid rectum are noted. There is inflamed soft tissue density collect ion noted adjacent in the posterior pelvis measuring maximally 6.4 x 5.3 cm. This may represent aging hematoma or inflammatory phlegmon. There is no evidence of drainable abscess collection. A limited non-contrast examination was performed as detailed.
--- NOTE | 2022-09-16 14:44 | EDPHYS ---
Physician Documentation [facility] Name: Marcelina Kinney Age: 76 yrs Sex: Female : 1945 Arrival Date: 09/16/2022 Time: 11:29 Bed 11 Private MD: John Vasquez ED Physician Sharad Paul HPI: 09/16 13:05 This 76 yrs old Female presents to ER via Ambulatory with complaints of Rectal Bleeding rn - colon sx 1.31, Fever, Abdominal Pain. 13:10 The patient presents to the emergency department with bleeding from the rectum/anus, rn that is moderate. Onset: The symptoms/episode began/occurred this morning. Modifying factors: The symptoms are alleviated by nothing, The symptoms are aggravated by bowel movement. The patient has not experienced similar symptoms in the past. The patient has been recently seen by a physician:. Pt s/p colo-vesicula fistula surgery 2 weeks ago at [facility]. This AM began to have rectal bleeding, several episodes, mild abd cramping, + subjective fever. Surgeon told her family to bring her here first for eval then to call him. No syncope. + mild sob. . Historical: - Allergies: 12:14 PENICILLINS; jl7 12:14 Ciprofloxacin; jl7 12:14 Clarithromycin; jl7 12:19 flu vaccine; jl7 - PMHx: 12:14 Hypertensive disorder; jl7 12:17 Diabetes mellitus; Renal failure; Chronic obstructive lung disease; Gout; jl7 - PSHx: 12:14 colorectal resection; jl7 - Immunization history:: Client reports receiving the 2nd dose of the Covid vaccine. - Social history:: Smoking status: Patient denies any tobacco usage or history of. - Family history:: not pertinent. - Hospitalizations: : No recent hospitalization is reported. ROS: 13:10 Constitutional: Negative for chills, and weight loss, Cardiovascular: Negative for rn chest pain, palpitations, and edema, Respiratory: Negative for shortness of breath, cough, wheezing, and pleuritic chest pain, Abdomen/GI: + abd pain and rectal bleeding MS/Extremity: Negative for injury and deformity, Skin: Negative for injury, rash, and discoloration, Neuro: Negative for headache, numbness, tingling, and seizure Exam: 13:10 Constitutional: This is a well developed, well nourished patient who is awake, alert, rn and in no acute distress. Head/Face: Normocephalic, atraumatic. Cardiovascular: Regular rate and rhythm. No pulse deficits. Respiratory: No increased work of breathing, no retractions or nasal flaring. Abdomen/GI: Soft, non-tender Skin: Warm, dry MS/ Extremity: Pulses equal, no cyanosis. Neuro: Awake and alert, GCS 15 Vital Signs: 12:12 BP 148 / 64; Pulse 95; Resp 15; Temp 97.4; Pulse Ox 97% ; jl7 22:46 BP 144 / 72; Pulse 82; Resp 16; Pulse Ox 99% on R/A; kl 23:27 BP 140 / 68; Pulse 94; Resp 15; Temp 98.8(O); Pulse Ox 94% on R/A; ll3 MDM: 11:42 Patient medically screened. rn 14:41 Differential diagnosis: intra-abdominal abscess, hematoma, surgical complication, rn internal dehiscence. Data reviewed: vital signs, nurses notes, lab test result(s), radiologic studies, CT scan, and as a result, I will admit patient. Consideration of Admission/Observation Patient was admitted/placed on observation. Escalation of care including admission/observation considered. Counseling: I had a detailed discussion with the patient and/or guardian regarding: the historical points, exam findings, and any diagnostic results supporting the discharge/admit diagnosis, lab results, radiology results, the need to transfer to another facility, Her surgery was at [facility].. Response to treatment: the patient's symptoms have mildly improved after treatment, and as a result, I will admit patient. 16:10 Management of patient was discussed with the following: Credit Charge Authorizer: Management and case rn discussed with Dr. Rajeev Khanna, with [facility]. Hospital refused transfer initially, then Dr. Khanna called them and they eventually accepted transfer. Transfer center called us to tell us that their ER has 30 holds, and they will "accept patient, but will take patient when they can". . 18:39 ED course: Pt used bathroom, had non-bloody bowel movement, feels better, still waiting rn on approval from [facility]. Family member implied that if they continue to wait much longer she will want to sign her out and drive her there herself. Understands risks of doing so and asked them to wait a while longer before attempting something drastic. . 09/16 12:24 Order name: CBC with Diff rn 09/16 12:24 Order name: CMP rn 09/16 12:24 Order name: Protime (+inr) rn 09/16 12:24 Order name: Ptt, Activated rn 09/16 13:03 Order name: CBC with Automated Diff; Complete Time: 13:05 EDMS 09/16 13:10 Order name: Protime (+INR); Complete Time: 14:33 EDMS 09/16 13:10 Order name: PTT, Activated Partial Thromb; Complete Time: 14:33 EDMS 09/16 13:19 Order name: Comprehensive Metabolic Panel; Complete Time: 14:33 EDMS 09/16 15:09 Order name: SARS RAPID rs5 09/16 15:50 Order name: SARS-COV-2 Antigen Rapid; Complete Time: 17:53 EDMS 09/16 22:05 Order name: CBC with Diff 09/16 22:05 Order name: Chem 7 kl 09/16 22:53 Order name: CBC with Automated Diff; Complete Time: 23:12 EDMS 09/16 22:56 Order name: Basic Metabolic Panel; Complete Time: 23:12 EDMS 09/16 12:24 Order name: CT Abd/Pelvis - IV Contrast Only rn 09/16 12:24 Order name: IV Saline Lock; Complete Time: 12:51 rn 09/16 12:24 Order name: Labs collected and sent; Complete Time: 12:51 rn 09/16 13:48 Order name: CT; Complete Time: 14:33 EDMS 09/16 18:38 Order name: Cardiac monitoring rn Administered Medications: 15:23 Drug: Clindamycin 600 mg Route: IVPB; Infused Over: 30 mins; Site: left antecubital; ss 22:45 Drug: morphine 2 mg Route: IVP; Infused Over: 4 mins; Site: left antecubital; kl 22:45 Drug: Zofran (Ondansetron) 4 mg Route: IVP; Site: left antecubital; kl 23:28 Follow up: Response: No adverse reaction ll3 23:28 Follow up: Response: No adverse reaction ll3 22:45 Drug: NS 0.9% 1000 ml Route: IV; Rate: 100 ml/hr; Site: left antecubital; kl 09/17 00:11 Drug: fentaNYL (PF) 50 mcg Route: IVP; Site: left antecubital; ll3 00:11 Drug: Zofran (Ondansetron) 4 mg Route: IVP; Site: left antecubital; ll3 Disposition Summary: 09/16/22 14:43 Transfer Ordered Transfer Location: Other Acute Care Facility rn Reason: Higher level of care rn Condition: Stable rn Problem: new rn Symptoms: have improved rn Accepting Physician: Dr. Khanna(09/17/22 00:20) ll3 Diagnosis - GI Bleed/ Gastrointestinal hemorrhage, unspecified rn - Postprocedural hematoma of a digestive system organ or structure following a rn unit manager system procedure - Left sided colitis with rectal bleeding rn Forms: - Medication Reconciliation Form rn - SBAR form rn Signatures: Dispatcher [employer] Juana Kenny, RN Sharad Navarro MD MD cha Nieto, Roman, MD MD rn Smirch, Shelby RN Whit Clancy RN RN jl7 Natalia Burns RN RN ll3 Corrections: (The following items were deleted from the chart) 09/16 12:15 12:14 PMHx: Hypothyroidism; jl7 jl7 09/17 00:20 09/16 14:43 Dr. Khanna rn ll3
--- NOTE | 2022-09-16 14:44 | ER ---
Nurse's Notes [facility] Name: Marcelina Kinney Age: 76 yrs Sex: Female : 1945 Arrival Date: 09/16/2022 Time: 11:29 Bed 11 Private MD: John Vasquez Diagnosis: GI Bleed/ Gastrointestinal hemorrhage, unspecified;Postprocedural hematoma of a digestive system organ or structure following a digestive system procedure;Left sided colitis with rectal bleeding Presentation: 09/16 12:12 Chief complaint: Patient states: Rectal bleeding since 1700 yesterday, recent jl7 colorectal resection due to fistula. Coronavirus screen: At this time, the client does not indicate any symptoms associated with coronavirus-19. Ebola Screen: No symptoms or risks identified at this time. Initial Sepsis Screen: Does the patient meet any 2 criteria? No. Patient's initial sepsis screen is negative. Does the patient have a suspected source of infection? No. Patient's initial sepsis screen is negative. Risk Assessment: Do you want to hurt yourself or someone else? Patient reports no desire to harm self or others. Onset of symptoms was September 15, 2022 at 17:00. 12:12 Method Of Arrival: Ambulatory jl7 12:12 Acuity: SHILA 3 jl7 Triage Assessment: 12:14 General: Appears in no apparent distress. uncomfortable, Behavior is calm, cooperative, jl7 appropriate for age. Pain: Complains of pain in abdomen. GI: Reports rectal bleeding. Historical: - Allergies: 12:14 PENICILLINS; jl7 12:14 Ciprofloxacin; jl7 12:14 Clarithromycin; jl7 12:19 flu vaccine; jl7 - PMHx: 12:14 Hypertensive disorder; jl7 12:17 Diabetes mellitus; Renal failure; Chronic obstructive lung disease; Gout; jl7 - PSHx: 12:14 colorectal resection; jl7 - Immunization history:: Client reports receiving the 2nd dose of the Covid vaccine. - Social history:: Smoking status: Patient denies any tobacco usage or history of. - Family history:: not pertinent. - Hospitalizations: : No recent hospitalization is reported. Screenin:52 Abuse screen: Denies threats or abuse. Tuberculosis screening: No symptoms or risk ap3 factors identified. 15:00 [facility] ED Fall Risk Assessment (Adult) History of falling in the last 3 months, ss including since admission No falls in past 3 months (0 pts). Nutritional screening: No deficits noted. Assessment: 12:15 Reassessment: Dr. Pisano in triage assessing pt and discussing POC. jl7 12:52 Cardiovascular: Patient's skin is warm and dry. Respiratory: Airway is patent ap3 Respiratory effort is even, unlabored. 15:00 General: Appears in no apparent distress. Neuro: Level of Consciousness is awake, ss alert. Derm: Skin is intact, is healthy with good turgor, Skin is dry, Skin is pink, warm \T\ dry. 22:46 General: Appears uncomfortable, Behavior is calm, cooperative. Pain: Complains of pain kl in abdomen. Neuro: No deficits noted. Cardiovascular: No deficits noted. Respiratory: No deficits noted. Airway is patent Respiratory effort is even, unlabored. GI: Bowel sounds present X 4 quads. Abd is soft Abdomen is tender to palpation. : No deficits noted. No signs and/or symptoms were reported regarding the genitourinary system. Vital Signs: 12:12 BP 148 / 64; Pulse 95; Resp 15; Temp 97.4; Pulse Ox 97% ; jl7 22:46 BP 144 / 72; Pulse 82; Resp 16; Pulse Ox 99% on R/A; kl 23:27 BP 140 / 68; Pulse 94; Resp 15; Temp 98.8(O); Pulse Ox 94% on R/A; ll3 ED Course: 11:29 Patient arrived in ED. as 11:30 John Vasquez MD is Private Physician. as 11:42 Connor Pisano MD is Attending Physician. rn 12:14 Triage completed. jl7 12:14 Arm band placed on right wrist. jl7 12:51 Salina Rosado, KWABENA is Primary Nurse. ap3 12:51 Inserted saline lock: 20 gauge in left antecubital area, using aseptic technique. Blood ap3 collected. 12:52 ED physician to see patient. ap3 12:52 Patient has correct armband on for positive identification. Adult w/ patient. ap3 14:57 initiated transfer to [facility]. bd 16:01 pt denied due to hospital being on transfer closure,[address]. bd 16:12 spoke with [facility] transfer center, pt will be accepted to [facility], when a be becomes bd avaliable, (it may be a while pt being held in er) per Mustapha. 22:14 contacted [facility] spoke to Annika to get an update on the transfer. mw2 22:16 Attending Physician role handed off by Connor Pisano MD cha 22:16 Sharad Paul MD is Attending Physician. [facility] 22:[address] Paul with the Hospitalist from [facility]. mw2 22:18 administrative approval given by Angel Stapleton/ patient has been accepted to [address] to [address] T/ Dr. Kinney accepted the patient in transfer/report to be called to [phone]. 23:35 Sharad Paul MD is Attending Physician. [facility] Administered Medications: 15:23 Drug: Clindamycin 600 mg Route: IVPB; Infused Over: 30 mins; Site: left antecubital; 22:45 Drug: morphine 2 mg Route: IVP; Infused Over: 4 mins; Site: left antecubital; 22:45 Drug: Zofran (Ondansetron) 4 mg Route: IVP; Site: left antecubital; 23:28 Follow up: Response: No adverse reaction ll3 23:28 Follow up: Response: No adverse reaction 3 22:45 Drug: NS 0.9% 1000 ml Route: IV; Rate: 100 ml/hr; Site: left antecubital; 09/17 00:11 Drug: fentaNYL (PF) 50 mcg Route: IVP; Site: left antecubital; ll3 00:11 Drug: Zofran (Ondansetron) 4 mg Route: IVP; Site: left antecubital; ll3 Medication: 09/16 15:00 VIS not applicable for this client. Outcome: 14:43 ER care complete, transfer ordered by . rn 09/17 00:20 Patient left the ED. ll3 Signatures: Fe Martinez Kimberly, RN RN kl Anderson, Corey, MD MD cha Martinez, Amelia as Nieto, Roman, MD MD rn Smirch, Shelby, RN RN ss Whit Mcdonald RN RN jl7 Salina Rosado RN RN ap3 Albino Coffey 2 Natalia Burns RN RN ll3 Corrections: (The following items were deleted from the chart) 09/16 12:15 12:14 PMHx: Hypothyroidism; jl7 jl7 23:22 22:34 administrative approval given by Annika/ patient has been accepted to [facility] tom Mcknight to [address]/ Dr. Kinney accepted the patient in transfer/report to be called to [phone] [facility]
[2022-09-16] MEDS ORDERED: CLINDAMYCIN 600MG/D5W 50 ML IV ONE (15:12)
[2022-09-16 15:49] LABS: SARS-CoV-2 Antigen Rapid Res Negative (Negative)
[2022-09-16] MEDS ORDERED: ONDANSETRON 4 MG/2 ML VIAL ONE (22:36)
[2022-09-16] MEDS ORDERED: MORPHINE 2 MG/ML SYR ONE (22:36)
[2022-09-16] MEDS ORDERED: NA CHLORIDE 0.9% 1,000 ML ONE (22:36)
[2022-09-16 22:46] LABS: Absolute Lymphocytes (CBC) 1.2 K/uL (0.7-4.9); Hematocrit 26.1 % (36.0-45.0); Lymphocytes % 11.7 % (15.3-44.8); MPV 6.8 fL (7.6-11.3); RBC Red Blood Cell Count 3.03 M/uL (3.86-4.86)
[2022-09-16 22:55] LABS: Potassium 3.7 mmol/L (3.5-5.1)
[2022-09-17] MEDS ORDERED: FENTANYL CITR 100 MCG/2 ML ONE (00:10)
[2022-09-17] MEDS ORDERED: ONDANSETRON 4 MG/2 ML VIAL ONE (00:10)
[2022-09-17 00:27] VITALS: BP 140/68; TEMP 98.8; O2SAT 94
== END 2022-09-17 00:20 ==
LOC: ER 11:27
DX: K92.2 Gastrointestinal hemorrhage, unspecified (principal); K91.870 Postprocedural hematoma of a digestive system organ or structure following a digestive system procedure; K51.511 Left sided colitis with rectal bleeding; E11.22 Type 2 diabetes mellitus with diabetic chronic kidney disease; N18.9 Chronic kidney disease, unspecified; I10 Essential (primary) hypertension; Z20.822 Contact with and (suspected) exposure to COVID-19; Z88.0 Allergy status to penicillin; Z88.1 Allergy status to other antibiotic agents; Z88.3 Allergy status to other anti-infective agents; Z88.7 Allergy status to serum and vaccine
CPT/HCPCS: 85025 ×2; 80048; 36415; 85610; 85730; 80053; 74176; 96375; 96374; 99283; 87811; J3010; J2270; J7030; J2405 ×2

== ENCOUNTER 2024-11-27 07:01 | Inpatient (IN) | payer OTHER ==
[2024-11-27] MEDS ORDERED: FAMOTIDINE 20 MG/2 ML VIAL IV ONE (07:37)
[2024-11-27] MEDS ORDERED: ONDANSETRON 4 MG/2 ML VIAL ONE (07:37)
[2024-11-27] MEDS ORDERED: NA CHLORIDE 0.9% 1,000 ML ONE (07:38)
[2024-11-27 07:55] LABS: Absolute Basophils 0.1 K/uL (0-0.5); Absolute Eosinophils 0.2 K/uL (0-0.5); Absolute Lymphocytes (CBC) 0.8 K/uL (0.7-4.9); Absolute Monocytes 0.7 K/uL (0.1-1.3); Absolute Neutrophil 11.6 K/uL (1.8-8.0); Basophils % 0.5 % (0-1.3); Eosinophils % 1.2 % (0-4.4); Hematocrit 35.3 % (36.0-45.0); Hemoglobin 11.8 g/dL (12.0-15.0); Lymphocytes % 5.8 % (15.3-44.8); MCH 28.9 pg (27.0-35.0); MCHC 33.4 g/dL (32.0-36.0); MCV 86.6 fL (80-100); MPV 7.6 fL (7.6-11.3); Monocytes % 5.1 % (3.3-12.3); Neutrophils % 87.4 % (41.7-73.7); Platelets 276 thou/uL (152-406); RBC Red Blood Cell Count 4.08 M/uL (3.86-4.86)
[2024-11-27 08:03] LABS: PT Prothrombin Time 10.9 SECONDS (10-13.0); Protime INR 0.95
--- NOTE | 2024-11-27 08:21 | RAD REPORT ---
EXAMINATION: CT ABDOMEN AND PELVIS WITHOUT CONTRAST CLINICAL INDICATION: Abd pain;Pain TECHNIQUE: CT abdomen and pelvis was performed, without IV contrast, as per department protocol. Axia l, sagittal and coronal reconstructions were obtained. One or more of the following dose reduction techniques were used: Automated exposure control, adjustment of the mA and kV according to the patien t size, and iterative reconstruction. Unless otherwise specified, incidental findings do not require dedicated imaging follow-up. COMPARISON: No prior exam. FINDINGS: The lack of intravenous contrast limits the sensitivity of this exam for evaluation of solid visceral organs, vascular structures, and retroperitoneum. LOWER CHEST: The visualized lung bases are clear. Small hiatal hernia. LIVER:Normal in size and contour. No focal lesion. Cholecystectomy clips. SPLEEN: Normal size. No focal lesion. PANCREAS: No mass, ductal dilation, or song-pancreatic fluid. ADRENALS: Normal; no mass. KIDNEYS AND URETERS: Normal appearance of the right kidney. Highly atrophic left kidney. No hydroneph rosis. URINARY BLADDER: Normal contour. GASTROINTESTINAL TRACT: No evidence of bowel obstruction, significant free fluid, free air or abscess . Postsurgical changes are present about the sigmoid colon. APPENDIX: Appendix not visualized, but no inflammatory changes in region of appendix. LYMPH NODES: No lymphadenopathy. MUSCULOSKELETAL: Mild multilevel spinal degenerative changes. ADDITIONAL FINDINGS: Aortoiliac atherosclerosis. IMPRESSION: No acute or concerning abnormalities in the abdomen or pelvis, with evaluation limited by lack of IV contrast.
[2024-11-27 08:29] LABS: AST/SGOT 24 U/L (15-37); Albumin 3.5 g/dL (3.4-5.0); Albumin/Globulin Ratio 0.8 (1.1-1.8); Alkaline Phosphatase 115 U/L (45-117); Anion Gap 12.5 mEq/L (5.0-15.0); BUN Blood Urea Nitrogen 53 mg/dL (7-18); Bicarbonate 24 mEq/L (21-32); Bilirubin Direct 0.2 mg/dL (0-0.2); Bilirubin Indirect, Calculated 0.4 mg/dL (0.2-0.8); Bilirubin Total 0.6 mg/dL (0.2-1.0); Globulin 4.6 g/dL (2.3-3.5); Glomerular Filtration Rate 15 ml/min (=/>90); Glucose Level 150 mg/dL (74-106); Lipase 86 U/L (13-75); NT PRO-BNP 685 pg/mL (<450); Potassium 3.5 mEq/L (3.5-5.1); Protein, Total 8.1 g/dL (6.4-8.2); Sodium Level 136 mEq/L (136-145); Troponin High Sensitivity 18.1 pg/mL (<58.9)
--- NOTE | 2024-11-27 08:31 | RAD REPORT ---
EXAMINATION: ONE VIEW CHEST XR CLINICAL INDICATION: COUGH TECHNIQUE: Frontal chest projection is submitted. Examination is limited by patient positioning and t echnique. COMPARISON: No prior exam. FINDINGS: Mild interstitial pulmonary edema is seen. The heart is moderately enlarged. No displaced fractures i dentified. Aortic atherosclerosis.
[2024-11-27 08:33] LABS: ALT/SGPT < 14 U/L (13-56)
[2024-11-27 08:55] LABS: Specific Gravity 1.014 (1.005-1.030); Sqamous Epithelial <5 /HPF (None Seen); Urine Bacteria <20 /HPF (<20); Urine Bilirubin NEGATIVE (Negative); Urine Blood Trace (Negative); Urine Clarity Extremely Turbid (Clear); Urine Color Light-Orange (Yellow); Urine Culture Reflex Order REFLEXED; Urine Glucose NEGATIVE (Negative); Urine Ketones NEGATIVE (Negative); Urine Microscopic Reflex YN ORDER UMIC; Urine Mucus Slight /HPF (None Seen); Urine Nitrite NEGATIVE (Negative); Urine Protein 2+ (Negative); Urine Urobilinogen Normal (Normal); Urine WBC >50 /HPF (<5); Urine WBC Clump Occasional /HPF (None Seen); Urine pH 5.5 (5.0-7.0)
[2024-11-27] MEDS ORDERED: Meropenem 1000 MG/VIAL IV ONE (09:27)
[2024-11-27] MEDS ORDERED: NA CHLORIDE 0.9% 100 ML ONE (09:27)
--- NOTE | 2024-11-27 09:27 | EDPHYS ---
Physician Documentation [facility] Name: Marcelina Kinney Age: 79 yrs Sex: Female : 1945 Arrival Date: 11/27/2024 Time: 07:01 Bed 8 Private MD: JEFFERSON Physician Sharad Paul HPI: 11/27 08:19 This 79 yrs old Female presents to ER via Ambulatory with complaints of lan Nausea/Vomiting. 08:19 The patient presents to the emergency department with nausea, vomiting, that is lan intermittent. Onset: The symptoms/episode began/occurred this morning. Possible causes: bad food exposure. The symptoms are aggravated by nothing. The symptoms are alleviated by nothing. Associated signs and symptoms: The patient has no apparent associated signs or symptoms. Severity of symptoms: At their worst the symptoms were moderate in the emergency department the symptoms are unchanged. The patient has not experienced similar symptoms in the past. Historical: - Allergies: 07:15 Ciprofloxacin; ss 07:15 Clarithromycin; ss 07:15 FLU VACCINE; ss 07:15 PENICILLINS; ss - PMHx: 07:15 Chronic obstructive lung disease; diabetes mellitus; Gout; Hypertensive disorder; RENAL ss FAILURE; - PSHx: 07:15 colorectal resection; ss 07:15 Hysterectomy; Cholecystectomy; ss - Immunization history:: Client reports having NOT received the Covid vaccine. - Infectious Disease History:: Denies. - Social history:: Smoking status: Patient denies any tobacco usage or history of. ROS: 08:20 Constitutional: Negative for fever, chills, and weight loss, Eyes: Negative for injury, lan pain, redness, and discharge, ENT: Negative for injury, pain, and discharge, Neck: Negative for injury, pain, and swelling, Cardiovascular: Negative for chest pain, palpitations, and edema, Respiratory: Negative for shortness of breath, cough, wheezing, and pleuritic chest pain, Back: Negative for injury and pain, : Negative for injury, bleeding, discharge, and swelling, MS/Extremity: Negative for injury and deformity, Skin: Negative for injury, rash, and discoloration, Neuro: Negative for headache, weakness, numbness, tingling, and seizure, 08:20 Abdomen/GI: Positive for abdominal pain, nausea and vomiting, diarrhea, Exam: 08:20 Constitutional: This is a well developed, well nourished patient who is awake, alert, lan and in no acute distress. Head/Face: Normocephalic, atraumatic. Eyes: Pupils equal round and reactive to light, extra-ocular motions intact. Lids and lashes normal. Conjunctiva and sclera are non-icteric and not injected. Cornea within normal limits. Periorbital areas with no swelling, redness, or edema. ENT: Nares patent. No nasal discharge, no septal abnormalities noted. Tympanic membranes are normal and external auditory canals are clear. Oropharynx with no redness, swelling, or masses, exudates, or evidence of obstruction, uvula midline. Mucous membranes moist. Neck: Trachea midline, no thyromegaly or masses palpated, and no cervical lymphadenopathy. Supple, full range of motion without nuchal rigidity, or vertebral point tenderness. No Meningismus. Chest/axilla: Normal chest wall appearance and motion. Nontender with no deformity. No lesions are appreciated. Cardiovascular: Regular rate and rhythm with a normal S1 and S2. No gallops, murmurs, or rubs. Normal PMI, no JVD. No pulse deficits. Respiratory: Lungs have equal breath sounds bilaterally, clear to auscultation and percussion. No rales, rhonchi or wheezes noted. No increased work of breathing, no retractions or nasal flaring. Abdomen/GI: Soft, non-tender, with normal bowel sounds. No distension or tympany. No guarding or rebound. No evidence of tenderness throughout. Back: No spinal tenderness. No costovertebral tenderness. Full range of motion. Skin: Warm, dry with normal turgor. Normal color with no rashes, no lesions, and no evidence of cellulitis. MS/ Extremity: Pulses equal, no cyanosis. Neurovascular intact. Full, normal range of motion., bilateral aka Neuro: Awake and alert, GCS 15, oriented to person, place, time, and situation. Cranial nerves II-XII grossly intact. Motor strength 5/5 in all extremities. Sensory grossly intact. Cerebellar exam normal. Normal gait. Psych: Awake, alert, with orientation to person, place and time. Behavior, mood, and affect are within normal limits. 08:20 ECG was reviewed by the Attending Physician. Vital Signs: 07:13 BP 153 / 65; Pulse 87; Resp 17; Temp 97.6(O); Pulse Ox 97% on R/A; Weight 82.1 kg; ss Height 5 ft. 7 in. ; Pain 0/10; 08:46 BP 139 / 50; Pulse 77; Resp 15; Pulse Ox 99% on R/A; ss 09:45 BP 131 / 50; Pulse 76; Resp 16 S; Pulse Ox 95% on R/A; aa5 10:30 BP 131 / 53; Pulse 75; Resp 16 S; Pulse Ox 98% on R/A; aa5 11:30 BP 131 / 53; Pulse 70; Resp 18 S; Temp 98(TE); Pulse Ox 99% on R/A; aa5 07:13 Body Mass Index 28.35 (82.10 kg, 170.18 cm) ss 07:13 Pain Scale: Adult ss MDM: 07:09 Medical Screening Exam initiated lan 08:22 Differential diagnosis: Nonspecific abd pain, gastritis, cholecystitis, pancreatitis, lan appendicitis, diverticulitis, viral gastroenteritis, gastroenteritis. Data reviewed: vital signs, nurses notes, EMS record, lab test result(s), EKG, radiologic studies, CT scan, plain films. Consideration of Admission/Observation Escalation of care including admission/observation considered. I considered the following discharge prescriptions or medication management in the emergency department Medications were administered in the Emergency Department. See MAR. Independent interpretation of the following test(s) in the Emergency Department EKG: See my EKG interpretation above. Test considered but Not performed: Ultrasound no renal usg. Historians other than the Patient: Daughter/Son: daughter well informed. Care significantly affected by the following chronic conditions: Diabetes, Hypertension, Chronic Obstructive Pulmonary Disease, Obesity, Chronic Kidney Disease. Counseling: I had a detailed discussion with the patient and/or guardian regarding the historical points, exam findings, and any diagnostic results supporting the discharge/admit diagnosis, lab results, radiology results. 11/27 07:14 Order name: Basic Metabolic Panel; Complete Time: : [facility] 11/27 07:14 Order name: CBC with Diff; Complete Time: : lan 11/27 07:14 Order name: LFT's; Complete Time: 09:21 11/27 07:14 Order name: Magnesium; Complete Time: :11/27 07:14 Order name: NT PRO-BNP; Complete Time: :11/27 07:14 Order name: PT-INR; Complete Time: 09:21 [facility] 11/27 07:14 Order name: Troponin HS; Complete Time: 09:21 [facility] 11/27 07:14 Order name: Lipase; Complete Time: 09:21 [facility] 11/27 07:14 Order name: Urinalysis w/ reflexes; Complete Time: 09:21 [facility] 11/27 09:03 Order name: Urine Culture [facility] 11/27 12:44 Order name: Glucose, Ancillary Testing [facility] 11/27 17:06 Order name: Glucose, Ancillary Testing [facility] 11/27 07:14 Order name: XRAY Chest (1 view); Complete Time: 09:21 [facility] 11/27 07:14 Order name: CT Abd/Pelvis - Without Contrast; Complete Time: : [facility] 11/27 07:14 Order name: Cardiac monitoring; Complete Time: 07:36 [facility] 11/27 07:14 Order name: EKG - Nurse/Tech; Complete Time: 07:36 [facility] 11/27 07:14 Order name: IV Saline Lock; Complete Time: 07:36 [facility] 11/27 07:14 Order name: Labs collected and sent; Complete Time: 07:36 [facility] 11/27 07:14 Order name: O2 Per Protocol; Complete Time: 07:36 [facility] 11/27 07:14 Order name: O2 Sat Monitoring; Complete Time: 07:36 [facility] 11/27 08:33 Order name: Straight Cath - Urine: VO received at 0815; Complete Time: 08:33 aa5 EC:20 Rate is 79 beats/min. Rhythm is regular. QRS [place] is Normal. SD interval is normal. QRS lan interval is normal. QT interval is normal. No Q waves. T waves are Normal. No ST changes noted. Clinical impression: NSR w/ Non-specific ST/T Changes, LVH, and No evidence of ischemia. Interpreted by me. Reviewed by me. Administered Medications: 07:53 Drug: Famotidine IVP 20 mg IVP once; dilute with 10 mL 0.9% NaCl; give over 2 minutes aa5 Route: IVP; Site: right antecubital; 08:25 Follow up: Response: No adverse reaction aa5 07:53 Drug: NS 0.9% IV 1000 ml IV at 1 bolus Per protocol; to be given as a bolus over 60 aa5 minutes Route: IV; Rate: 1 bolus; Site: right antecubital; 08:53 Follow up: IV Status: Completed infusion; IV Intake: 1000ml aa5 07:54 Drug: Ondansetron IVP 8 mg IVP once; over 2 minutes Route: IVP; Site: right antecubital;aa5 08:25 Follow up: Response: No adverse reaction; Nausea is decreased aa5 09:32 Drug: Meropenem IV 1 grams IV at per protocol once; (mix in NS 100 mL) Route: IV; Rate: aa5 per protocol; Site: right antecubital; 10:03 Follow up: Response: No adverse reaction; IV Status: Completed infusion ph Disposition Summary: 11/27/24 09:26 Hospitalization Ordered Notes: Hospitalization Status: Inpatient Admission lan Provider: Leno Pisano cha Condition: Stable lan Problem: new lan Symptoms: have improved lan Bed/Room Type: Standard lan Location: Telemetry/MedSurg (Inpatient)(11/27/24 19:45) rv1 Room Assignment: 208(11/27/24 19:45) rv1 Diagnosis - Vomiting lan - Dehydration lan - Combined systolic (congestive) and diastolic (congestive) heart failure lan - UTI/ Urinary tract infection, site not specified - hx of ESBL lan - Other acute kidney failure - Chronic lan Forms: - Medication Reconciliation Form lan - SBAR form lan - Leadership Thank You Letter lan Signatures: Dispatcher [employer] Sharad Mercado MD MD cha Calderon, Audri, RN RN aa5 Mely Parish RN RN Shelby Bonilla rv1 Juana Wadsworth RN ph Corrections: (The following items were deleted from the chart) 07:15 07:14 BASIC METABOLIC PANEL+C.LAB.BRZ ordered. EDMS EDMS 07:15 07:14 CBC+H.LAB.BRZ ordered. EDMS EDMS 07:15 07:14 HEPATIC FUNCTION+C.LAB.BRZ ordered. EDMS EDMS 07:15 07:14 MAGNESIUM+C.LAB.BRZ ordered. EDMS EDMS 07:15 07:14 PROBNP+C.LAB.BRZ ordered. EDMS EDMS 07:15 07:14 PROTIME (+INR)+COAG.LAB.BRZ ordered. EDMS EDMS 07:15 07:14 Troponin High Sensitivity+C.LAB.BRZ ordered. EDMS EDMS 07:15 07:14 LIPASE+C.LAB.BRZ ordered. EDMS EDMS 07:15 07:14 Urinalysis+U.LAB.BRZ ordered. EDMS EDMS 07:15 07:15 Chest Single View+RAD.RAD.BRZ ordered. EDMS EDMS 07:15 07:15 Abdomen Pelvis Wo Con+CT.RAD.BRZ ordered. EDMS EDMS 15:53 09:26 Telemetry/MedSurg (Inpatient) lan ss 15:53 09:26 lan ss 19:45 15:53 BR ER HOLD ss rv1 19:45 15:53 ERHOLD- ss rv1
--- NOTE | 2024-11-27 09:27 | ER ---
Nurse's Notes [facility] Name: Marcelina Kinney Age: 79 yrs Sex: Female : 1945 Arrival Date: 11/27/2024 Time: 07:01 Bed 8 Private MD: Diagnosis: Vomiting;Dehydration;Combined systolic (congestive) and diastolic (congestive) heart failure;UTI/ Urinary tract infection, site not specified-hx of ESBL;Other acute kidney failure-Chronic Presentation: 11/27 07:13 Chief complaint: Patient states: N/V/D that began this morning. Coronavirus screen: ss Client denies travel out of the [place] in the last 14 days. Ebola Screen: Patient denies exposure to infectious person. Patient denies travel to an Ebola-affected area in the 21 days before illness onset. Initial Sepsis Screen: Does the patient meet any 2 criteria? No. Patient's initial sepsis screen is negative. Does the patient have a suspected source of infection? No. Patient's initial sepsis screen is negative. Risk Assessment: Do you want to hurt yourself or someone else? Patient reports no desire to harm self or others. Onset of symptoms was November 27, 2024. 07:13 Method Of Arrival: Ambulatory ss 07:13 Acuity: SHILA 3 ss Historical: - Allergies: 07:15 Ciprofloxacin; ss 07:15 Clarithromycin; ss 07:15 FLU VACCINE; ss 07:15 PENICILLINS; ss - PMHx: 07:15 Chronic obstructive lung disease; diabetes mellitus; Gout; Hypertensive disorder; RENAL ss FAILURE; - PSHx: 07:15 colorectal resection; ss 07:15 Hysterectomy; Cholecystectomy; ss - Immunization history:: Client reports having NOT received the Covid vaccine. - Infectious Disease History:: Denies. - Social history:: Smoking status: Patient denies any tobacco usage or history of. Screenin:20 [facility] ED Fall Risk Assessment (Adult) History of falling in the last 3 months, aa5 including since admission No falls in past 3 months (0 pts) Confusion or Disorientation No (0 pts) Intoxicated or Sedated No (0 pts) Impaired Gait No (0 pts) Mobility Assist Device Used No (0 pt) Altered Elimination No (0 pt) Score/Fall Risk Level 0 - 2 = Low Risk Oriented to surroundings, Maintained a safe environment, Educated pt \T\ family on fall prevention, incl call for assistance when getting out of bed, Assessed \T\ reinforced patient's understanding of fall precautions. Abuse screen: Denies threats or abuse. Nutritional screening: No deficits noted. Tuberculosis screening: No symptoms or risk factors identified. Assessment: 07:20 General: Appears uncomfortable, Behavior is calm, cooperative. Pain: Denies pain. aa5 Neuro: Level of Consciousness is awake, alert, obeys commands, Oriented to person, place, time, situation, Appropriate for age. Cardiovascular: Heart tones S1 S2 present Rhythm is regular. Respiratory: Airway is patent Respiratory effort is even, unlabored, Respiratory pattern is regular, symmetrical. GI: Abdomen is round non-distended, Bowel sounds present X 4 quads. Abd is soft and non tender X 4 quads. Reports diarrhea, nausea, vomiting, since 0400 today. : No signs and/or symptoms were reported regarding the genitourinary system. EENT: No signs and/or symptoms were reported regarding the EENT system. Derm: Skin is pink, warm \T\ dry. Musculoskeletal: Range of motion: intact in all extremities. 08:20 Reassessment: Patient is alert, oriented x 3, equal unlabored respirations, skin aa5 warm/dry/pink. Patient states feeling better. Reports nausea has improved. . 09:32 Reassessment: Patient is alert, oriented x 3, equal unlabored respirations, skin aa5 warm/dry/pink. Patient states feeling better. Vital Signs: 07:13 BP 153 / 65; Pulse 87; Resp 17; Temp 97.6(O); Pulse Ox 97% on R/A; Weight 82.1 kg; ss Height 5 ft. 7 in. ; Pain 0/10; 08:46 BP 139 / 50; Pulse 77; Resp 15; Pulse Ox 99% on R/A; ss 09:45 BP 131 / 50; Pulse 76; Resp 16 S; Pulse Ox 95% on R/A; aa5 10:30 BP 131 / 53; Pulse 75; Resp 16 S; Pulse Ox 98% on R/A; aa5 11:30 BP 131 / 53; Pulse 70; Resp 18 S; Temp 98(TE); Pulse Ox 99% on R/A; aa5 07:13 Body Mass Index 28.35 (82.10 kg, 170.18 cm) ss 07:13 Pain Scale: Adult ss ED Course: 07:07 Patient arrived in ED. gm2 07:09 Sharad Paul MD is Attending Physician. lan 07:15 Triage completed. ss 07:15 Arm band placed on right wrist. ss 07:20 Patient has correct armband on for positive identification. Bed in low position. Call aa5 light in reach. Side rails up X2. Adult w/ patient. Client placed on continuous cardiac and pulse oximetry monitoring. NIBP monitoring applied. case monitor on. Pulse ox on. NIBP on. 07:28 Quita Funez, RN is Primary Nurse. aa5 07:30 Initial lab(s) drawn, by mo, sent to lab. Inserted saline lock: 20 gauge in right aa5 antecubital area, using aseptic technique. Blood collected. Flushed with 10 mL NS. 07:42 CT Abd/Pelvis - Without Contrast In Process Unspecified. EDMS 07:51 EKG done, by ED staff, reviewed by Sharad aPul MD. aa5 08:06 XRAY Chest (1 view) In Process Unspecified. EDMS 08:25 Straight cath inserted, using sterile technique, 16 Fr. Specimen obtained. sent to lab aa5 Patient tolerated well. 08:37 No provider procedures requiring assistance completed. aa5 09:24 Leno Pisano MD is Hospitalizing Provider. lan 12:00 Patient admitted, IV remains in place. aa5 20:04 Primary Nurse role handed off by Quita Funez, RN rv1 Administered Medications: 07:53 Drug: Famotidine IVP 20 mg IVP once; dilute with 10 mL 0.9% NaCl; give over 2 minutes aa5 Route: IVP; Site: right antecubital; 08:25 Follow up: Response: No adverse reaction aa5 07:53 Drug: NS 0.9% IV 1000 ml IV at 1 bolus Per protocol; to be given as a bolus over 60 aa5 minutes Route: IV; Rate: 1 bolus; Site: right antecubital; 08:53 Follow up: IV Status: Completed infusion; IV Intake: 1000ml aa5 07:54 Drug: Ondansetron IVP 8 mg IVP once; over 2 minutes Route: IVP; Site: right antecubital;aa5 08:25 Follow up: Response: No adverse reaction; Nausea is decreased aa5 09:32 Drug: Meropenem IV 1 grams IV at per protocol once; (mix in NS 100 mL) Route: IV; Rate: aa5 per protocol; Site: right antecubital; 10:03 Follow up: Response: No adverse reaction; IV Status: Completed infusion ph Medication: 08:35 VIS not applicable for this client. aa5 Intake: 08:53 IV: 1000ml; Total: 1000ml. aa5 Outcome: 09:26 Decision to Hospitalize by Provider. [facility] 12:00 Admitted to ER Hold. Please see [facility] for further documentation. aa5 12:00 Condition: stable aa5 12:00 Instructed on the need for admit, Demonstrated understanding of instructions, 20:22 Patient left the ED. bm8 Signatures: Dispatcher [employer] EDSharad Mistry MD MD cha Calderon, Audri, RN RN aa5 Mely Parish, RN RN Juana Beebe RN RN Shelby Bonilla rv1 Josselin Ashford gm2 Sergey Strickland, RN RN bm8 Corrections: (The following items were deleted from the chart) 08:07 07:44 Reassessment: Report given to [facility] Cecelia, spoke to Nurse Shalom. . aa5 aa5
--- NOTE | 2024-11-27 10:42 | P.HP ---
Certification for Inpatient Patient admitted to: Inpatient <Deepti Delgado - Last Filed: 11/27/24 17:57> Patient History Date of Service: 11/27/24 Reason for admission: Nausea vomit History of Present Illness: 79-year-old female with a past medical history of COPD, diabetes, gout, hypertension, CKD, ESBL of the urine, presents to the emergency room with nausea vomiting. She reports recently completing IV antibiotics and her appearance 10 days for ESBL of the urine. Family at bedside is primary historian, she reported symptoms started this morning around 4 AM, she denies abdominal pain, chest pain, shortness of breath, laboratory reveals worsening kidney function, BUN 53, creatinine 2.99, GFR 15, glucose 150, patient follows with nephrology. Plan to admit for acute cystitis, intractable nausea vomiting, with nephrology to consult <Deepti Delgado - Last Filed: 11/27/24 17:57> Date of Service: 11/27/24 <Rajeev Worthington - Last Filed: 11/27/24 23:26> Allergies ciprofloxacin Allergy (Verified 11/03/24 13:39) Itching clarithromycin Allergy (Verified 11/03/24 13:39) Unknown influenza virus vaccine ts [id number] (36 mos,up) [From Fluarix] Allergy (Verified 11/03/24 13:39) Anaphylaxis Penicillins Allergy (Verified 11/03/24 13:39) Hives/Rash Home Medications: Amlodipine Besylate 10 mg PO BEDTIME 05/12/22 Atorvastatin Calcium [Lipitor] 20 mg PO BEDTIME 05/12/22 Famotidine [Pepcid] 20 mg PO BID 05/12/22 Gabapentin [Neurontin] 300 mg PO BEDTIME 05/12/22 Meclizine HCl 25 mg PO BIDP PRN 05/12/22 Picher-3 Fatty Acids [Picher-3] 1 cap PO DAILY 05/12/22 Vitamin E (Dl,Tocopheryl Acet) [Vitamin E] 180 mg PO DAILY 05/12/22 Fluticasone/Salmeterol [Advair Hfa 45-21 Mcg Inhaler] 2 puff IH BID 11/27/24 Furosemide 40 mg PO DAILY 11/27/24 Guaifenesin [Mucinex] 600 mg PO DAILYPRN PRN 11/27/24 Hydralazine HCl 75 mg PO BID 11/27/24 Ipratropium/Albuterol Sulfate [Iprat-Albut 0.5-3(2.5) mg/3 ml] 3 ml IH DAILY Isosorbide Mononitrate [Isosorbide Mononitrate ER] 30 mg PO DAILY 11/27/24 Potassium Chloride 10 meq PO DAILY 11/27/24 Sitagliptin Phosphate [Januvia] 25 mg PO DAILY 11/27/24 Review of Systems 10-point ROS is otherwise unremarkable <Deepti Delgado - Last Filed: 11/27/24 17:57> Physical Examination - Physical Exam General: Alert, In no apparent distress, Oriented x3 HEENT: Atraumatic, Normocephalic Neck: Supple, 2+ carotid pulse no bruit Respiratory: Clear to auscultation bilaterally, Normal air movement Cardiovascular: No edema, Normal pulses, Regular rate/rhythm Capillary refill: <2 Seconds Gastrointestinal: Normal bowel sounds, Soft and benign Musculoskeletal: No swelling, No contractures Integumentary: No breakdown, No significant lesion Neurological: Normal speech, Normal strength at 5/5 x4 extr - Studies Laboratory Data (last 24 hrs) 11/27/24 11/27/24 11/27/24 07:34 07:34 07:34 WBC 13.20 H Hgb 11.8 L Hct 35.3 L Plt Count 276 PT 10.9 INR 0.95 Sodium 136 Potassium 3.5 BUN 53 H Creatinine 2.99 H Glucose 150 H Magnesium 2.0 Total Bilirubin 0.6 AST 24 ALT < 14 Alkaline Phosphatase 115 Lipase 86 H <Deepti Delgado - Last Filed: 11/27/24 17:57> - Studies Laboratory Data (last 24 hrs) 11/27/24 11/27/24 11/27/24 07:34 07:34 07:34 WBC 13.20 H Hgb 11.8 L Hct 35.3 L Plt Count 276 PT 10.9 INR 0.95 Sodium 136 Potassium 3.5 BUN 53 H Creatinine 2.99 H Glucose 150 H Magnesium 2.0 Total Bilirubin 0.6 AST 24 ALT < 14 Alkaline Phosphatase 115 Lipase 86 H <Rajeev Worthington - Last Filed: 11/27/24 23:26> Assessment and Plan - Problems (Diagnosis) (1) Acute renal failure Current Visit: Yes Status: Acute Qualifiers: Acute renal failure type: unspecified Qualified Code(s): N17.9 - Acute kidney failure, unspecified (2) Uremia Current Visit: Yes Status: Acute (3) History of ESBL E. coli infection Current Visit: Yes Status: Acute (4) Intractable nausea Current Visit: Yes Status: Acute (5) Diabetes mellitus Current Visit: Yes Status: Chronic Qualifiers: Diabetes mellitus type: type 2 (6) COPD (chronic obstructive pulmonary disease) Current Visit: Yes Status: Chronic - Plan -Nephrology to consult -Gentle IV fluids -IV antibiotics, meropenem -Liquid diet due to nausea vomiting advance as tolerated -Sliding scale insulin -Hypoglycemia protocol -Urine cultures -As needed nebs -Blood glucose monitor -Sliding scale -O2 2 L -Full code -DVT heparin Discharge Plan: Home - Advance Directives Does patient have a Living Will: No Does patient have a Durable POA for Healthcare: No - Code Status/Comfort Care Code Status: Full Code Critical Care: No Time Spent Managing Pts Care (In Minutes): 55 <Deepti Delgado - Last Filed: 11/27/24 17:57> Physician Review: Patient Assessed, Agree with Above Assessment and Plan <Rajeev Worthington - Last Filed: 11/27/24 23:26>
[2024-11-27] MEDS: INSULIN REGULAR (HUMAN) 100 UNIT/ML SQ SCH (11:30)
[2024-11-27] MEDS ORDERED: GLUCAGON 1 MG/VIAL IM PRN (11:55)
[2024-11-27] MEDS ORDERED: D10W 125 ML IV PRN (11:55)
[2024-11-27] MEDS ORDERED: Meropenem 1,000 MG in NA CHLORIDE 0.9% 100 ML IV SCH ×2 (12:00→21:00)
[2024-11-27 17:02] VITALS: BMI 28.3
[2024-11-27] MEDS ORDERED: IPRATROPIUM BROM 0.5MG/2.5ML NEB PRN (17:54)
[2024-11-27] MEDS ORDERED: ALBUTEROL 2.5 MG/3 ML NEB SOL NEB PRN (17:54)
[2024-11-27] MEDS: ASPIRIN 325 MG TAB PO SCH (21:15)
[2024-11-27] MEDS: ATORVASTATIN 10 MG TAB PO SCH (21:15)
[2024-11-27] MEDS: HYDRALAZINE HCL 25 MG TABLET PO SCH (21:15)
[2024-11-27] MEDS: Meropenem 500 MG in NA CHLORIDE 0.9% 100 ML IV SCH (21:16)
--- NOTE | 2024-11-28 07:30 | P.PN ---
Subjective Date of Service: 11/28/24 Chief Complaint: Nausea vomit nausea and vomiting improved with as needed antiemetic Review of Systems 10-point ROS is otherwise unremarkable Physical Examination - Vital Signs Temperature: 97.7 F Blood Pressure: 136/63 Pulse: 62 Respirations: 16 Pulse Ox (%): 95 - Physical Exam General: Alert, In no apparent distress, Oriented x3, Other (Afebrile) HEENT: Atraumatic, Normocephalic Neck: Supple, 2+ carotid pulse no bruit Respiratory: Clear to auscultation bilaterally, Normal air movement Cardiovascular: No edema, Normal pulses Capillary refill: <2 Seconds Gastrointestinal: Normal bowel sounds Musculoskeletal: No clubbing, No swelling Integumentary: No breakdown, No significant lesion Neurological: Normal speech, Normal strength at 5/5 x4 extr, Normal tone - Studies Laboratory Data (last 24 hrs) 11/27/24 11/27/24 11/27/24 07:34 07:34 07:34 WBC 13.20 H Hgb 11.8 L Hct 35.3 L Plt Count 276 PT 10.9 INR 0.95 Sodium 136 Potassium 3.5 BUN 53 H Creatinine 2.99 H Glucose 150 H Magnesium 2.0 Total Bilirubin 0.6 AST 24 ALT < 14 Alkaline Phosphatase 115 Lipase 86 H Assessment And Plan - Current Problems (Diagnosis) (1) Acute renal failure Current Visit: Yes Status: Acute Qualifiers: Acute renal failure type: unspecified Qualified Code(s): N17.9 - Acute kidney failure, unspecified (2) Uremia Current Visit: Yes Status: Acute (3) History of ESBL E. coli infection Current Visit: Yes Status: Acute (4) Intractable nausea Current Visit: Yes Status: Acute (5) Diabetes mellitus Current Visit: Yes Status: Chronic Qualifiers: Diabetes mellitus type: type 2 Diabetes mellitus complication status: with kidney complications (6) COPD (chronic obstructive pulmonary disease) Current Visit: Yes Status: Chronic - Plan -Nephrology to consult Infectious disease consult for complicated UTI UA 4+ gram-negative rods on meropenem Pending renal ultrasound -Gentle IV fluids -Liquid diet due to nausea vomiting advance as tolerated -Sliding scale insulin -Hypoglycemia protocol -Urine cultures -As needed nebs -Blood glucose monitor -Sliding scale -O2 2 L -Full code -DVT heparin Discharge Plan: Home - Code Status/Comfort Care Code Status: Full Code Physician Review: Patient Assessed, Agree with Above Assessment and Plan Critical Care: No Time Spent Managing PTS Care (In Minutes): 35
[2024-11-28 08:51] LABS: Absolute Basophils 0.1 K/uL (0-0.5); Absolute Eosinophils 0.3 K/uL (0-0.5); Absolute Lymphocytes (CBC) 1.3 K/uL (0.7-4.9); Absolute Monocytes 0.5 K/uL (0.1-1.3); Absolute Neutrophil 2.7 K/uL (1.8-8.0); Basophils % 1.5 % (0-1.3); Eosinophils % 6.3 % (0-4.4); Hematocrit 32.4 % (36.0-45.0); Lymphocytes % 26.8 % (15.3-44.8); MCH 29.7 pg (27.0-35.0); MCV 87.4 fL (80-100); MPV 7.3 fL (7.6-11.3); Monocytes % 10.1 % (3.3-12.3); Neutrophils % 55.3 % (41.7-73.7); Platelets 222 thou/uL (152-406); RBC Red Blood Cell Count 3.71 M/uL (3.86-4.86); Red Cell Distribution Width 15.1 % (12.1-15.2)
[2024-11-28] MEDS ORDERED: Meropenem 500 MG in NA CHLORIDE 0.9% 100 ML IV SCH (09:00)
[2024-11-28 09:12] LABS: Albumin 2.9 g/dL (3.4-5.0); Anion Gap 8.8 mEq/L (5.0-15.0); Magnesium 2.1 mg/dL (1.6-2.4); Phosphorus 2.8 mg/dL (2.5-4.9); Potassium 3.8 mEq/L (3.5-5.1)
--- NOTE | 2024-11-28 12:10 | EKG ---
Test Date: 2024-11-27 Test Time: 07:51:58 Community Cultural Development Officer: MAYI MEASUREMENT RESULTS: Intervals: Rate: 79 OK: 228 QRSD: 102 QT: 402 QTc: 460 [place]: P: 64 OK: 228 QRS: -29 T: 48 INTERPRETIVE STATEMENTS: Sinus rhythm with 1st degree AV block Minimal voltage criteria for LVH, may be normal variant Possible Anterior infarct, age undetermined Abnormal ECG No previous ECG available for comparison Electronically Signed On 11-28-24 12:07:42 CDT by Shelton Eng
--- NOTE | 2024-11-28 12:48 | P.CNS ---
Date of Consult: 11/28/24 Reason for Consult: HARISH/ CKD Requesting Physician: Gelacio Kinney Chief Complaint: Nausea vomit History of Present Illness: 79-year-old female with a past medical history of COPD, diabetes, gout, hypertension, CKD, ESBL of the urine, presents to the emergency room with nausea vomiting. She reports recently completing IV antibiotics and her appearance 10 days for ESBL of the urine. Family at bedside is primary historian, she repor lion symptoms started this morning around 4 AM, she denies abdominal pain, chest pain, shortness of breath, laboratory reveals worsening kidney function, BUN 53, creatinine 2.99, GFR 15, glucose 150, patient follows with nephrology. Plan to admit for acute cystitis, intractable nausea vomiting, with nephrology to consult [id number] 08:19 This 79 yrs old Female presents to ER via Ambulatory with complaints of lan Nausea/Vomiting. 08:19 The patient presents to the emergency department with nausea, vomiting, that is lan intermittent. Onset: The symptoms/episode began/occurred this morning. Possible causes: bad food exposure. The symptoms are aggravated by nothing. The symptoms are alleviated by nothing. Associated signs and symptoms: The patient has no apparent associated signs or symptoms. Severity of symptoms: At their worst the symptoms were moderate in the emergency department the symptoms are unchanged. The patient has not experienced similar symptoms in the past. Allergies ciprofloxacin Allergy (Verified 11/03/24 13:39) Itching clarithromycin Allergy (Verified 11/03/24 13:39) Unknown influenza virus vaccine ts [id number] (36 mos,up) [From Fluarix] Allergy (Verified 11/03/24 13:39) Anaphylaxis Penicillins Allergy (Verified 11/03/24 13:39) Hives/Rash Home medications list reviewed: Yes Home Medications: Amlodipine Besylate 10 mg PO BEDTIME 05/12/22 Atorvastatin Calcium [Lipitor] 20 mg PO BEDTIME 05/12/22 Famotidine [Pepcid*] 20 mg PO BID 05/12/22 Gabapentin [Neurontin*] 300 mg PO BEDTIME 05/12/22 Meclizine HCl 25 mg PO BIDP PRN 05/12/22 [place]-3 Fatty Acids [[place]-3] 1 cap PO DAILY 05/12/22 Vitamin E (Dl,Tocopheryl Acet) [Vitamin E] 180 mg PO DAILY 05/12/22 Fluticasone/Salmeterol [Advair Hfa 45-21 Mcg Inhaler] 2 puff IH BID 11/27/24 Furosemide 40 mg PO DAILY 11/27/24 Guaifenesin [Mucinex] 600 mg PO DAILYPRN PRN 11/27/24 Hydralazine HCl 75 mg PO BID 11/27/24 Ipratropium/Albuterol Sulfate [Iprat-Albut 0.5-3(2.5) mg/3 ml] 3 ml IH DAILY 11/27/24 Isosorbide Mononitrate [Isosorbide Mononitrate ER] 30 mg PO DAILY 11/27/24 Potassium Chloride 10 meq PO DAILY 11/27/24 Sitagliptin Phosphate [Januvia] 25 mg PO DAILY 11/27/24 Diphenhydramine [Benadryl*] 25 mg PO Q6H PRN 11/28/24 Ondansetron [Zofran] 4 mg PO Q6H PRN 5 Days #15 tab 11/29/24 - Past Medical/Surgical History Diabetic: Yes -: COPD -: DM II -: Gout -: HTN -: CKD IV (Dr. Bell/ [place]) -: Colorectal resection -: Hysterectomy -: Cholecystectomy -: Left FA fistula (has not started dialysis/MD monitoring kidney function) Review of Systems 10-point ROS is otherwise unremarkable General: Weakness Physical Examination Temp Pulse Resp BP Pulse Ox 98.0 F 63 16 167/70 H 94 11/28/24 08:00 11/28/24 08:00 11/28/24 08:00 11/28/24 08:00 11/28/24 08:00 General: In no apparent distress, Oriented x3, Cooperative HEENT: Atraumatic Neck: Supple Respiratory: Clear to auscultation bilaterally, Normal air movement Cardiovascular: No edema, Regular rate/rhythm Gastrointestinal: Soft and benign, Non-distended Musculoskeletal: No clubbing, No contractures Integumentary: No rashes, No cyanosis Neurological: Normal speech Blood work reviewed in the chart. Imagings Data: [id number] EXAMINATION: US RETROPERITONEUM CLINICAL INDICATION: [facility] ckd harish TECHNIQUE: Real-time ultrasonography of the abdomen was performed. COMPARISON: No prior exam. FINDINGS: RIGHT KIDNEY: Right renal length measurement: 13.5 cm. Right upper pole 2.1 cm anechoic cyst. Normal in echogenicity and size. No calculus, solid mass or hydronephrosis. LEFT KIDNEY: Left renal length measurement: 8.1 cm. Interpolar 1.4 cm anechoic cyst. Asymmetrically smaller and showing marked cortical thinning. No calculus, solid mass or hydronephrosis. URINARY BLADDER: Normal. ADDITIONAL FINDINGS: None. IMPRESSION: Atrophic changes of the left kidney. Benign-appearing bilateral renal cortical cysts. EXAMINATION: ONE VIEW CHEST XR CLINICAL INDICATION: COUGH TECHNIQUE: Frontal chest projection is submitted. Examination is limited by patient positioning and technique. COMPARISON: No prior exam. FINDINGS: Mild interstitial pulmonary edema is seen. The heart is moderately enlarged. No displaced fractures identified. Aortic atherosclerosis. EXAMINATION: CT ABDOMEN AND PELVIS WITHOUT CONTRAST CLINICAL INDICATION: Abd pain;Pain TECHNIQUE: CT abdomen and pelvis was performed, without IV contrast, as per department protocol. Axial, sagittal and coronal reconstructions were obtained. One or more of the following dose reduction techniques were used: Automated exposure control, adjustment of the mA and kV according to the patient size, and iterative reconstruction. Unless otherwise specified, incidental findings do not require dedicated imaging follow-up. COMPARISON: No prior exam. FINDINGS: The lack of intravenous contrast limits the sensitivity of this exam for evaluation of solid visceral organs, vascular structures, and retroperitoneum. LOWER CHEST: The visualized lung bases are clear. Small hiatal hernia. LIVER:Normal in size and contour. No focal lesion. Cholecystectomy clips. SPLEEN: Normal size. No focal lesion. PANCREAS: No mass, ductal dilation, or song-pancreatic fluid. ADRENALS: Normal; no mass. KIDNEYS AND URETERS: Normal appearance of the right kidney. Highly atrophic left kidney. No hydronephrosis. URINARY BLADDER: Normal contour. GASTROINTESTINAL TRACT: No evidence of bowel obstruction, significant free fluid, free air or abscess. Postsurgical changes are present about the sigmoid colon. APPENDIX: Appendix not visualized, but no inflammatory changes in region of appendix. LYMPH NODES: No lymphadenopathy. MUSCULOSKELETAL: Mild multilevel spinal degenerative changes. ADDITIONAL FINDINGS: Aortoiliac atherosclerosis. IMPRESSION: No acute or concerning abnormalities in the abdomen or pelvis, with evaluation limited by lack of IV contrast. Conclusions/Impression: CKD IV with Proteinuria -No NSAIDs HTN with CKD -Continue Amlodipine -Continue Hydralazine Hypoalbuminemia -Encourage protein supplementation Anemia in chronic illness -Monitor H&H Acute GNR Cystitis with hematuria -Continue Meropenem Hospitalist and ER notes reviewed Case reviewed with Dr. Kinney Thank you kindly for the consultation
[2024-11-28] MEDS: DIPHENHYDRAMINE 25 MG TAB/CAP PO PRN (13:44)
--- NOTE | 2024-11-28 13:50 | P.PN ---
This is an attestation to [employer]EVEL GAME DESIGNER note. Subjective: No chest pain or shortness of breath. No nausea or vomiting. No abdominal pain. No obvious bleeding. Looks comfortable in the bed. Objective: General appearance: Alert and comfortable CVS: Normal S1 and S2 Lungs: Clear to auscultation bilaterally Abdomen: Soft, bowel sounds present, no tenderness Extremities: No lower extremity edema 79-year-old patient with UTI, urine culture pending, continue IV antibiotics, ID consult requested, WBC improving. CKD, CT abdomen negative, renal ultrasound pending, nephrology is following. Hypertension, continue hydralazine, resume Norvasc, monitor blood pressure closely. Chronic anemia, monitor closely. Discussed with the patient, answered all questions.
[2024-11-28] MEDS: AMLODIPINE 10 MG TAB PO SCH (14:58)
[2024-11-28] MEDS: HYDRALAZINE HCL 20 MG/ML VIAL IV PRN (17:06)
[2024-11-28] MEDS: ISOSORBIDE MONO SR 30 MG TAB PO ONE (19:21)
--- NOTE | 2024-11-28 20:35 | P.CNS ---
Date of Consult: 11/28/24 Reason for admission: Complicated UTT History of Present Illness: 79-year-old female with a past medical history of COPD, diabetes, gout, hypertension, CKD, ESBL of the urine, presents to the emergency room with constant nausea vomiting since thursday (one day ago). Denied fever, abdomen pain or chest pain. She reports recently completing IV antibiotics for 10 days for ESBL of the urine in October. Pt was given meropenem on 11/27/24 and WBC have improved significantly. Allergies ciprofloxacin Allergy (Verified 11/03/24 13:39) Itching clarithromycin Allergy (Verified 11/03/24 13:39) Unknown influenza virus vaccine ts [id number] (36 mos,up) [From Fluarix] Allergy (Verified 11/03/24 13:39) Anaphylaxis Penicillins Allergy (Verified 11/03/24 13:39) Hives/Rash Review of Systems 10-point ROS is otherwise unremarkable Physical Examination - Physical Exam General: Alert, In no apparent distress, Oriented x3 HEENT: Atraumatic, Normocephalic Neck: Supple, 2+ carotid pulse no bruit Respiratory: Clear to auscultation bilaterally Cardiovascular: RRR Capillary refill: <2 Seconds Gastrointestinal: Normal bowel sounds, Soft and ND, NT Musculoskeletal: No swelling, No contractures Integumentary: no skin breakdown Neurological: Normal speech, Normal strength at 5/5 x4 extr Laboratory Data (last 24 hrs) wbc 4.8, hgb 11, plt count 222,BUN 38, Cr 2.43, GFR 20 urine culture 11/27: 4+ GNR CT abdomen and pelvis 11/27/24:No acute or concerning abnormalities in the abdomen or pelvis, with evaluation limited by lack of IV contrast. Assessment and Plan (1) Complicated UTI (2) Acute renal failure (3) Uremia (4) History of ESBL E. coli infection (5) Intractable nausea (6) Diabetes mellitus (7) COPD (chronic obstructive pulmonary disease) Continue meropenem. pending urine culture. Monitor WBC and fever trend thank you for consulting case round and in agreement with Dr Patricia
--- NOTE | 2024-11-28 20:50 | RAD REPORT ---
EXAMINATION: US RETROPERITONEUM CLINICAL INDICATION: [facility] ckd barrett TECHNIQUE: Real-time ultrasonography of the abdomen was performed. COMPARISON: No prior exam. FINDINGS: RIGHT KIDNEY: Right renal length measurement: 13.5 cm. Right upper pole 2.1 cm anechoic cyst. Normal in echogenicity and size. No calculus, solid mass or hydronephrosis. LEFT KIDNEY: Left renal length measurement: 8.1 cm. Interpolar 1.4 cm anechoic cyst. Asymmetrically s maller and showing marked cortical thinning. No calculus, solid mass or hydronephrosis. URINARY BLADDER: Normal. ADDITIONAL FINDINGS: None. IMPRESSION: Atrophic changes of the left kidney. Benign-appearing bilateral renal cortical cysts.
[2024-11-28] MEDS: DULERA 100/5 (MOMETASONE/FORMOTEROL) INHALER IH SCH (21:00)
[2024-11-28 23:18] VITALS: O2SAT 93
[2024-11-29 05:26] LABS: Absolute Basophils 0.1 K/uL (0-0.5); Absolute Eosinophils 0.4 K/uL (0-0.5); Absolute Lymphocytes (CBC) 1.3 K/uL (0.7-4.9); Absolute Monocytes 0.5 K/uL (0.1-1.3); Absolute Neutrophil 3.5 K/uL (1.8-8.0); Basophils % 1.2 % (0-1.3); Eosinophils % 6.3 % (0-4.4); Hemoglobin 10.4 g/dL (12.0-15.0); Lymphocytes % 22.8 % (15.3-44.8); MCH 29.5 pg (27.0-35.0); MCHC 33.7 g/dL (32.0-36.0); MCV 87.5 fL (80-100); MPV 7.4 fL (7.6-11.3); Monocytes % 8.6 % (3.3-12.3); Neutrophils % 61.1 % (41.7-73.7); Platelets 219 thou/uL (152-406); RBC Red Blood Cell Count 3.54 M/uL (3.86-4.86); Red Cell Distribution Width 15.1 % (12.1-15.2)
[2024-11-29 05:38] LABS: Albumin 2.8 g/dL (3.4-5.0); Anion Gap 8.7 mEq/L (5.0-15.0); Magnesium 1.9 mg/dL (1.6-2.4); Phosphorus 2.6 mg/dL (2.5-4.9); Potassium 3.7 mEq/L (3.5-5.1)
--- NOTE | 2024-11-29 06:30 | P.DS ---
Admission Date: 11/27/24 Discharge Date: 11/29/24 Disposition: ROUTINE DISCHARGE Discharge Condition: GOOD Reason for Admission: Nausea vomit - Problems (1) Acute renal failure Current Visit: Yes Status: Acute Qualifiers: Acute renal failure type: unspecified Qualified Code(s): N17.9 - Acute kidney failure, unspecified (2) Uremia Current Visit: Yes Status: Acute (3) History of ESBL E. coli infection Current Visit: Yes Status: Acute (4) Intractable nausea Current Visit: Yes Status: Acute (5) Diabetes mellitus Current Visit: Yes Status: Chronic Qualifiers: Diabetes mellitus type: type 2 Diabetes mellitus complication status: with kidney complications (6) COPD (chronic obstructive pulmonary disease) Current Visit: Yes Status: Chronic Brief History of Present Illness: 79-year-old female with a past medical history of COPD, diabetes, gout, hypertension, CKD, ESBL of the urine, presents to the emergency room with nausea vomiting. She reports recently completing IV antibiotics and her appearance 10 days for ESBL of the urine. Family at bedside is primary historian, she reported symptoms started this morning around 4 AM, she denies abdominal pain, chest pain, shortness of breath, laboratory reveals worsening kidney function, BUN 53, creatinine 2.99, GFR 15, glucose 150, patient follows with nephrology. Plan to admit for acute cystitis, intractable nausea vomiting, with nephrology to consult - Physical Exam General: Alert, In no apparent distress, Oriented x3 HEENT: Atraumatic, Normocephalic Neck: Supple, 2+ carotid pulse no bruit Respiratory: Clear to auscultation bilaterally, Normal air movement Cardiovascular: No edema, Normal pulses, Regular rate/rhythm Capillary refill: <2 Seconds Gastrointestinal: Normal bowel sounds, Soft and benign Musculoskeletal: No swelling, No contractures Integumentary: No breakdown, No significant lesion Neurological: Normal speech, Normal strength at 5/5 x4 extr Hospital Course: 79-year-old female with a past medical history of COPD, diabetes, gout, hypertension, CKD, ESBL of the urine, presents to the emergency room with nausea vomiting. She reports recently completing IV antibiotics and her appearance 10 days for ESBL of the urine. Family at bedside is primary historian, she reported symptoms started this morning around 4 AM, she denies abdominal pain, chest pain, shortness of breath, laboratory reveals worsening kidney function, BUN 53, creatinine 2.99, GFR 15, glucose 150, patient follows with nephrology. Plan to admit for acute cystitis, intractable nausea vomiting, with nephrology to consult treated for acute cystitis, CKD stage IV, improved with IV fluids, IV antibiotics, tolerating diet, stable to discharge home, follow-up with nephrology after discharge, follow-up with PCP after discharge Discharge medication Zofran as needed for nausea vomiting Follow-up with nephrology for renal function monitoring in 1 week, CBC, CMP, UA positive for E. coli treated with meropenem while inpatient history of ESBL Assessment Intractable nausea and vomiting improved with IV fluids, resolved History of ESBL -infectious disease consult, treated with meropenem and pain, resolved acute cystitis-infectious disease consulted, treated with meropenem, resolved Suspected uremia due to intractable nausea vomiting nephrology consulted, clarified with nephrology CKD stage IV CKD stage IV per nephrology, follow-up with nephrology after discharge Diabetes mellitus sliding scale insulin, blood glucose monitoring while inpatient COPD, not in exacerbation Renal ultrasound Atrophic changes of the left kidney. Benign-appearing bilateral renal cortical cysts. UA 4+ gram-negative rods on meropenem, while inpatient, culture positive for E. coli, discharged home back Kidney function, on admission BUN 53, creatinine 2.99, GFR 15, BUN 38 GFR 20, creatinine 2.43, repeat 36, 2.29, GFR 21 Continue home medicines as previously prescribed GOAL: Clear understanding of disease process INSTRUCTIONS: Physician Discharge Instructions: -Follow-up with PCP in 1 to 2 weeks -Please call if any questions regarding hospital stay -Please call nursing station at [phone] if any nursing or medication questions -Return to the emergency room if symptoms worsen Diet: ADA, low sodium Activity: Fall precautions Vital Signs/Physical Exam: Temp Pulse Resp BP Pulse Ox 97.6 F 78 19 138/65 95 11/29/24 04:00 11/29/24 04:00 11/29/24 04:00 11/29/24 04:00 11/29/24 04:00 Laboratory Data at Discharge: WBC 5.80 thou/uL (4.3-10.9) 11/29/24 05:06 Hgb 10.4 g/dL (12.0-15.0) L 11/29/24 05:06 Hct 31.0 % (36.0-45.0) L 11/29/24 05:06 Plt Count 219 thou/uL (152-406) 11/29/24 05:06 PT 10.9 SECONDS (10-13.0) 11/27/24 07:34 INR 0.95 11/27/24 07:34 Sodium 140 mEq/L (136-145) 11/29/24 05:06 Potassium 3.7 mEq/L (3.5-5.1) 11/29/24 05:06 BUN 36 mg/dL (7-18) H 11/29/24 05:06 Creatinine 2.29 mg/dL (0.55-1.02) H 11/29/24 05:06 Glucose 105 mg/dL (74-106) 11/29/24 05:06 Phosphorus 2.6 mg/dL (2.5-4.9) 11/29/24 05:06 Magnesium 1.9 mg/dL (1.6-2.4) 11/29/24 05:06 Total Bilirubin 0.6 mg/dL (0.2-1.0) 11/27/24 07:34 AST 24 U/L (15-37) 11/27/24 07:34 ALT < 14 U/L (13-56) 11/27/24 07:34 Alkaline Phosphatase 115 U/L (45-117) 11/27/24 07:34 Lipase 86 U/L (13-75) H 11/27/24 07:34 Home Medications: Amlodipine Besylate 10 mg PO BEDTIME 05/12/22 Atorvastatin Calcium [Lipitor] 20 mg PO BEDTIME 05/12/22 Famotidine [Pepcid*] 20 mg PO BID 05/12/22 Gabapentin [Neurontin*] 300 mg PO BEDTIME 05/12/22 Meclizine HCl 25 mg PO BIDP PRN 05/12/22 [place]-3 Fatty Acids [[place]-3] 1 cap PO DAILY 05/12/22 Vitamin E (Dl,Tocopheryl Acet) [Vitamin E] 180 mg PO DAILY 05/12/22 Fluticasone/Salmeterol [Advair Hfa 45-21 Mcg Inhaler] 2 puff IH BID 11/27/24 Furosemide 40 mg PO DAILY 11/27/24 Guaifenesin [Mucinex] 600 mg PO DAILYPRN PRN 11/27/24 Hydralazine HCl 75 mg PO BID 11/27/24 Ipratropium/Albuterol Sulfate [Iprat-Albut 0.5-3(2.5) mg/3 ml] 3 ml IH DAILY 11/27/24 Isosorbide Mononitrate [Isosorbide Mononitrate ER] 30 mg PO DAILY 11/27/24 Potassium Chloride 10 meq PO DAILY 11/27/24 Sitagliptin Phosphate [Januvia] 25 mg PO DAILY 11/27/24 Diphenhydramine [Benadryl*] 25 mg PO Q6H PRN 11/28/24 Ondansetron [Zofran] 4 mg PO Q6H PRN 5 Days #15 tab 11/29/24 New Medications: Ondansetron [Zofran] 4 mg PO Q6H PRN 5 Days #15 tab PRN Reason: Nausea / Vomiting Physician Discharge Instructions: 79-year-old female with a past medical history of COPD, diabetes, gout, hypertension, CKD, ESBL of the urine, presents to the emergency room with nausea vomiting. She reports recently completing IV antibiotics and her appearance 10 days for ESBL of the urine. Family at bedside is primary historian, she reported symptoms started this morning around 4 AM, she denies abdominal pain, chest pain, shortness of breath, laboratory reveals worsening kidney function, BUN 53, creatinine 2.99, GFR 15, glucose 150, patient follows with nephrology. Plan to admit for acute cystitis, intractable nausea vomiting, with nephrology to consult treated for acute cystitis, CKD stage IV, improved with IV fluids, IV antibiotics, tolerating diet, stable to discharge home, follow-up with nephrology after discharge, follow-up with PCP after discharge Discharge medication Zofran as needed for nausea vomiting Bactrim 1 p.o. twice daily for 1 p.o. twice daily for 3 days #14 Follow-up with nephrology for renal function monitoring in 1 week, CBC, CMP, Assessment Intractable nausea and vomiting improved with IV fluids, resolved while i npatient History of ESBL -infectious disease consult, treated with meropenem, culture 4+ gram-negative brian acute cystitis-infectious disease consulted, treated with meropenem, clarified with nephrology CKD stage IV Suspected uremia due to intractable nausea vomiting nephrology consulted, per nephrology CKD stage IV CKD stage IV per nephrology Diabetes mellitus sliding scale insulin, blood glucose monitoring while inpatient COPD, not in exacerbation Renal ultrasound Atrophic changes of the left kidney. Benign-appearing bilateral renal cortical cysts. UA 4+ gram-negative rods on meropenem, while inpatient, history of ESBL Kidney function, on admission BUN 53, creatinine 2.99, GFR 15, BUN 38 GFR 20, creatinine 2.43, repeat 36, 2.29, GFR 21 Continue home medicines as previously prescribed GOAL: Clear understanding of disease process INSTRUCTIONS: Physician Discharge Instructions: -Follow-up with nephrology after the -Follow-up with PCP in 1 to 2 weeks -Please call if any questions regarding hospital stay -Please call nursing station at [phone] if any nursing or medication questions -Return to the emergency room if symptoms worsen Diet: ADA, low sodium Activity: Fall precautions Diet: Renal Followup: Dash Funez DO [ACTIVE - CAN ADMIT] - 1-2 Weeks Cy Sanchez MD [Primary Care Provider] - 1-2 Weeks Time spent managing pt's care (in minutes): 45
[2024-11-29] MEDS: HYDRALAZINE HCL 25 MG TABLET PO SCH (09:00)
[2024-11-29] MEDS: POTASSIUM 25 MEQ EFFERV TAB PO ONE (09:13)
--- NOTE | 2024-11-29 12:21 | P.PN ---
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 Subjective: No chest pain or shortness of breath. No nausea or vomiting. No abdominal pain. No obvious bleeding. Looks comfortable in the bed. Objective: General appearance: Alert and comfortable CVS: Normal S1 and S2 Lungs: Clear to auscultation bilaterally Abdomen: Soft, bowel sounds present, no tenderness Extremities: No lower extremity edema 79-year-old patient with UTI, urine culture showed e.coli, ID consult requested, WBC improving, prob home on oral ABX today. HARISH on CKD, CT abdomen negative, renal ultrasound showed a left renal atrophy, creatinine improving, nephrology is following. Hypertension, on hydralazine, and Norvasc, blood pressure high, adjust medications. Chronic anemia, monitor closely. Plan Discussed with the patient, answered all questions. DC home today once cleared by nephrology and infectious disease.
[2024-11-29] MEDS: POTASSIUM CL SA 10 MEQ TAB PO ONE (13:28)
[2024-11-29] MEDS: DIPHENHYDRAMINE 50 MG/ML VIAL IV ONE (13:29)
--- NOTE | 2024-11-29 15:27 | P.PN ---
Date of Service: 11/29/24 Subjective nausea and vomiting improved with as needed antiemetic IV antibiotics for UTI, on meropenem Review of Systems 10-point ROS is otherwise unremarkable Physical Examination - Vital Signs Reviewed - Physical Exam General: Alert, In no apparent distress noted HEENT: Diana, atraumatic Neck: Supple, 2+ carotid pulse no bruit Respiratory: Equal, unlabored Cardiovascular: No edema, Normal pulses Capillary refill: <2 Seconds Gastrointestinal: Normal bowel sounds, nontender Musculoskeletal: No clubbing, generalized weak Integumentary: No breakdown, No significant lesion Neurological: Normal speech, Normal strength at 5/5 x4 extr, Normal tone Assessment And Plan - Current Problems (Diagnosis) (1) Acute renal failure Current Visit: Yes Status: Acute Qualifiers: Acute renal failure type: unspecified Qualified Code(s): N17.9 - Acute kidney failure, unspecified (2) Uremia Current Visit: Yes Status: Acute (3) History of ESBL E. coli infection Current Visit: Yes Status: Acute (4) Intractable nausea Current Visit: Yes Status: Acute (5) Diabetes mellitus Current Visit: Yes Status: Chronic Qualifiers: Diabetes mellitus type: type 2 Diabetes mellitus complication status: with kidney complications (6) COPD (chronic obstructive pulmonary disease) Current Visit: Yes Status: Chronic - Plan -Nephrology to consult Infectious disease consult for complicated UTI UA 4+ gram-negative rods on meropenem Renal ultrasound Atrophic changes of the left kidney. Benign-appearing bilateral renal cortical cysts. UA 4+ gram-negative rods on meropenem, while inpatient, culture positive for E. coli, discharged home back Kidney function, on admission BUN 53, creatinine 2.99, GFR 15, BUN 38 GFR 20, creatinine 2.43, repeat 36, 2.29, GFR 21 -Sliding scale insulin -Hypoglycemia protocol -As needed nebs -Blood glucose monitor -Sliding scale -O2 2 L -Full code -DVT heparin Discharge Plan: Home - Code Status/Comfort Care Code Status: Full Code Physician Review: Patient Assessed, Agree with Above Assessment and Plan Critical Care: No Time Spent Managing PTS Care (In Minutes): 35
[2024-11-29] MEDS: ONDANSETRON 4 MG/2 ML VIAL IV PRN (20:05)
--- NOTE | 2024-11-29 21:03 | RAD REPORT ---
EXAM: AP view(s) of the abdomen Abdomen Single View HISTORY: ausea and vomiting/pain COMPARISON: 11/27/2024 CT FINDINGS: Nonobstructive bowel gas pattern.. Moderate stool in the ascending colon. No suspicious calcifications are seen. Pelvic phleboliths noted. No acute osseous abnormality. Other: Surgical clips in right upper quadrant. IMPRESSION: Nonobstructive bowel gas pattern.
--- NOTE | 2024-11-29 21:53 | P.PN ---
Date of Service: 11/29/24 Vital Signs Temp Pulse Resp BP Pulse Ox 97.2 F 87 19 151/60 H 93 11/29/24 20:00 11/29/24 20:00 11/29/24 20:00 11/29/24 21:00 11/29/24 20:00 Medications Albuterol Sulfate (Albuterol 2.5 Mg/3 Ml Neb Elsa) 2.5 mg NEB [id number] PRN PRN Reason: SHORTNESS OF BREATH Amlodipine Besylate (Amlodipine 10 Mg Tab) 10 mg PO DAILY [facility] Last Admin: 11/29/24 09:12 Dose: 10 mg Aspirin (Aspirin 325 Mg Tab) 325 mg PO BEDTIME [facility] Last Admin: 11/29/24 20:07 Dose: 325 mg Atorvastatin Calcium (Atorvastatin 10 Mg Tab) 10 mg PO BEDTIME [facility] Last Admin: 11/29/24 20:06 Dose: 10 mg Diphenhydramine HCl (Diphenhydramine 25 Mg Tab/Cap) 25 mg PO Q6H PRN PRN Reason: ITCHING Last Admin: 11/29/24 12:05 Dose: 25 mg Glucagon (Glucagon 1 Mg/Vial) 1 mg IM 1X PRN PRN Reason: HYPOGLYCEMIA Hydralazine HCl (Hydralazine Hcl 20 Mg/Ml Vial) 10 mg IV Q6HP PRN PRN Reason: FOR SBP>160 OR DBP>100 [facility] Last Admin: 11/28/24 17:06 Dose: 10 mg Hydralazine HCl (Hydralazine Hcl 25 Mg Tablet) 75 mg PO TID [facility] Last Admin: 11/29/24 20:06 Dose: 75 mg Meropenem 500 mg/ Sodium (Chloride) 100 mls @ 200 mls/hr IV Q12HR [facility] Last Admin: 11/29/24 20:07 Dose: 100 mls Dextrose (Dextrose 10% Water Iv Soln.) 125 mls @ 0 mls/hr IV PRN PRN; Protocol PRN Reason: HYPOGLYCEMIA Insulin Human Regular (Insulin Regular (Human) 100 Unit/Ml) 0 unit SQ ACHS [facility]; Protocol Last Admin: 11/29/24 20:31 Dose: Not Given Ipratropium [place] (Ipratropium Brom 0.5mg/2.5ml) 0.5 mg NEB [id number] PRN PRN Reason: SHORTNESS OF BREATH Ondansetron HCl (Ondansetron 4 Mg/2 Ml Vial) 4 mg IV Q4H PRN PRN Reason: NAUSEA / VOMITING Last Admin: 11/29/24 20:05 Dose: 4 mg Microbiology Results 11/27/24 08:25 Clean Catch Urine [place] Count - Final >100,000 CFU/ML. 11/27/24 08:25 Clean Catch Urine - Final Escherichia Coli Assessment/ Plan: Nephrology No dyspnea No chest pain Feeling better No acute events overnight Vitals, medications, blood work and imaging reviewed in the chart General: In no apparent distress, Oriented x3, Cooperative HEENT: Atraumatic Neck: Supple Respiratory: Clear to auscultation bilaterally, Normal air movement Cardiovascular: No edema, Regular rate/rhythm Gastrointestinal: Soft and benign, Non-distended Musculoskeletal: No clubbing, No contractures Integumentary: No rashes, No cyanosis Neurological: Normal speech Blood work reviewed in the chart. Imagings Data: [id number] EXAMINATION: US RETROPERITONEUM CLINICAL INDICATION: [facility] MAIN ckd barrett TECHNIQUE: Real-time ultrasonography of the abdomen was performed. COMPARISON: No prior exam. FINDINGS: RIGHT KIDNEY: Right renal length measurement: 13.5 cm. Right upper pole 2.1 cm anechoic cyst. Normal in echogenicity and size. No calculus, solid mass or hydronephrosis. LEFT KIDNEY: Left renal length measurement: 8.1 cm. Interpolar 1.4 cm anechoic cyst. Asymmetrically smaller and showing marked cortical thinning. No calculus, solid mass or hydronephrosis. URINARY BLADDER: Normal. ADDITIONAL FINDINGS: None. IMPRESSION: Atrophic changes of the left kidney. Benign-appearing bilateral renal cortical cysts. EXAMINATION: ONE VIEW CHEST XR CLINICAL INDICATION: COUGH TECHNIQUE: Frontal chest projection is submitted. Examination is limited by patient positioning and technique. COMPARISON: No prior exam. FINDINGS: Mild interstitial pulmonary edema is seen. The heart is moderately enlarged. No displaced fractures identified. Aortic atherosclerosis. EXAMINATION: CT ABDOMEN AND PELVIS WITHOUT CONTRAST CLINICAL INDICATION: Abd pain;Pain TECHNIQUE: CT abdomen and pelvis was performed, without IV contrast, as per department protocol. Axial, sagittal and coronal reconstructions were obtained. One or more of the following dose reduction techniques were used: Automated exposure control, adjustment of the mA and kV according to the patient size, and iterative reconstruction. Unless otherwise specified, incidental findings do not require dedicated imaging follow-up. COMPARISON: No prior exam. FINDINGS: The lack of intravenous contrast limits the sensitivity of this exam for evaluation of solid visceral organs, vascular structures, and retroperitoneum. LOWER CHEST: The visualized lung bases are clear. Small hiatal hernia. LIVER:Normal in size and contour. No focal lesion. Cholecystectomy clips. SPLEEN: Normal size. No focal lesion. PANCREAS: No mass, ductal dilation, or song-pancreatic fluid. ADRENALS: Normal; no mass. KIDNEYS AND URETERS: Normal appearance of the right kidney. Highly atrophic left kidney. No hydronephrosis. URINARY BLADDER: Normal contour. GASTROINTESTINAL TRACT: No evidence of bowel obstruction, significant free fluid, free air or abscess. Postsurgical changes are present about the sigmoid colon. APPENDIX: Appendix not visualized, but no inflammatory changes in region of appendix. LYMPH NODES: No lymphadenopathy. MUSCULOSKELETAL: Mild multilevel spinal degenerative changes. ADDITIONAL FINDINGS: Aortoiliac atherosclerosis. IMPRESSION: No acute or concerning abnormalities in the abdomen or pelvis, with evaluation limited by lack of IV contrast. Conclusions/Impression: CKD IV with Proteinuria -No NSAIDs HTN with CKD -Continue Amlodipine -Continue Hydralazine Hypoalbuminemia -Encourage protein supplementation Anemia in chronic illness -Monitor H&H Acute E.coli Cystitis with hematuria -Continue Meropenem Hospitalist note reviewed Case reviewed with hospitalist team
--- NOTE | 2024-11-29 23:03 | PN ---
Subjective: The patient is lying in bed. No new acute event. Chart reviewed. Objective: Vital Signs: Temperature 98, pulse 67, respirations 14, blood pressure 147/69. Lungs: Basal crackles. Heart: S1, S2. Regular. Abdomen: Soft, nontender. Bowel sounds present. Extremities: No edema. Laboratory Data: WBC 5.8, hemoglobin 10.4, platelets 219. BUN of 36, creatinine 2.29. Urine cultur es growing E coli. The patient is currently on meropenem. Assessment And Plan: Urinary tract infection, growing Escherichia coli. Recommend to switch the pat ient to oral antibiotic as the patient has improved significantly. Consider Cipro or Augmentin as th e patient also has renal insufficiency. We will follow the patient as needed. NF/MODL Voice ID: [id number] Report ID: [id number]
[2024-11-30 06:45] LABS: Absolute Basophils 0.1 K/uL (0-0.5); Absolute Eosinophils 0.2 K/uL (0-0.5); Absolute Lymphocytes (CBC) 1.1 K/uL (0.7-4.9); Absolute Monocytes 0.5 K/uL (0.1-1.3); Absolute Neutrophil 3.5 K/uL (1.8-8.0); Basophils % 1.3 % (0-1.3); Eosinophils % 4.1 % (0-4.4); Hematocrit 32.4 % (36.0-45.0); Lymphocytes % 20.7 % (15.3-44.8); MCH 29.6 pg (27.0-35.0); MCHC 33.9 g/dL (32.0-36.0); MCV 87.2 fL (80-100); MPV 7.1 fL (7.6-11.3); Monocytes % 9.2 % (3.3-12.3); Neutrophils % 64.7 % (41.7-73.7); Platelets 213 thou/uL (152-406); RBC Red Blood Cell Count 3.72 M/uL (3.86-4.86); Red Cell Distribution Width 14.7 % (12.1-15.2)
[2024-11-30 06:57] LABS: Albumin 3.1 g/dL (3.4-5.0); Anion Gap 10.1 mEq/L (5.0-15.0); Magnesium 1.9 mg/dL (1.6-2.4); Phosphorus 2.6 mg/dL (2.5-4.9); Potassium 4.1 mEq/L (3.5-5.1)
--- NOTE | 2024-11-30 07:36 | P.PN ---
Date of Service: 11/30/24 Subjective nausea and vomiting improved with as needed antiemetic IV antibiotics for UTI, on meropenem, unable to tolerate p.o. intake PT to ambulate patient Review of Systems 10-point ROS is otherwise unremarkable Physical Examination - Vital Signs Reviewed - Physical Exam General: Alert, oriented x 3, no acute distress HEENT: Diana, atraumatic Neck: Supple, no jugular vein distention Respiratory: Equal, clear to auscultation Cardiovascular: S1-S2, Capillary refill: <2 Seconds Gastrointestinal: Positive bowel sounds, nontender Musculoskeletal: No clubbing, Integumentary: No breakdown, Neurological: Normal speech, no focal deficit Assessment And Plan - Current Problems (Diagnosis) (1) Acute renal failure Current Visit: Yes Status: Acute Qualifiers: Acute renal failure type: unspecified Qualified Code(s): N17.9 - Acute kidney failure, unspecified (2) Uremia Current Visit: Yes Status: Acute (3) History of ESBL E. coli infection Current Visit: Yes Status: Acute (4) Intractable nausea Current Visit: Yes Status: Acute (5) Diabetes mellitus Current Visit: Yes Status: Chronic Qualifiers: Diabetes mellitus type: type 2 Diabetes mellitus complication status: with kidney complications (6) COPD (chronic obstructive pulmonary disease) Current Visit: Yes Status: Chronic - Plan -Nephrology to consult Infectious disease consult for complicated UTI UA 4+ gram-negative rods on meropenem Renal ultrasound Atrophic changes of the left kidney. Benign-appearing bilateral renal cortical cysts. UA 4+ gram-negative rods on meropenem, while inpatient, culture positive for E. coli, d KBUN 53,, 38, 36 Creatinine 2.99 2.43, 2.29, 2.39 GFR 15, 21, 20, 21 -Sliding scale insulin -Hypoglycemia protocol -As needed nebs -Blood glucose monitor -Sliding scale -O2 2 L -Full code -DVT heparin Case discussed with nephrology Labile hypertension, blood pressure medications addressed by renal Discharge Plan: Home - Code Status/Comfort Care Code Status: Full Code Physician Review: Patient Assessed, Agree with Above Assessment and Plan Critical Care: No Time Spent Managing PTS Care (In Minutes): 25
[2024-11-30 08:28] LABS: Atypical Lymphocytes 1 %; Blood Morphology Comment NOT SEEN (NOT SEEN); Differential Total Cells Count 100; Eosinophils 2 % (0-3); Lymphocytes 25 % (15-42); Monocytes 3 % (0-10); Platelet Estimate ADEQ; Segmented Neutrophils 68 % (40-80)
[2024-11-30] MEDS: carvediloL 6.25 MG TAB PO SCH (11:32)
--- NOTE | 2024-11-30 14:34 | P.PN ---
Date of Service: 11/30/24 Review of Systems 10-point ROS is otherwise unremarkable. Family seen at bedside. no new acute event Physical Examination Temp Pulse Resp BP Pulse Ox 98.2 F 70 18 172/75 H 94 11/30/24 12:00 11/30/24 12:00 11/30/24 12:00 11/30/24 12:00 11/30/24 12:00 - Physical Exam General: Alert, In no apparent distress, Oriented x3 HEENT: Atraumatic, Normocephalic Neck: Supple, 2+ carotid pulse no bruit Respiratory: Clear to auscultation bilaterally Cardiovascular: RRR Capillary refill: <2 Seconds Gastrointestinal: Normal bowel sounds, Soft and ND, NT Musculoskeletal: No swelling, No contractures Integumentary: no skin breakdown Neurological: Normal speech, Normal strength at 5/5 x4 extr Laboratory Data (last 24 hrs) wbc 5.3, hgb 11, plt count 213,BUN 33, Cr 2.38, GFR 20 urine culture 11/27: 4+ GNR CT abdomen and pelvis 11/27/24:No acute or concerning abnormalities in the abdomen or pelvis, with evaluation limited by lack of IV contrast. Assessment and Plan (1) Complicated UTI (2) Acute renal failure (3) Uremia (4) History of ESBL E. coli infection s/p ertapenem for 10 days (5) Intractable nausea (6) Diabetes mellitus (7) COPD (chronic obstructive pulmonary disease) urine culture growing E coli. Continue meropenem. Monitor WBC and fever trend Pt is allergic to cipro and PCN and has renal insufficiency. Dr Kinney wants to continue pt on meropenum for a few more days. case round and in agreement with Dr Patricia
[2024-11-30] MEDS: DOCUSATE NA/SENNA CONC 1 TAB PO SCH (14:50)
[2024-11-30] MEDS: ISOSORBIDE MONO SR 30 MG TAB PO SCH (14:51)
[2024-11-30] MEDS: POLYETHYL GLY 3350 17 GM/DOSE PO SCH (14:51)
[2024-11-30] MEDS: HYDRALAZINE HCL 25 MG TABLET PO SCH (14:51)
--- NOTE | 2024-11-30 20:41 | P.PN ---
Date of Service: 11/30/24 Vital Signs Temp Pulse Resp BP Pulse Ox 98.1 F 65 18 157/71 H 95 11/30/24 16:00 11/30/24 16:00 11/30/24 16:00 11/30/24 16:00 11/30/24 16:00 Medications Albuterol Sulfate (Albuterol 2.5 Mg/3 Ml Neb Elsa) 2.5 mg NEB [id number] PRN PRN Reason: SHORTNESS OF BREATH Amlodipine Besylate (Amlodipine 10 Mg Tab) 10 mg PO DAILY [facility] Last Admin: 11/30/24 08:24 Dose: 10 mg Aspirin (Aspirin 325 Mg Tab) 325 mg PO BEDTIME [facility] Last Admin: 11/29/24 20:07 Dose: 325 mg Atorvastatin Calcium (Atorvastatin 10 Mg Tab) 10 mg PO BEDTIME [facility] Last Admin: 11/29/24 20:06 Dose: 10 mg Carvedilol (Carvedilol 6.25 Mg Tab) 6.25 mg PO BID [facility] Last Admin: 11/30/24 11:32 Dose: 6.25 mg Diphenhydramine HCl (Diphenhydramine 25 Mg Tab/Cap) 25 mg PO Q6H PRN PRN Reason: ITCHING Last Admin: 11/29/24 12:05 Dose: 25 mg Glucagon (Glucagon 1 Mg/Vial) 1 mg IM 1X PRN PRN Reason: HYPOGLYCEMIA Hydralazine HCl (Hydralazine Hcl 20 Mg/Ml Vial) 10 mg IV Q6HP PRN PRN Reason: FOR SBP>160 OR DBP>100 [facility] Last Admin: 11/28/24 17:06 Dose: 10 mg Hydralazine HCl (Hydralazine Hcl 25 Mg Tablet) 100 mg PO TID [facility] Last Admin: 11/30/24 14:51 Dose: 100 mg Meropenem 500 mg/ Sodium (Chloride) 100 mls @ 200 mls/hr IV Q12HR [facility] Last Admin: 11/30/24 08:25 Dose: 100 mls Dextrose (Dextrose 10% Water Iv Soln.) 125 mls @ 0 mls/hr IV PRN PRN; Protocol PRN Reason: HYPOGLYCEMIA Insulin Human Regular (Insulin Regular (Human) 100 Unit/Ml) 0 unit SQ ACHS [facility]; Protocol Last Admin: 11/30/24 16:30 Dose: Not Given Ipratropium [place] (Ipratropium Brom 0.5mg/2.5ml) 0.5 mg NEB [id number] PRN PRN Reason: SHORTNESS OF BREATH Isosorbide Mononitrate (Isosorbide [place] Sr 30 Mg Tab) 30 mg PO DAILY [facility] Last Admin: 11/30/24 14:51 Dose: 30 mg Ondansetron HCl (Ondansetron 4 Mg/2 Ml Vial) 4 mg IV Q4H PRN PRN Reason: NAUSEA / VOMITING Last Admin: 11/29/24 20:05 Dose: 4 mg Polyethylene Glycol (Polyethyl Gly 3350 17 Gm/Dose) 17 gm PO DAILY [facility] Last Admin: 11/30/24 14:51 Dose: 17 gm Senna/Docusate Sodium (Docusate Na/Senna Conc 1 Tab) 2 tab PO DAILY [facility] Last Admin: 11/30/24 14:50 Dose: 2 tab Microbiology Results 11/27/24 08:25 Clean Catch Urine [place] Count - Final >100,000 CFU/ML. 11/27/24 08:25 Clean Catch Urine - Final Escherichia Coli Assessment/ Plan: Nephrology No dyspnea No chest pain Malaise and anorexia today No acute events overnight Vitals, medications, blood work and imaging reviewed in the chart General: In no apparent distress, Oriented x3, Cooperative HEENT: Atraumatic Neck: Supple Respiratory: Clear to auscultation bilaterally, Normal air movement Cardiovascular: No edema, Regular rate/rhythm Gastrointestinal: Soft and benign, Non-distended Musculoskeletal: No clubbing, No contractures Integumentary: No rashes, No cyanosis Neurological: Normal speech Blood work reviewed in the chart. Imagings Data: [id number] EXAMINATION: US RETROPERITONEUM CLINICAL INDICATION: [facility] MA[facility] ckd barrett TECHNIQUE: Real-time ultrasonography of the abdomen was performed. COMPARISON: No prior exam. FINDINGS: RIGHT KIDNEY: Right renal length measurement: 13.5 cm. Right upper pole 2.1 cm anechoic cyst. Normal in echogenicity and size. No calculus, solid mass or hydronephrosis. LEFT KIDNEY: Left renal length measurement: 8.1 cm. Interpolar 1.4 cm anechoic cyst. Asymmetrically smaller and showing marked cortical thinning. No calculus, solid mass or hydronephrosis. URINARY BLADDER: Normal. ADDITIONAL FINDINGS: None. IMPRESSION: Atrophic changes of the left kidney. Benign-appearing bilateral renal cortical cysts. EXAMINATION: ONE VIEW CHEST XR CLINICAL INDICATION: COUGH TECHNIQUE: Frontal chest projection is submitted. Examination is limited by patient positioning and technique. COMPARISON: No prior exam. FINDINGS: Mild interstitial pulmonary edema is seen. The heart is moderately enlarged. No displaced fractures identified. Aortic atherosclerosis. EXAMINATION: CT ABDOMEN AND PELVIS WITHOUT CONTRAST CLINICAL INDICATION: Abd pain;Pain TECHNIQUE: CT abdomen and pelvis was performed, without IV contrast, as per department protocol. Axial, sagittal and coronal reconstructions were obtained. One or more of the following dose reduction techniques were used: Automated exposure control, adjustment of the mA and kV according to the patient size, and iterative reconstruction. Unless otherwise specified, incidental findings do not require dedicated imaging follow-up. COMPARISON: No prior exam. FINDINGS: The lack of intravenous contrast limits the sensitivity of this exam for evaluation of solid visceral organs, vascular structures, and retroperitoneum. LOWER CHEST: The visualized lung bases are clear. Small hiatal hernia. LIVER:Normal in size and contour. No focal lesion. Cholecystectomy clips. SPLEEN: Normal size. No focal lesion. PANCREAS: No mass, ductal dilation, or song-pancreatic fluid. ADRENALS: Normal; no mass. KIDNEYS AND URETERS: Normal appearance of the right kidney. Highly atrophic left kidney. No hydronephrosis. URINARY BLADDER: Normal contour. GASTROINTESTINAL TRACT: No evidence of bowel obstruction, significant free fluid, free air or abscess. Postsurgical changes are present about the sigmoid colon. APPENDIX: Appendix not visualized, but no inflammatory changes in region of appendix. LYMPH NODES: No lymphadenopathy. MUSCULOSKELETAL: Mild multilevel spinal degenerative changes. ADDITIONAL FINDINGS: Aortoiliac atherosclerosis. IMPRESSION: No acute or concerning abnormalities in the abdomen or pelvis, with evaluation limited by lack of IV contrast. Conclusions/Impression: CKD IV with Proteinuria -No NSAIDs HTN with CKD -Continue Amlodipine -Increase Hydralazine -Start Coreg Hypoalbuminemia -Encourage protein supplementation Anemia in chronic illness -Monitor H&H Atherosclerosis of the aorta -Continue Lipitor Acute E.coli Cystitis with hematuria -Continue Meropenem Hospitalist note reviewed Case reviewed with hospitalist team; consider PT
[2024-12-01 07:19] LABS: Albumin 2.8 g/dL (3.4-5.0); Magnesium 1.8 mg/dL (1.6-2.4); Phosphorus 2.7 mg/dL (2.5-4.9)
--- NOTE | 2024-12-01 14:25 | P.PN ---
Subjective Date of Service: 12/01/24 Chief Complaint: Nausea vomit Subjective: No chest pain. c/o some shortness of breath. No nausea or vomiting. No abdominal pain. No obvious bleeding. Looks comfortable in the bed. Objective: General appearance: Alert and comfortable CVS: Normal S1 and S2 Lungs: Clear to auscultation bilaterally Abdomen: Soft, bowel sounds present, no tenderness Extremities: No lower extremity edema Physical Examination - Vital Signs Temperature: 98.7 F Blood Pressure: 138/65 Pulse: 66 Respirations: 16 Pulse Ox (%): 94 Assessment And Plan - Plan Assessment And Plan - Current Problems (Diagnosis) (1) Acute renal failure on CKD Current Visit: Yes Status: Acute Qualifiers: Acute renal failure type: unspecified Qualified Code(s): N17.9 - Acute kidney failure, unspecified -Nephrology to consult on board 2) chronic anemia: Stable, monitor. 3. UTI: on IV meropenam Infectious disease on board (3) History of ESBL E. coli infection Current Visit: Yes Status: Acute (4) Intractable nausea Current Visit: Yes Status: Acute (5) Diabetes mellitus Current Visit: Yes Status: Chronic Qualifiers: Diabetes mellitus type: type 2 Diabetes mellitus complication status: with kidney complications (6) COPD (chronic obstructive pulmonary disease) Current Visit: Yes Status: Chronic 7. HTN: Continue current medications 79-year-old patient with UTI, urine culture showed e.coli, ID consult requested, WBC improving, due to multiple allergies, will continue IV antibiotics to finish the course. HARISH on CKD, CT abdomen negative, renal ultrasound showed a left renal atrophy, creatinine improving, nephrology is following. Hypertension, on hydralazine, and Norvasc, blood pressure high, resume imdur, added BB by renal. Chronic anemia, monitor closely. Abdominal x-ray showed constipation, continue bowel medications. Plan Discussed with the patient, answered all questions. DC home after done with ABX Physician Review: Patient Assessed, Agree with Above Assessment and Plan
--- NOTE | 2024-12-01 15:51 | RAD REPORT ---
EXAMINATION: TWO VIEW CHEST XR CLINICAL INDICATION: Shortness of breath TECHNIQUE: 2 views of the chest was performed. COMPARISON: No prior exam. FINDINGS: Mild pulmonary edema is a possibility. The heart is moderately enlarged in size. No displaced fractur es evident. IMPRESSION: Mild CHF is suspected.
--- NOTE | 2024-12-01 21:14 | P.PN ---
Date of Service: 12/01/24 Vital Signs Temp Pulse Resp BP Pulse Ox 98.1 F 67 18 147/67 H 94 12/01/24 20:00 12/01/24 20:00 12/01/24 20:00 12/01/24 20:00 12/01/24 20:00 Medications Albuterol Sulfate (Albuterol 2.5 Mg/3 Ml Neb Elsa) 2.5 mg NEB [id number] PRN PRN Reason: SHORTNESS OF BREATH Amlodipine Besylate (Amlodipine 10 Mg Tab) 10 mg PO DAILY [facility] Last Admin: 12/01/24 09:06 Dose: 10 mg Aspirin (Aspirin 325 Mg Tab) 325 mg PO BEDTIME RUDI Last Admin: 12/01/24 20:42 Dose: 325 mg Atorvastatin Calcium (Atorvastatin 10 Mg Tab) 10 mg PO BEDTIME URDI Last Admin: 12/01/24 20:42 Dose: 10 mg Carvedilol (Carvedilol 6.25 Mg Tab) 6.25 mg PO BID [facility] Last Admin: 12/01/24 20:43 Dose: 6.25 mg Diphenhydramine HCl (Diphenhydramine 25 Mg Tab/Cap) 25 mg PO Q6H PRN PRN Reason: ITCHING Last Admin: 11/29/24 12:05 Dose: 25 mg Glucagon (Glucagon 1 Mg/Vial) 1 mg IM 1X PRN PRN Reason: HYPOGLYCEMIA Hydralazine HCl (Hydralazine Hcl 20 Mg/Ml Vial) 10 mg IV Q6HP PRN PRN Reason: FOR SBP>160 OR DBP>100 MMHG Last Admin: 11/28/24 17:06 Dose: 10 mg Hydralazine HCl (Hydralazine Hcl 25 Mg Tablet) 100 mg PO TID [facility] Last Admin: 12/01/24 20:42 Dose: 100 mg Meropenem 500 mg/ Sodium (Chloride) 100 mls @ 200 mls/hr IV Q12HR RUDI Last Admin: 12/01/24 20:42 Dose: 100 mls Dextrose (Dextrose 10% Water Iv Soln.) 125 mls @ 0 mls/hr IV PRN PRN; Protocol PRN Reason: HYPOGLYCEMIA Insulin Human Regular (Insulin Regular (Human) 100 Unit/Ml) 0 unit SQ ACHS RUDI; Protocol Last Admin: 12/01/24 20:04 Dose: Not Given Ipratropium [place] (Ipratropium Brom 0.5mg/2.5ml) 0.5 mg NEB [id number] PRN PRN Reason: SHORTNESS OF BREATH Isosorbide Mononitrate (Isosorbide [place] Sr 30 Mg Tab) 30 mg PO DAILY [facility] Last Admin: 12/01/24 09:06 Dose: 30 mg Ondansetron HCl (Ondansetron 4 Mg/2 Ml Vial) 4 mg IV Q4H PRN PRN Reason: NAUSEA / VOMITING Last Admin: 11/29/24 20:05 Dose: 4 mg Polyethylene Glycol (Polyethyl Gly 3350 17 Gm/Dose) 17 gm PO DAILY [facility] Last Admin: 12/01/24 09:00 Dose: Not Given Senna/Docusate Sodium (Docusate Na/Senna Conc 1 Tab) 2 tab PO DAILY [facility] Last Admin: 12/01/24 09:00 Dose: Not Given Microbiology Results 11/27/24 08:25 Clean Catch Urine [place] Count - Final >100,000 CFU/ML. 11/27/24 08:25 Clean Catch Urine - Final Escherichia Coli Assessment/ Plan: Nephrology No dyspnea No chest pain Feeling better today. Working with PT No acute events overnight Vitals, medications, blood work and imaging reviewed in the chart General: In no apparent distress, Oriented x3, Cooperative HEENT: Atraumatic Neck: Supple Respiratory: Clear to auscultation bilaterally, Normal air movement Cardiovascular: No edema, Regular rate/rhythm Gastrointestinal: Soft and benign, Non-distended Musculoskeletal: No clubbing, No contractures Integumentary: No rashes, No cyanosis Neurological: Normal speech Blood work reviewed in the chart. Imagings Data: EXAMINATION: US RETROPERITONEUM CLINICAL INDICATION: [facility] ckd barrett TECHNIQUE: Real-time ultrasonography of the abdomen was performed. COMPARISON: No prior exam. FINDINGS: RIGHT KIDNEY: Right renal length measurement: 13.5 cm. Right upper pole 2.1 cm anechoic cyst. Normal in echogenicity and size. No calculus, solid mass or hydronephrosis. LEFT KIDNEY: Left renal length measurement: 8.1 cm. Interpolar 1.4 cm anechoic cyst. Asymmetrically smaller and showing marked cortical thinning. No calculus, solid mass or hydronephrosis. URINARY BLADDER: Normal. ADDITIONAL FINDINGS: None. IMPRESSION: Atrophic changes of the left kidney. Benign-appearing bilateral renal cortical cysts. EXAMINATION: ONE VIEW CHEST XR CLINICAL INDICATION: COUGH TECHNIQUE: Frontal chest projection is submitted. Examination is limited by patient positioning and technique. COMPARISON: No prior exam. FINDINGS: Mild interstitial pulmonary edema is seen. The heart is moderately enlarged. No displaced fractures identified. Aortic atherosclerosis. EXAMINATION: CT ABDOMEN AND PELVIS WITHOUT CONTRAST CLINICAL INDICATION: Abd pain;Pain TECHNIQUE: CT abdomen and pelvis was performed, without IV contrast, as per department protocol. Axial, sagittal and coronal reconstructions were obtained. One or more of the following dose reduction techniques were used: Automated exposure control, adjustment of the mA and kV according to the patient size, and iterative reconstruction. Unless otherwise specified, incidental findings do not require dedicated imaging follow-up. COMPARISON: No prior exam. FINDINGS: The lack of intravenous contrast limits the sensitivity of this exam for evaluation of solid visceral organs, vascular structures, and retroperitoneum. LOWER CHEST: The visualized lung bases are clear. Small hiatal hernia. LIVER:Normal in size and contour. No focal lesion. Cholecystectomy clips. SPLEEN: Normal size. No focal lesion. PANCREAS: No mass, ductal dilation, or song-pancreatic fluid. ADRENALS: Normal; no mass. KIDNEYS AND URETERS: Normal appearance of the right kidney. Highly atrophic left kidney. No hydronephrosis. URINARY BLADDER: Normal contour. GASTROINTESTINAL TRACT: No evidence of bowel obstruction, significant free fluid, free air or abscess. Postsurgical changes are present about the sigmoid colon. APPENDIX: Appendix not visualized, but no inflammatory changes in region of appendix. LYMPH NODES: No lymphadenopathy. MUSCULOSKELETAL: Mild multilevel spinal degenerative changes. ADDITIONAL FINDINGS: Aortoiliac atherosclerosis. IMPRESSION: No acute or concerning abnormalities in the abdomen or pelvis, with evaluation limited by lack of IV contrast. Conclusions/Impression: CKD IV with Proteinuria -No NSAIDs HTN with CKD -Continue Amlodipine -Continue Hydralazine -Continue Coreg Hypoalbuminemia -Encourage protein supplementation Anemia in chronic illness -Monitor H&H Atherosclerosis of the aorta -Continue Lipitor Acute E.coli Cystitis with hematuria -Continue Meropenem Hospitalist note reviewed Case reviewed with Dr. Kinney
--- NOTE | 2024-12-01 22:55 | PN ---
Subjective: The patient is lying in bed. No new complaints. Had an episode of dizziness during phy sical therapy. As per family, the patient is not getting her treatment for COPD with nebulizer inhal ers. Currently, on meropenem for urinary tract infection secondary to E coli. Objective: Vital Signs: Temperature 97.8, pulse 62, respirations 16, blood pressure 144/65. Lungs: Basal crackles. Heart: S1, S2. Regular. Abdomen: Soft, nontender. Bowel sounds present. Extremities: No edema. Laboratory Data: Shows WBC 5.3, hemoglobin 11, platelets are 213, BUN of 32, creatinine 2.2. Assessment And Plan: 1. Urinary tract infection secondary to Escherichia coli. Currently, on meropenem. Continue antibio tic for total of 7 days. History of Escherichia coli extended-spectrum beta-lactamase. At this time , the patient does not have extended-spectrum beta-lactamase, consider switching to Rocephin while e patient is in hospital. 2. Leukocytosis, improved. 3. Anemia of chronic disease. 4. Renal failure, moderate. 5. Moderate protein-calorie malnourishment. 6. Diabetes mellitus. 7. Chronic obstructive pulmonary disease. 8. Continue supportive care. We will follow the patient as needed. NF/MODL Voice ID: [id number] Report ID: [id number]
[2024-12-02 07:02] LABS: Absolute Basophils 0.1 K/uL (0-0.5); Absolute Eosinophils 0.3 K/uL (0-0.5); Absolute Lymphocytes (CBC) 1.1 K/uL (0.7-4.9); Absolute Monocytes 0.4 K/uL (0.1-1.3); Absolute Neutrophil 2.7 K/uL (1.8-8.0); Basophils % 1.4 % (0-1.3); Eosinophils % 5.9 % (0-4.4); Hemoglobin 10.1 g/dL (12.0-15.0); Lymphocytes % 23.5 % (15.3-44.8); MCH 29.2 pg (27.0-35.0); MCHC 33.7 g/dL (32.0-36.0); MCV 86.7 fL (80-100); MPV 7.5 fL (7.6-11.3); Monocytes % 9.4 % (3.3-12.3); Neutrophils % 59.8 % (41.7-73.7); Nucleated Red Blood Cells % 0.1 % (0-0); Platelets 182 thou/uL (152-406); RBC Red Blood Cell Count 3.46 M/uL (3.86-4.86); Red Cell Distribution Width 14.6 % (12.1-15.2)
[2024-12-02 07:12] LABS: Magnesium 1.8 mg/dL (1.6-2.4)
[2024-12-02] MEDS: FUROSEMIDE 20 MG TABLET PO SCH (09:32)
[2024-12-02] MEDS: PROCHLORPERAZINE 5 MG TAB PO PRN (10:48)
--- NOTE | 2024-12-02 11:41 | P.PN ---
Nephrology (S) Pt cont to cite feeling nauseous, low appetite, has not felt better since admission or on Abx for recurrent UTI. Last BM on Sun. No sig dyspnea. Vitals, medications, blood work and imaging reviewed in the chart General: In no apparent distress, Oriented x3, Cooperative HEENT: Atraumatic, not needing O2 Neck: Supple Respiratory: Clear to auscultation bilaterally, Normal air movement Cardiovascular: No edema, Regular rate/rhythm Gastrointestinal: Soft, ND, NT, hypoactive BS Musculoskeletal: shins non tender, No contractures,. Lt forearm AVF Integumentary: No rashes Neurological: Normal speech, alert, conversive, no tremors Blood work & imaging reviewed in the chart. Conclusions/Impression: Late CKD IV, long standing, solitary functional kidney state, small unilateral kidney -Renal function tests within baseline range, no current indication for AIR CONDITIONING UNIT TESTER Recurrent complicated UTI, Ecoli bacteriuria, prior hx of enterovesicular fistula a few years ago. -No other contributing factors noted on imaging. Complete Abx course per ID reccs, consider Abx suppressive therapy, f/u with Urology/surgery as OP HTN with CKD. Chronic diastolic CHF -Continue home meds, can resume lower dose PO maintenance diuretics Nausea, vomiting, unspecified -Unclear as not improved with treatment of cystitis, unclear if medication effect or other. Try Reglan IV, renally dosed, stop Compazine. Recheck KUB if persists
--- NOTE | 2024-12-02 14:14 | P.PN ---
Subjective Date of Service: 12/02/24 Chief Complaint: Nausea vomit felt nausea reports poor PO intake, and no BM for several days Physical Examination - Vital Signs Temperature: 98.1 F Blood Pressure: 147/66 Pulse: 66 Respirations: 16 Pulse Ox (%): 98 - Physical Exam General: Alert, Oriented x3 HEENT: Normocephalic Respiratory: Normal air movement Cardiovascular: Normal pulses, Regular rate/rhythm Gastrointestinal: Soft and benign, Non-distended Musculoskeletal: No swelling Assessment And Plan - Current Problems (Diagnosis) (1) History of ESBL E. coli infection Current Visit: Yes Status: Acute (2) Intractable nausea Current Visit: Yes Status: Acute - Plan (1) Acute renal failure on CKD Acute renal failure type: unspecified Qualified Code(s): N17.9 - Acute kidney failure, unspecified -Nephrology recs appreciated 2) chronic anemia: Stable, monitor. 3. UTI: on IV meropenam Infectious disease on board (3) History of ESBL E. coli infection --complete abx, urology followup (4) Intractable nausea constipation --advance diet, prn antiemetics, consider adjusting bowel regimen (5) Diabetes mellitus (6) COPD (chronic obstructive pulmonary disease) 7. HTN: Continue current medications 79-year-old patient with UTI, urine culture showed e.coli, ID consult requested, WBC improving, due to multiple allergies, will continue IV antibiotics to finish the course. HARISH on CKD, CT abdomen negative, renal ultrasound showed a left renal atrophy, creatinine improving, nephrology is following. Hypertension, on hydralazine, and Norvasc, blood pressure high, resume imdur, added BB by renal. Chronic anemia, monitor closely. Abdominal x-ray showed constipation, continue bowel medications. Plan Discussed with the patient, answered all questions. DC home after done with ABX Physician Review: Patient Assessed, Agree with Above Assessment and Plan
[2024-12-02] MEDS: LACTULOSE 20 GM/30 ML UCUP PO ONE (14:41)
--- NOTE | 2024-12-02 20:51 | P.PN ---
Date of Service: 12/02/24 Review of Systems 10-point ROS is otherwise unremarkable. denied any complaints/concern. no new acute event Physical Examination Temp Pulse Resp BP Pulse Ox 97.9 F 64 16 155/72 H 97 12/02/24 16:00 12/02/24 17:35 12/02/24 16:00 12/02/24 17:35 12/02/24 16:00 - Physical Exam General: Alert, In no apparent distress, Oriented x3 HEENT: Atraumatic, Normocephalic Neck: Supple, 2+ carotid pulse no bruit Respiratory: Clear to auscultation bilaterally Cardiovascular: RRR Capillary refill: <2 Seconds Gastrointestinal: Normal bowel sounds, Soft and ND, NT Musculoskeletal: No swelling, No contractures Integumentary: no skin breakdown Neurological: Normal speech, Normal strength at 5/5 x4 extr Laboratory Data (last 24 hrs) wbc 4.5, hgb 10.1, plt count 182,BUN 32, Cr 2.12, GFR 23 Laboratory Results Microbiology 11/27/24 08:25 Clean Catch Urine [place] Count - Final >100,000 CFU/ML. 11/27/24 08:25 Clean Catch Urine - Final Escherichia Coli CT abdomen and pelvis 11/27/24:No acute or concerning abnormalities in the abdomen or pelvis, with evaluation limited by lack of IV contrast. Assessment and Plan (1) Complicated UTI (2) Acute renal failure (3) Uremia (4) History of ESBL E. coli infection s/p ertapenem for 10 days (5) Intractable nausea (6) Diabetes mellitus (7) COPD (chronic obstructive pulmonary disease) urine culture growing E coli. Continue meropenem for a total of 7 days, tentative stop date december 04. Monitor WBC and fever trend case round and in agreement with Dr Patricia
--- NOTE | 2024-12-03 10:30 | P.PN ---
Subjective Date of Service: 12/03/24 Chief Complaint: Nausea vomit feels better denies nausea had BM Review of Systems 10-point ROS is otherwise unremarkable Physical Examination - Vital Signs Temperature: 97.9 F Blood Pressure: 140/64 Pulse: 67 Respirations: 16 Pulse Ox (%): 95 - Physical Exam General: Alert, Oriented x3 HEENT: Atraumatic Respiratory: Normal air movement, Diminished Gastrointestinal: Soft and benign, Non-distended Musculoskeletal: No swelling Integumentary: No rashes Assessment And Plan - Current Problems (Diagnosis) (1) History of ESBL E. coli infection Current Visit: Yes Status: Acute (2) Intractable nausea Current Visit: Yes Status: Acute - Plan (1) Acute renal failure on CKD Acute renal failure type: unspecified Qualified Code(s): N17.9 - Acute kidney failure, unspecified -Nephrology recs appreciated--improving 2) chronic anemia: Stable, monitor. 3. UTI: on IV meropenam Infectious disease on board, tentative stop date december 04. (3) History of ESBL E. coli infection --complete abx, urology followup (4) Intractable nausea constipation--resolved (5) Diabetes mellitus (6) COPD (chronic obstructive pulmonary disease) 7. HTN: Continue current medications dc in AM Physician Review: Patient Assessed, Agree with Above Assessment and Plan
--- NOTE | 2024-12-03 12:26 | P.PN ---
Nephrology (S) Pt reports nausea symptoms better, ate some biscuit this AM. Not interested in protein shakes. Had two BM last night. No sig dyspnea. Encouraged OOB Vitals, medications, blood work and imaging reviewed in the chart General: In no apparent distress, Oriented x3, Cooperative HEENT: Atraumatic, not needing O2 Neck: Supple Respiratory: Clear to auscultation bilaterally, Normal air movement Cardiovascular: No edema, Regular rate/rhythm Gastrointestinal: Soft, ND, NT, hypoactive BS Musculoskeletal: shins non tender, No contractures,. Lt forearm AVF Integumentary: No rashes Neurological: Normal speech, alert, conversive, no tremors Blood work & imaging reviewed in the chart. Conclusions/Impression: Late CKD IV, long standing, solitary functional kidney state, small unilateral kidney -Renal function tests within baseline range, no current indication for SHAKE FEEDER, no new labs this AM, will order for tmrw AM Recurrent complicated UTI, Ecoli bacteriuria, prior hx of enterovesicular fistula a few years ago. -No other contributing factors noted on imaging. Complete Abx course per ID reccs which should finish tmrw, consider Abx suppressive therapy, f/u with Urology/surgery as OP HTN with CKD. Chronic diastolic CHF -Continue home meds, currently stable BP range, did resume lower dose PO maintenance diuretics Nausea, vomiting, unspecified. -Improved, on Reglan IV PRN, renally dosed, stopped Compazine. Cont to monitor
[2024-12-04 07:02] LABS: Absolute Eosinophils 0.4 K/uL (0-0.5); Absolute Lymphocytes (CBC) 1.2 K/uL (0.7-4.9); Absolute Monocytes 0.5 K/uL (0.1-1.3); Absolute Neutrophil 3.3 K/uL (1.8-8.0); Basophils % 0.7 % (0-1.3); Eosinophils % 6.8 % (0-4.4); Hematocrit 31.9 % (36.0-45.0); Hemoglobin 10.9 g/dL (12.0-15.0); Lymphocytes % 21.8 % (15.3-44.8); MCH 29.2 pg (27.0-35.0); MCV 85.7 fL (80-100); MPV 7.1 fL (7.6-11.3); Monocytes % 9.5 % (3.3-12.3); Neutrophils % 61.2 % (41.7-73.7); Nucleated Red Blood Cells % 0.1 % (0-0); Platelets 224 thou/uL (152-406); RBC Red Blood Cell Count 3.73 M/uL (3.86-4.86); Red Cell Distribution Width 14.8 % (12.1-15.2)
[2024-12-04 07:10] LABS: Anion Gap 10.4 mEq/L (5.0-15.0); Potassium 3.4 mEq/L (3.5-5.1)
[2024-12-04] MEDS: METOCLOPRAMIDE 10 MG/2mL INJ IV PRN (07:39)
[2024-12-04] MEDS: POTASSIUM CL SA 10 MEQ TAB PO ONE (09:38)
--- NOTE | 2024-12-04 10:31 | P.PN ---
Date of Service: 12/04/24 Subjective Physical Examination - Vital Signs reviewed - Physical Exam General: Alert, Oriented x3 HEENT: Atraumatic Respiratory: Normal air movement, Diminished Gastrointestinal: Soft and benign, Non-distended Musculoskeletal: No swelling Integumentary: No rashes Assessment And Plan - - Assessment/Plan (1) UTI with ESBL E. coli infection Current Visit: Yes Status: Acute (2) Intractable nausea Current Visit: Yes Status: Acute (3) HARISH Current Visit: Yes Status: Acute (4) Chronic anemia Current Visit: Yes Status: Acute (5) Metabolic syndrome Current Visit: Yes Status: Acute (6) COPD Current Visit: Yes Status: Acute DC in AM Physician Review: Patient Assessed, Agree with Above Assessment and Plan
--- NOTE | 2024-12-04 13:24 | P.PN ---
Nephrology (S) Pt reports episode of N/V overnight, woke up to urinate and suddenly vomited, mostly watery. Denies abd pain, does not feel like eating much this AM Vitals, medications, blood work and imaging reviewed in the chart General: In no apparent distress, Oriented x3, Cooperative HEENT: Atraumatic, not needing O2 Neck: Supple Respiratory: Clear to auscultation bilaterally, Normal air movement Cardiovascular: No edema, Regular rate/rhythm Gastrointestinal: Soft, ND, NT, hypoactive BS Musculoskeletal: shins non tender, No contractures,. Lt forearm AVF Integumentary: No rashes Neurological: Normal speech, alert, conversive, no tremors Blood work & imaging reviewed in the chart. Conclusions/Impression: Late CKD IV, long standing, solitary functional kidney state, small unilateral kidney -Renal function tests within baseline range, no current indication for ASSESSMENT MANAGER, metab profile stable. Mild hypokalemia, will replete Recurrent complicated UTI, Ecoli bacteriuria, prior hx of enterovesicular fistula a few years ago. -No other contributing factors noted on imaging. Completing Abx course per ID reccs today, may consider Abx suppressive therapy, f/u with Urology/surgery as OP HTN with CKD. Chronic diastolic CHF -Continue home meds, mod elevated this AM, will f/u, did resume lower dose PO maintenance diuretics Nausea, vomiting, unspecified. -Perhaps 2nd to Abx therapy, will d/c Meropenem, has completed essentially a 1 week course, cont Reglan IV PRN, renally dosed, stopped Compazine. Cont to mon itor
[2024-12-05 09:00] VITALS: BP 176/74; TEMP 97.7
[2024-12-05] MEDS: POTASSIUM CL SA 10 MEQ TAB PO ONE (11:30)
--- NOTE | 2024-12-05 20:37 | P.PN ---
Date of Service: 12/05/24 Vital Signs Temp Pulse Resp BP Pulse Ox 97.7 F 77 18 176/74 H 96 12/05/24 08:00 12/05/24 09:14 12/05/24 08:00 12/05/24 09:14 12/05/24 08:00 Microbiology Results 11/27/24 08:25 Clean Catch Urine [place] Count - Final >100,000 CFU/ML. 11/27/24 08:25 Clean Catch Urine - Final Escherichia Coli Assessment/ Plan: Nephrology No dyspnea No chest pain Feeling better today No acute events overnight Vitals, medications, blood work and imaging reviewed in the chart General: In no apparent distress, Oriented x3, Cooperative HEENT: Atraumatic Neck: Supple Respiratory: Clear to auscultation bilaterally, Normal air movement Cardiovascular: No edema, Regular rate/rhythm Gastrointestinal: Soft and benign, Non-distended Musculoskeletal: No clubbing, No contractures Integumentary: No rashes, No cyanosis Neurological: Normal speech Blood work reviewed in the chart. Imagings Data: EXAMINATION: US RETROPERITONEUM CLINICAL INDICATION: [facility] ckd barrett TECHNIQUE: Real-time ultrasonography of the abdomen was performed. COMPARISON: No prior exam. FINDINGS: RIGHT KIDNEY: Right renal length measurement: 13.5 cm. Right upper pole 2.1 cm anechoic cyst. Normal in echogenicity and size. No calculus, solid mass or hydronephrosis. LEFT KIDNEY: Left renal length measurement: 8.1 cm. Interpolar 1.4 cm anechoic cyst. Asymmetrically smaller and showing marked cortical thinning. No calculus, solid mass or hydronephrosis. URINARY BLADDER: Normal. ADDITIONAL FINDINGS: None. IMPRESSION: Atrophic changes of the left kidney. Benign-appearing bilateral renal cortical cysts. EXAMINATION: ONE VIEW CHEST XR CLINICAL INDICATION: COUGH TECHNIQUE: Frontal chest projection is submitted. Examination is limited by patient positioning and technique. COMPARISON: No prior exam. FINDINGS: Mild interstitial pulmonary edema is seen. The heart is moderately enlarged. No displaced fractures identified. Aortic atherosclerosis. EXAMINATION: CT ABDOMEN AND PELVIS WITHOUT CONTRAST CLINICAL INDICATION: Abd pain;Pain TECHNIQUE: CT abdomen and pelvis was performed, without IV contrast, as per department protocol. Axial, sagittal and coronal reconstructions were obtained. One or more of the following dose reduction techniques were used: Automated exposure control, adjustment of the mA and kV according to the patient size, and iterative reconstruction. Unless otherwise specified, incidental findings do not require dedicated imaging follow-up. COMPARISON: No prior exam. FINDINGS: The lack of intravenous contrast limits the sensitivity of this exam for evaluation of solid visceral organs, vascular structures, and retroperitoneum. LOWER CHEST: The visualized lung bases are clear. Small hiatal hernia. LIVER:Normal in size and contour. No focal lesion. Cholecystectomy clips. SPLEEN: Normal size. No focal lesion. PANCREAS: No mass, ductal dilation, or song-pancreatic fluid. ADRENALS: Normal; no mass. KIDNEYS AND URETERS: Normal appearance of the right kidney. Highly atrophic left kidney. No hydronephrosis. URINARY BLADDER: Normal contour. GASTROINTESTINAL TRACT: No evidence of bowel obstruction, significant free fluid, free air or abscess. Postsurgical changes are present about the sigmoid colon. APPENDIX: Appendix not visualized, but no inflammatory changes in region of appendix. LYMPH NODES: No lymphadenopathy. MUSCULOSKELETAL: Mild multilevel spinal degenerative changes. ADDITIONAL FINDINGS: Aortoiliac atherosclerosis. IMPRESSION: No acute or concerning abnormalities in the abdomen or pelvis, with evaluation limited by lack of IV contrast. Conclusions/Impression: CKD IV with Proteinuria -No NSAIDs HTN with CKD -Continue Amlodipine -Continue Hydralazine -Continue Coreg Hypoalbuminemia -Encourage protein supplementation Anemia in chronic illness -Monitor H&H Atherosclerosis of the aorta -Continue Lipitor Acute E.coli Cystitis with hematuria -Continue Meropenem Hospitalist note reviewed Case reviewed with the hospitalist team
== END 2024-12-05 13:10 | disposition home or self-care (01) | DRG 683 ==
LOC: ER 07:01 → ERHOLD 11:14 → 2ND 19:54
PROVIDERS: ADMIT Family Medicine; ATTEND Hospitalist
DX: N17.9 Acute kidney failure, unspecified (principal); E44.0 Moderate protein-calorie malnutrition; N30.01 Acute cystitis with hematuria; E86.0 Dehydration; M10.9 Gout, unspecified; I12.9 Hypertensive chronic kidney disease with stage 1 through stage 4 chronic kidney disease, or unspecified chronic kidney disease; N18.4 Chronic kidney disease, stage 4 (severe); E11.22 Type 2 diabetes mellitus with diabetic chronic kidney disease; D63.1 Anemia in chronic kidney disease; E88.810 Metabolic syndrome; I70.0 Atherosclerosis of aorta; J44.9 Chronic obstructive pulmonary disease, unspecified; E88.09 Other disorders of plasma-protein metabolism, not elsewhere classified; B96.20 Unspecified Escherichia coli [E. coli] as the cause of diseases classified elsewhere; Z88.0 Allergy status to penicillin; Z88.1 Allergy status to other antibiotic agents; Z68.28 Body mass index [BMI] 28.0-28.9, adult; Z90.49 Acquired absence of other specified parts of digestive tract; Z90.710 Acquired absence of both cervix and uterus; Z28.310 Unvaccinated for COVID-19
CPT/HCPCS: 36415; 51702; 71045; 71046; 74018; 74176; 76770; 80048; 80069; 80076; 81001; 82947; 83690; 83735; 83880; 84484; 85025; 85610; 87077; 87086; 87088; 87186; 93005; 96361; 96365; 96375; 97110; 97116; 97161; 97530; 99285; J0360; J1200; J2185; J2405; J2765; J3535; J7030; Q0164

== ENCOUNTER 2025-03-19 11:45 | Inpatient (IN) | payer OTHER ==
[2025-03-19] MEDS ORDERED: NA CHLORIDE 0.9% 250 ML ONE (12:36)
[2025-03-19 12:47] LABS: Absolute Lymphocytes (CBC) 0.5 K/uL (0.7-4.9); Hematocrit 29.4 % (36.0-45.0); Hemoglobin 9.7 g/dL (12.0-15.0); MCH 28.8 pg (27.0-35.0); MCHC 33.1 g/dL (32.0-36.0); MCV 87.0 fL (80-100); MPV 7.1 fL (7.6-11.3); Nucleated RBC Absolute Count 0.0 (0-0); Nucleated Red Blood Cells % 0.1 % (0-0); RBC Red Blood Cell Count 3.38 M/uL (3.86-4.86); White Blood Count 9.20 thou/uL (4.3-10.9)
[2025-03-19 12:57] LABS: PT Prothrombin Time 13.7 SECONDS (10-13.0); PTT, Activated Partial Thromb 36.4 SECONDS (27.2-37.4); Protime INR 1.22
[2025-03-19 13:06] LABS: Influenza A Ag Negative; Influenza B Ag Negative; SARS-CoV-2 Antigen Rapid Res Negative (Negative)
[2025-03-19 13:12] LABS: AST/SGOT 14 U/L (15-37); Albumin 3.2 g/dL (3.4-5.0); Albumin/Globulin Ratio 0.8 (1.1-1.8); Alkaline Phosphatase 89 U/L (45-117); Anion Gap 13.2 mEq/L (5.0-15.0); BUN Blood Urea Nitrogen 87 mg/dL (7-18); Globulin 4.2 g/dL (2.3-3.5); Glucose Level 129 mg/dL (74-106); NT PRO-BNP 22959 pg/mL (<450); Potassium 3.2 mEq/L (3.5-5.1); Troponin High Sensitivity 52.6 pg/mL (<58.9)
[2025-03-19 13:14] LABS: ALT/SGPT < 14 U/L (13-56)
--- NOTE | 2025-03-19 13:20 | RAD REPORT ---
EXAMINATION: Abdomen Pelvis Wo Contrast CLINICAL INDICATION: Female, 79 years old.ABD PAIN TECHNIQUE: CT abdomen and pelvis was performed, without IV contrast, as per department protocol. Axia l, sagittal and coronal reconstructions were obtained. One or more of the following dose reduction techniques were used: Automated exposure control, adjustment of the mA and/or kV according to the pat ient size, and/or iterative reconstruction. Unless otherwise specified, incidental findings do not require dedicated imaging follow-up. [id number]. IV CONTRAST: Not administered. COMPARISON: 12/23/2024 FINDINGS: The lack of intravenous contrast limits the sensitivity of this exam for evaluation of solid visceral organs, vascular structures, and retroperitoneum. LOWER CHEST: Bilateral pleural effusions and likely underlying atelectasis.Moderate cardiomegaly. Mod erate coronary artery calcifications.Mild circumferential thickening of the distal esophagus which could reflect esophagitis. Aortic valve and mitral annular calcifications. UPPER GI: No significant abnormality. LIVER: No significant focal abnormality. GALLBLADDER/BILE DUCTS: Cholecystectomy.? PANCREAS: No mass, ductal dilation, or song-pancreatic fluid. SPLEEN: Unremarkable. ADRENALS: No adrenal masses. KIDNEYS AND URETERS: No hydronephrosis.Intermediate attenuation lesion in the interpolar aspect of th e right kidney previously consistent with a cyst. This likely represents some interval hemorrhage. It measures 13 mm.Atrophic left kidney.Other bilateral renal lesions likely representing cysts. ABDOMINAL AORTA AND OTHER VESSELS: Moderate atherosclerotic changes without aortic aneurysm. PERITONEUM: No abnormal free fluid. No free air. LYMPH NODES: No pathologic lymphadenopathy. ABDOMINAL WALL: Unremarkable SMALL BOWEL/COLON: Small bowel has normal course and caliber. No colonic wall thickening or pericolon ic inflammatory changes.Nonvisualized appendix but no secondary signs of acute appendicitis. Moderate formed stool burden. URINARY BLADDER: Underdistended but grossly unremarkable. REPRODUCTIVE ORGANS: Uterus surgically absent. No adnexal abnormality. MUSCULOSKELETAL: Multilevel degenerative changes in the spine. No acute fracture. ADDITIONAL FINDINGS: None. IMPRESSION: No acute findings within the abdomen or pelvis. Bilateral pleural effusions and likely underlying atelectasis. Source of the effusions could be from fluid overload/congestive heart failure.
--- NOTE | 2025-03-19 13:32 | RAD REPORT ---
EXAM: Chest Single View HISTORY: 79 years Female Cough;Fever COMPARISON: Same day CT a/p, chest radiograph 12/01/24 FINDINGS: LUNGS/PLEURA: Vascular congestion. Bilateral pleural effusions and associated atelectasis, better see n on the subsequent CT. CARDIAC/MEDIASTINUM: Mild cardiomegaly UPPER ABDOMEN: No significant abnormality. BONES: No acute abnormality. LINES/TUBES/OTHER: N/A IMPRESSION: Findings most likely representing mild congestive heart failure.
--- NOTE | 2025-03-19 13:41 | ER ---
Nurse's Notes [facility] Name: Marcelina Kinney Age: 79 yrs Sex: Female : 1945 Arrival Date: 03/19/2025 Time: 11:45 Bed 15 Private MD: Diagnosis: Acute pulmonary edema;Dyspnea, unspecified;Unspecified combined systolic (congestive) and diastolic (congestive) heart failure Presentation: 03/19 12:00 Chief complaint: Patient's son or daughter states: patient has been having a cough with ap3 an increase of shortness of breath for 10 days. patient reports feeling like there is "extra fluid on me.". patient also reports lower abdominal pain. Coronavirus screen: At this time, the client does not indicate any symptoms associated with coronavirus-19. Ebola Screen: No symptoms or risks identified at this time. Initial Sepsis Screen: Does the patient meet any 2 criteria? RR > 20 per min. HR > 90 bpm. Yes Does the patient have a suspected source of infection? No. Patient's initial sepsis screen is negative. Risk Assessment: Do you want to hurt yourself or someone else? Patient reports no desire to harm self or others. Onset of symptoms was March 09, 2025. 12:00 Method Of Arrival: Wheelchair ap3 12:00 Acuity: SHILA 2 ap3 Triage Assessment: 12:03 General: Appears ill, Behavior is appropriate for age. Pain: Complains of pain in ap3 abdomen. Neuro: Level of Consciousness is awake, alert, obeys commands, Oriented to person, place, time, Appropriate for age. Cardiovascular: Patient's skin is warm and dry. Respiratory: Airway is patent Respiratory effort is even, unlabored, Respiratory pattern is regular, symmetrical, tachypnea. Respiratory: Reports shortness of breath cough that is. GI: Reports lower abdominal pain. Historical: - Allergies: 12:02 Ciprofloxacin; ap3 12:02 Clarithromycin; ap3 12:02 FLU VACCINE; ap3 12:02 PENICILLINS; ap3 - PMHx: 12:02 CHF (Chronic obstructive); Chronic obstructive lung disease; diabetes mellitus; Gout; ap3 Hypertensive disorder; RENAL FAILURE; - PSHx: 12:02 Cholecystectomy; colorectal resection; hysterectomy; ap3 - Immunization history:: Adult Immunizations unknown. - Infectious Disease History:: Denies. - Social history:: Smoking status: unknown. - Family history:: not pertinent. - Hospitalizations: : No recent hospitalization is reported. Screenin:04 Abuse screen: Denies threats or abuse. Nutritional screening: No deficits noted. ap3 Tuberculosis screening: No symptoms or risk factors identified. 15:26 [facility] ED Fall Risk Assessment (Adult) History of falling in the last 3 months, db including since admission No falls in past 3 months (0 pts) Confusion or Disorientation No (0 pts) Intoxicated or Sedated No (0 pts) Impaired Gait No (0 pts) Mobility Assist Device Used No (0 pt) Altered Elimination No (0 pt) Score/Fall Risk Level 0 - 2 = Low Risk Oriented to surroundings, Maintained a safe environment. Assessment: 12:30 Reassessment: Patient appears in no apparent distress at this time. Patient and/or db family updated on plan of care and expected duration. Pain level reassessed. Patient is alert, oriented x 3, equal unlabored respirations, skin warm/dry/pink. SOB AND COUGH. Cardiovascular: Dialysis shunt: in the left arm. 15:26 Reassessment: Patient appears in no apparent distress at this time. Patient and/or db family updated on plan of care and expected duration. Pain level reassessed. Patient is alert, oriented x 3, equal unlabored respirations, skin warm/dry/pink. General: Appears in no apparent distress. comfortable, Behavior is calm, cooperative. Neuro: Level of Consciousness is awake, alert, obeys commands, Oriented to person, place, time, situation. Respiratory: Airway is patent Respiratory effort is even, unlabored, Respiratory pattern is regular, symmetrical. Vital Signs: 12:00 BP 144 / 57; Pulse 99; Resp 23; Temp 99.4(O); Pulse Ox 94% on R/A; Weight 83.46 kg; ap3 13:00 BP 122 / 54; Pulse 98; Resp 20; Pulse Ox 96% ; db 14:00 BP 117 / 77; Pulse 96; Resp 20; Pulse Ox 94% on R/A; db 14:46 BP 121 / 59; Pulse 95; Resp 19; Pulse Ox 94% on R/A; ap3 15:00 BP 110 / 53; Pulse 94; Resp 18; Pulse Ox 94% ; db ED Course: 11:48 Patient arrived in ED. al6 11:53 Connor Pisano MD is Attending Physician. rn 12:02 Triage completed. ap3 12:04 Arm band placed on right wrist. ap3 12:04 Patient has correct armband on for positive identification. Bed in low position. Call ap3 light in reach. Side rails up X2. Adult w/ patient. Client placed on continuous cardiac and pulse oximetry monitoring. NIBP monitoring applied. campus monitor on. Pulse ox on. NIBP on. 12:08 First set of blood cultures drawn EKG done, reviewed by Connor Pisano MD. db 12:30 Initial lab(s) drawn, by nv, sent to lab. Inserted saline lock: 20 gauge in right db antecubital area, using aseptic technique. Blood collected. Flushed with 10 mL NS. 12:33 Alicia Vogel, RN is Primary Nurse. db 12:40 COVID-19 Ag + Flu A+B Ag Sent. rk3 12:50 Abdomen In Process Unspecified. EDMS 12:[address]. db 12:56 Chest Single View XRAY In Process Unspecified. EDMS 13:40 Prince Urrutia MD is Hospitalizing Provider. rn 15:26 Provided Education on: ADMISSION. db 15:26 No provider procedures requiring assistance completed. Patient admitted, IV remains in db place. Administered Medications: 12:55 Drug: NS 0.9% IV 250 ml IV at bolus once; to be given as a bolus over 30 minutes Route: db IV; Rate: bolus; Site: right forearm; 15:31 Follow up: Response: No adverse reaction; IV Status: Completed infusion; IV Intake: db 250ml 13:55 Drug: Furosemide IVP 40 mg IVP once; give over 2 minutes Route: IVP; Site: right db antecubital; 15:32 Follow up: Response: No adverse reaction db Medication: 15:26 VIS not applicable for this client. db Intake: 15:31 IV: 250ml; Total: 250ml. db Outcome: 13:41 Decision to Hospitalize by Provider. rn 15:26 Admitted to Med/surg db 15:26 Condition: stable 15:26 Instructed on the need for admit, 15:32 Patient left the ED. db Signatures: Dispatcher [employer] EDMS Connor Pisano MD MD rn Prokisch, Amanda RN KWABENA ap3 Alicia Vogel, RN RN db Tamiko Michael al6 Nicolas Caballero rk3
--- NOTE | 2025-03-19 13:42 | EDPHYS ---
Physician Documentation [facility] Name: Marcelina Kinney Age: 79 yrs Sex: Female : 1945 Arrival Date: 03/19/2025 Time: 11:45 Bed 15 Private MD: ED Physician Connor Pisano HPI: 03/19 12:28 This 79 yrs old Female presents to ER via Wheelchair with complaints of Cough, shaking. rn 12:28 Patient and family report several days of productive cough and shortness of breath. rn Subjective fever and chills with shaking that started earlier today. Patient has history of CHF and COPD. Family reports legs look more swollen and they are concerned about fluid buildup. Patient also reports abdominal cramping with diarrhea that began today.. Historical: - Allergies: 12:02 Ciprofloxacin; ap3 12:02 Clarithromycin; ap3 12:02 FLU VACCINE; ap3 12:02 PENICILLINS; ap3 - PMHx: 12:02 CHF (Chronic obstructive); Chronic obstructive lung disease; diabetes mellitus; Gout; ap3 Hypertensive disorder; RENAL FAILURE; - PSHx: 12:02 Cholecystectomy; colorectal resection; hysterectomy; ap3 - Immunization history:: Adult Immunizations unknown. - Infectious Disease History:: Denies. - Social history:: Smoking status: unknown. - Family history:: not pertinent. - Hospitalizations: : No recent hospitalization is reported. ROS: 12:28 Constitutional: Positive for fever and chills Eyes: Negative for injury, pain, redness, rn and discharge, ENT: Positive for nasal congestion and sore throat Respiratory: Positive for cough and shortness of breath Abdomen/GI: Positive for abdominal cramping and diarrhea : Negative for injury, bleeding, discharge, and swelling, MS/Extremity: Negative for injury and deformity, Skin: Negative for injury, rash, and discoloration, Neuro: Positive for generalized weakness and malaise Exam: 12:14 ECG was reviewed by the Attending Physician. rn 12:28 Constitutional: This is a well developed, well nourished patient who is awake, rn somnolent but awakens to voice and able to hold normal conversation Head/Face: Normocephalic, atraumatic. ENT: Dry mucous membranes, no stridor Cardiovascular: Tachycardic, irregular Respiratory: Mild tachypnea Abdomen/GI: Soft, non-tender MS/ Extremity: Pulses equal, no cyanosis. Neurovascular intact. Full, normal range of motion. Equal circumference. 1+ edema bilateral lower extremities Neuro: Awake and alert, GCS 15 Vital Signs: 12:00 BP 144 / 57; Pulse 99; Resp 23; Temp 99.4(O); Pulse Ox 94% on R/A; Weight 83.46 kg; ap3 13:00 BP 122 / 54; Pulse 98; Resp 20; Pulse Ox 96% ; db 14:00 BP 117 / 77; Pulse 96; Resp 20; Pulse Ox 94% on R/A; db 14:46 BP 121 / 59; Pulse 95; Resp 19; Pulse Ox 94% on R/A; ap3 15:00 BP 110 / 53; Pulse 94; Resp 18; Pulse Ox 94% ; db MDM: 11:53 Medical Screening Exam initiated rn 13:38 ED course: No source of infection identified, majority of labs and imaging are rn consistent more with pulmonary edema. Will admit to hospitalist service for further care and diuresis.. 13:39 Differential Diagnosis: Upper Respiratory Infection Viral Syndrome Other Pulmonary rn edema, congestive heart failure, CHF exacerbation. Data reviewed: vital signs, nurses notes, lab test result(s), EKG, radiologic studies, CT scan, plain films, and as a result, I will admit patient. Consideration of Admission/Observation Patient was admitted/placed on observation. Escalation of care including admission/observation considered. Independent interpretation of the following test(s) in the Emergency Department X-Ray: My interpretation is Chest x-ray images show pulmonary edema per my interpretation. Test considered but Not performed: CT: CT of chest. Care significantly affected by the following chronic conditions: Congestive Heart Failure, Chronic Obstructive Pulmonary Disease, Chronic Kidney Disease. Counseling: I had a detailed discussion with the patient and/or guardian regarding the historical points, exam findings, and any diagnostic results supporting the discharge/admit diagnosis, lab results, radiology results, the need for further work-up and treatment in the hospital. 03/19 12:07 Order name: BNP; Complete Time: 13:32 rn 03/19 12:07 Order name: Blood Culture Adult (2) rn 03/19 12:07 Order name: CBC with Diff; Complete Time: 13:13 rn 03/19 12:07 Order name: CMP; Complete Time: 13:32 rn 03/19 12:07 Order name: Lactate w/ 2H reflex if indic.; Complete Time: 13:13 rn 03/19 12:07 Order name: Protime (+inr); Complete Time: 13:13 rn 03/19 12:07 Order name: Ptt, Activated; Complete Time: 13:13 rn 03/19 12:07 Order name: Troponin HS; Complete Time: 13:32 rn 03/19 12:07 Order name: UA Rfx Vj Cult if indicated rn 03/19 12:12 Order name: COVID-19 Ag + Flu A+B Ag; Complete Time: 13:13 rn 03/19 14:34 Order name: Basic Metabolic Panel EDMS 03/19 14:34 Order name: Basic Metabolic Panel EDMS 03/19 14:34 Order name: Basic Metabolic Panel EDMS 03/19 14:34 Order name: Basic Metabolic Panel EDMS 03/19 14:34 Order name: Basic Metabolic Panel EDMS 03/19 14:34 Order name: CBC with Automated Diff EDMS 03/19 14:34 Order name: CBC with Automated Diff EDMS 03/19 14:34 Order name: CBC with Automated Diff EDMS 03/19 14:34 Order name: CBC with Automated Diff EDMS 03/19 14:34 Order name: CBC with Automated Diff EDMS 03/19 14:34 Order name: Creatine Phosphokinase EDMS 03/19 14:34 Order name: Creatine Phosphokinase EDMS 03/19 14:34 Order name: Magnesium EDMS 03/19 14:34 Order name: Magnesium EDMS 03/19 14:34 Order name: Magnesium EDMS 03/19 14:34 Order name: Magnesium EDMS 03/19 14:34 Order name: Magnesium EDMS 03/19 14:35 Order name: Phosphorus EDMS 03/19 14:35 Order name: Phosphorus EDMS 03/19 14:35 Order name: Phosphorus EDMS 03/19 14:35 Order name: Phosphorus EDMS 03/19 14:35 Order name: Phosphorus EDMS 03/19 14:35 Order name: T4 Free EDMS 03/19 14:35 Order name: T4 Free EDMS 03/19 14:35 Order name: Thyroid Stimulating Hormone EDMS 03/19 14:35 Order name: Thyroid Stimulating Hormone EDMS 03/19 12:07 Order name: Chest Single View XRAY; Complete Time: 13:32 rn 03/19 12:44 Order name: Abdomen ; Complete Time: 13:32 EDMS 03/19 14:34 Order name: Echo with Doppler EDMS 03/19 12:07 Order name: Accucheck; Complete Time: 14:02 rn 03/19 12:07 Order name: Cardiac monitoring; Complete Time: 12:34 rn 03/19 12:07 Order name: EKG - Nurse/Tech; Complete Time: 12:34 rn 03/19 12:07 Order name: IV Saline Lock - Large Bore; Complete Time: 12:34 rn 03/19 12:07 Order name: Labs collected and sent; Complete Time: 12:34 rn 03/19 12:07 Order name: O2 Per Protocol; Complete Time: 12:34 rn 03/19 12:07 Order name: O2 Sat Monitoring; Complete Time: 12:34 rn 03/19 12:07 Order name: Vital Signs; Complete Time: 12:34 rn EC:14 Rate is 100 beats/min. Rhythm is regular. Left axis deviation noted. QRS is positive in rn lead I and negative in lead aVF. TX interval is normal. QRS interval is normal. QT interval is normal. No Q waves. T waves are Normal. No ST changes noted. Clinical impression: NSR w/ Non-specific ST/T Changes. Interpreted by me. Reviewed by me. Administered Medications: 12:55 Drug: NS 0.9% IV 250 ml IV at bolus once; to be given as a bolus over 30 minutes Route: db IV; Rate: bolus; Site: right forearm; 15:31 Follow up: Response: No adverse reaction; IV Status: Completed infusion; IV Intake: db 250ml 13:55 Drug: Furosemide IVP 40 mg IVP once; give over 2 minutes Route: IVP; Site: right db antecubital; 15:32 Follow up: Response: No adverse reaction db Disposition Summary: 03/19/25 13:41 Hospitalization Ordered Notes: Hospitalization Status: Inpatient Admission rn Provider: Prince Renan rn Location: Telemetry/MedSurg (Inpatient) rn Condition: Stable rn Problem: new rn Symptoms: have improved rn Bed/Room Type: Standard rn Room Assignment: 201(03/19/25 14:36) eb Diagnosis - Acute pulmonary edema rn - Dyspnea, unspecified rn - Unspecified combined systolic (congestive) and diastolic (congestive) heart failure rn Forms: - Medication Reconciliation Form rn - SBAR form rn - Leadership Thank You Letter rn Signatures: Dispatcher [employer] EDMS Connor Pisano MD MD rn Prokisch, Amanda, RN RN ap3 Diane Simpson Danielle, RN RN db Corrections: (The following items were deleted from the chart) 12:07 12:07 PROBNP+C.LAB.BRZ ordered. EDMS EDMS 12: 12:07 BLOOD CULTURE*+BA.LAB.BRZ ordered. EDMS EDMS 12: 12:07 CBC+H.LAB.BRZ ordered. EDMS EDMS 12: 12:07 COMPREHENSIVE METABOLIC PANEL+C.LAB.BRZ ordered. EDMS EDMS 12: 12:07 LACTATE+C.LAB.BRZ ordered. EDMS EDMS 12: 12:07 PROTIME (+INR)+COAG.LAB.BRZ ordered. EDMS EDMS 12: 12:07 PTT, ACTIVATED+COAG.LAB.BRZ ordered. EDMS EDMS 12:07 12:07 Troponin High Sensitivity+C.LAB.BRZ ordered. EDMS EDMS 12:07 12:07 UA Rfx Vj Cult if indicated+U.LAB.BRZ ordered. EDMS EDMS 12:08 12:07 Chest Single View+RAD.RAD.BRZ ordered. EDMS EDMS 12:13 12:13 COVID-19 Ag + Flu A+B Ag+I.LAB.BRZ ordered. EDMS EDMS 12:44 12:28 Abdomen Pelvis W Con+CT.RAD.BRZ ordered. EDMS EDMS 14:36 13:41 rn eb
[2025-03-19] MEDS ORDERED: FUROSEMIDE 40 MG/4 ML VIAL ONE (13:51)
[2025-03-19 14:21] LABS: Sqamous Epithelial <5 /HPF (None Seen); Urine Culture Reflex Order NOT NEEDED; Urine Microscopic Reflex YN ORDER UMIC
[2025-03-19] MEDS ORDERED: ALBUTEROL 2.5 MG/3 ML NEB SOL NEB PRN (14:28)
--- NOTE | 2025-03-19 15:03 | P.HP ---
Certification for Inpatient Patient admitted to: Inpatient With expected LOS: >2 Midnights Patient will require the following post-hospital care: None Practitioner: I am a practitioner with admitting privileges, knowledge of patient current condition, hospital course, and medical plan of care. Services: Services provided to patient in accordance with Admission requirements found in Title 42 Section 412.3 of the Code of Federal Regulations Patient History Date of Service: 03/19/25 Reason for admission: CHF exacerbation History of Present Illness: 79-year-old female with history of CHF, CKD 4, ejk-[id number]-vivwkyjsd diabetes, hypertension, hyperlipidemia, gout, COPD presents the emergency department with 1 week of progressive dyspnea, orthopnea and lower extremity edema. She was seen by her nephrology group earlier this week and her Lasix had been increased from 20 mg twice daily to 40 mg twice daily but she is still not getting much relief. Patient was evaluated in the ER her labs were significant for a creatinine of 3.64 GFR 12 BUN 87 BNP 22,959 sodium 132 potassium 3.2 chloride 94 hemoglobin 9.7 UA not concerning for UTI negative for influenza, COVID Chest x-ray showed findings most likely representing mild congestive heart failure. CT of the abdomen pelvis was also performed which showed no acute findings in the abdomen pelvis, bilateral pleural effusions and likely underlying atelectasis. Of note patient does have a left upper extremity fistula which has matured but has not been used yet, she has been on the edge of needing dialysis for some time now. She is admitted for further management of pulmonary edema, CHF exacerbation, acute kidney injury Allergies clarithromycin Allergy (Verified 11/03/24 13:39) Unknown influenza virus vaccine ts [id number] (36 mos,up) [From [employer]ix] Allergy (Verified 11/03/24 13:39) Anaphylaxis Penicillins Allergy (Verified 11/03/24 13:39) Hives/Rash Home Medications: Amlodipine Besylate 10 mg PO BEDTIME 05/12/22 Atorvastatin Calcium [Lipitor*] 20 mg PO BEDTIME 05/12/22 Famotidine [Pepcid*] 20 mg PO BID 05/12/22 Gabapentin [Neurontin*] 300 mg PO BEDTIME 05/12/22 Meclizine HCl 25 mg PO BIDP PRN 05/12/22 [place]-3 Fatty Acids [[place]-3] 1 cap PO DAILY 05/12/22 Vitamin E (Dl,Tocopheryl Acet) [Vitamin E] 180 mg PO DAILY 05/12/22 Fluticasone/Salmeterol [Advair Hfa 45-21 Mcg Inhaler] 2 puff IH BID 11/27/24 Furosemide 20 mg PO BID 11/27/24 Guaifenesin [Mucinex] 600 mg PO DAILYPRN PRN 11/27/24 Ipratropium/Albuterol Sulfate [Iprat-Albut 0.5-3(2.5) mg/3 ml] 3 ml IH BID 11/27/24 Isosorbide Mononitrate [Isosorbide Mononitrate ER] 30 mg PO DAILY 11/27/24 Potassium Chloride 10 meq PO DAILY 11/27/24 Diphenhydramine [Benadryl*] 25 mg PO Q6H PRN 11/28/24 Magnesium Chloride [Slow-Mag*] 64 mg PO DAILY #30 tab 12/05/24 Ondansetron [Zofran (Odt)*] 4 mg PO Q6H PRN #15 tab 12/05/24 Polyethylene Glycol 3350 [Miralax] 17 gm PO DAILY #30 packet 12/05/24 carvediloL [Coreg*] 6.25 mg PO BID #60 tab 12/05/24 Allopurinol 50 mg PO QOD QID 12/23/24 Hydralazine HCl 75 mg PO TID 12/23/24 Metoclopramide HCl [Reglan] 5 mg PO AC PRN 12/23/24 levoFLOXacin [Levaquin*] 500 mg PO Q48H #3 tab 12/28/24 - Past Medical/Surgical History Diabetic: Yes -: COPD -: DM II -: Gout -: HTN -: CKD IV (Dr. Bell/ [place]) -: CHF -: Colorectal resection -: Hysterectomy -: Cholecystectomy -: Left FA fistula (has not started dialysis/MD monitoring kidney function) - Social History Alcohol use: No CD- Drugs: No Caffeine use: No Place of Residence: Home Review of Systems 10-point ROS is otherwise unremarkable Respiratory: Shortness of Breath Cardiovascular: Orthopnea, Edema Physical Examination - Physical Exam General: Alert, In no apparent distress, Oriented x3 HEENT: Atraumatic, PERRLA, EOMI Neck: Supple, 2+ carotid pulse no bruit, No LAD Respiratory: Diminished, Crackles/rales Cardiovascular: Regular rate/rhythm, Normal S1 S2, Edema (Bilateral lower extremity edema) Gastrointestinal: Normal bowel sounds, No tenderness Musculoskeletal: No tenderness Integumentary: No rashes Neurological: Normal gait, Normal speech, Normal strength at 5/5 x4 extr, Normal affect - Studies Laboratory Data (last 24 hrs) 03/19/25 03/19/25 03/19/25 12:30 12:30 12:30 WBC 9.20 Hgb 9.7 L Hct 29.4 L Plt Count 300 PT 13.7 H INR 1.22 APTT 36.4 Sodium 132 L Potassium 3.2 L BUN 87 H Creatinine 3.64 H Glucose 129 H Total Bilirubin 0.7 AST 14 L ALT < 14 Alkaline Phosphatase 89 Assessment and Plan - Plan Assessment: HARISH on CKD 4 Acute on chronic CHFunknown EF Diabetes mellitus type 2 is [id number]-bbdutasnf Hypertension Hyperlipidemia COPD Gout Plan: HARISH on CKD 4 Acute on chronic CHFunknown EF Oral Lasix recently increased from 20 mg twice daily to 40 mg twice daily by nephrology outpatient We will start with IV Lasix at 40 mg twice daily and monitor renal function/output closely Nephrology consultation Obtain echocardiogram Does have left upper extremity fistula which has matured in place Continue other home medications as previously prescribed Diabetes mellitus type 2 is [id number]-wyscmnqxc ACHS Accu-Chek, sliding scale insulin Hypertension Hyperlipidemia Gout Continue home medications when verified COPD As needed nebulizer treatments DVT PPX: Heparin subcu Code status: Full code Discharge Plan: Home Plan to discharge in: Greater than 2 days - Advance Directives Does patient have a Living Will: No Does patient have a Durable POA for Healthcare: No - Code Status/Comfort Care Code Status Assessed: Yes (Full code) Critical Care: No Time Spent Managing Pts Care (In Minutes): 76
[2025-03-19] MEDS: INSULIN REGULAR (HUMAN) 100 UNIT/ML SQ SCH (16:30)
[2025-03-19 19:51] VITALS: O2SAT 94
[2025-03-19] MEDS: HEPARIN 5000 UNIT/ML 1 ML VIAL SQ SCH (20:16)
[2025-03-20 04:32] LABS: Absolute Lymphocytes (CBC) 1.0 K/uL (0.7-4.9); Hematocrit 27.6 % (36.0-45.0); Hemoglobin 9.3 g/dL (12.0-15.0); MCH 29.2 pg (27.0-35.0); MCHC 33.8 g/dL (32.0-36.0); MCV 86.4 fL (80-100); MPV 7.1 fL (7.6-11.3); Nucleated RBC Absolute Count 0.0 (0-0); Nucleated Red Blood Cells % 0.0 % (0-0); RBC Red Blood Cell Count 3.19 M/uL (3.86-4.86); White Blood Count 7.20 thou/uL (4.3-10.9)
[2025-03-20 05:20] LABS: Anion Gap 12.2 mEq/L (5.0-15.0); BUN Blood Urea Nitrogen 83.0 mg/dL (7-18); Glucose Level 121.0 mg/dL (74-106); Magnesium 2.6 mg/dL (1.6-2.4); Potassium 3.2 mEq/L (3.5-5.1); Thyroid Stimulating Hormone 1.23 uIU/mL (0.358-3.740)
[2025-03-20] MEDS ORDERED: GUAIFENESIN 600 MG SA TAB PO PRN (09:47)
[2025-03-20] MEDS ORDERED: FAMOTIDINE 20 MG TAB PO PRN (09:47)
--- NOTE | 2025-03-20 09:47 | P.PN ---
Date of Service: 03/20/25 Subjective: No acute events overnight No significant changes in symptoms reports he feels about the same as yesterday in regards to her breathing ROS: 10 point ROS as noted above, otherwise negative Physical exam GEN: Alert, oriented, NAD HEENT: Normal conjunctiva, sclera anicteric CV: Regular rate and rhythm, trace edema lower extremities Pulm: Nonlabored respirations on room air, diminished bilaterally ABD: Soft, nontender, nondistended MSK: No joint tenderness Integumentary: No rashes Neuro: Normal speech, normal affect Vitals reviewed Assessment: HARISH on CKD 4 Acute on chronic CHFunknown EF Diabetes mellitus type 2 is ezx-gmiabbl-fttwrhhor Hypertension Hyperlipidemia COPD Gout Plan: HARISH on CKD 4 Acute on chronic CHFunknown EF Oral Lasix recently increased from 20 mg twice daily to 40 mg twice daily by nephrology outpatient We will start with IV Lasix at 40 mg twice daily and monitor renal function/output closely Nephrology consultation, await further recommendations from nephrology Obtain echocardiogram Does have left upper extremity fistula which has matured in place Continue other home medications as previously prescribed Diabetes mellitus type 2 is cnz-iuzwcwp-ovgmhxybg ACHS Accu-Chek, sliding scale insulin Hypertension Hyperlipidemia Gout Continue home medications when verified COPD As needed nebulizer treatments DVT PPX: Heparin subcu Code status: Full code Discharge Plan: Home Plan to discharge in: Greater than 2 days Time Spent Managing Pts Care (In Minutes): 35
[2025-03-20] MEDS: D MANNOSE 500 MG PO SCH (12:00)
[2025-03-20] MEDS ORDERED: HOME MED 1 EA UNK (Ascorbic Acid [Vitamin C] 500 MG Capsule) PO SCH (12:00)
[2025-03-20] MEDS ORDERED: HOME MED 1 EA UNK (Cholecalciferol (Vitamin D3) [Vitamin D3] 2000 UNIT Capsule) PO SCH (12:00)
[2025-03-20] MEDS: ASCORBIC ACID 500 MG TABLET PO SCH (12:12)
[2025-03-20] MEDS: VITAMIN D 1000 UNIT TAB PO SCH (12:30)
[2025-03-20 14:44] VITALS: BMI 29.7
[2025-03-20] MEDS: HYDRALAZINE HCL 25 MG TABLET PO SCH (16:19)
[2025-03-20] MEDS ORDERED: HOME MED 1 EA UNK (Hydralazine Hcl [Hydralazine Hcl] 100 MG Tablet) PO SCH (17:00)
[2025-03-20] MEDS: ALBUTEROL 2.5 MG/3 ML NEB SOL IH SCH (18:10)
[2025-03-20] MEDS: IPRATROPIUM BROM 0.5MG/2.5ML IH SCH (18:10)
--- NOTE | 2025-03-20 19:25 | P.CNS ---
Date of Consult: 03/20/25 Reason for Consult: HARISH/ CKD Requesting Physician: Leno Pisano Chief Complaint: CHF exacerbation History of Present Illness: 79-year-old female with history of CHF, CKD 4, kur-ehnbuaz-hfueriwdj diabetes, hypertension, hyperlipidemia, gout, COPD presents the emergency department with 1 week of progressive dyspnea, orthopnea and lower extremity edema. She was seen by her nephrology group earlier this week and her Lasix had been increased from 20 mg twice daily to 40 mg twice daily but she is still not getting much relief. Patient was evaluated in the ER her labs were significant for a creatinine of 3.64 GFR 12 BUN 87 BNP 22,959 sodium 132 potassium 3.2 chloride 94 hemoglobin 9.7 UA not concerning for UTI negative for influenza, COVID Chest x-ray showed findings most likely representing mild congestive heart failure. CT of the abdomen pelvis was also performed which showed no acute findings in the abdomen pelvis, bilateral pleural effusions and likely underlying atelectasis. Of note patient does have a left upper extremity fistula which has matured but has not been used yet, she has been on the edge of needing dialysis for some time now. She is admitted for further management of pulmonary edema, CHF exacerbation, acute kidney injury [id number] 12:28 This 79 yrs old Female presents to ER via Wheelchair with complaints of Cough, shaking. rn 12:28 Patient and family report several days of productive cough and shortness of breath. rn Subjective fever and chills with shaking that started earlier today. Patient has history of CHF and COPD. Family reports legs look more swollen and they are concerned about fluid buildup. Patient also reports abdominal cramping with diarrhea that began today.. Allergies clarithromycin Allergy (Verified 11/03/24 13:39) Unknown influenza virus vaccine ts [id number] (36 mos,up) [From [facility]] Allergy (Verified 11/03/24 13:39) Anaphylaxis Penicillins Allergy (Verified 11/03/24 13:39) Hives/Rash Home medications list reviewed: Yes Home Medications: Amlodipine Besylate 10 mg PO BEDTIME 05/12/22 Atorvastatin Calcium [Lipitor*] 20 mg PO BEDTIME 05/12/22 Famotidine [Pepcid*] 20 mg PO DAILY PRN 05/12/22 Gabapentin [Neurontin*] 300 mg PO BEDTIME 05/12/22 Hartfield-3 Fatty Acids [Hartfield-3] 1 cap PO DAILY 05/12/22 Vitamin E (Dl,Tocopheryl Acet) [Vitamin E] 180 mg PO DAILY 05/12/22 Fluticasone/Salmeterol [Advair Hfa 45-21 Mcg Inhaler] 2 puff IH BID 11/27/24 Furosemide 20 mg PO BID 11/27/24 Guaifenesin [Mucinex] 600 mg PO DAILYPRN PRN 11/27/24 Ipratropium/Albuterol Sulfate [Iprat-Albut 0.5-3(2.5) mg/3 ml] 3 ml IH BID 11/27/24 Isosorbide Mononitrate [Isosorbide Mononitrate ER] 30 mg PO BEDTIME 11/27/24 Potassium Chloride 10 meq PO DAILY 11/27/24 Hydralazine HCl 75 mg PO DAILY AT SUPPER 12/23/24 Albuterol Sulfate [Albuterol Sulfate Hfa] 100 mg BID 03/19/25 Ascorbic Acid [Vitamin C] 500 mg PO NOON 03/19/25 Aspirin 325 mg PO BEDTIME 03/19/25 Cholecalciferol (Vitamin D3) [Vitamin D3] 2,000 mg PO NOON 03/19/25 D-Mannose [Azo D-Mannose] 500 mg PO NOON 03/19/25 Ferrous Gluconate [Iron] 65 mg PO BEDTIME 03/19/25 Magnesium [Magnesium Gluconate] 400 mg PO BEDTIME 03/19/25 Semaglutide [Ozempic] 0.25 mg SQ SEECOM 03/19/25 Ubidecarenone [Co Q-10] 200 mg PO BEDTIME 03/19/25 - Past Medical/Surgical History Diabetic: Yes -: COPD -: DM II -: Gout -: HTN -: CKD IV (Dr. Bell/ [place]) -: CHF -: Colorectal resection -: Hysterectomy -: Cholecystectomy -: Left FA fistula (has not started dialysis/MD monitoring kidney function) - Social History Smoking Status: Unknown if ever smoked Alcohol use: No CD- Drugs: No Caffeine use: No Place of Residence: Home Review of Systems 10-point ROS is otherwise unremarkable General: Weakness Respiratory: SOB with Excertion Physical Examination Temp Pulse Resp BP Pulse Ox 98.0 F 96 H 16 153/73 H 94 03/20/25 16:00 03/20/25 16:00 03/20/25 16:00 03/20/25 16:00 03/20/25 16:00 General: In no apparent distress, Oriented x3, Cooperative HEENT: Atraumatic Neck: Supple Respiratory: Normal air movement Cardiovascular: No edema, Regular rate/rhythm Gastrointestinal: Soft and benign, Non-distended Musculoskeletal: No clubbing, No contractures Integumentary: No rashes, No cyanosis Neurological: Normal speech Blood work reviewed in the chart. Imagings Data: [id number] EXAMINATION: Abdomen Pelvis Wo Contrast CLINICAL INDICATION: Female, 79 years old.ABD PAIN TECHNIQUE: CT abdomen and pelvis was performed, without IV contrast, as per department protocol. Axial, sagittal and coronal reconstructions were obtained. One or more of the following dose reduction techniques were used: Automated exposure control, adjustment of the mA and/or kV according to the patient size, and/or iterative reconstruction. Unless otherwise specified, incidental findings do not require dedicated imaging follow-up. [id number]. IV CONTRAST: Not administered. COMPARISON: 12/23/2024 FINDINGS: The lack of intravenous contrast limits the sensitivity of this exam for evaluation of solid visceral organs, vascular structures, and retroperitoneum. LOWER CHEST: Bilateral pleural effusions and likely underlying atelectasis. Moderate cardiomegaly. Moderate coronary artery calcifications.Mild circumferential thickening of the distal esophagus which could reflect esophagitis. Aortic valve and mitral annular calcifications. UPPER GI: No significant abnormality. LIVER: No significant focal abnormality. GALLBLADDER/BILE DUCTS: Cholecystectomy.? PANCREAS: No mass, ductal dilation, or song-pancreatic fluid. SPLEEN: Unremarkable. ADRENALS: No adrenal masses. KIDNEYS AND URETERS: No hydronephrosis.Intermediate attenuation lesion in the interpolar aspect of the right kidney previously consistent with a cyst. This likely represents some interval hemorrhage. It measures 13 mm.Atrophic left kidney.Other bilateral renal lesions likely representing cysts. ABDOMINAL AORTA AND OTHER VESSELS: Moderate atherosclerotic changes without aortic aneurysm. PERITONEUM: No abnormal free fluid. No free air. LYMPH NODES: No pathologic lymphadenopathy. ABDOMINAL WALL: Unremarkable SMALL BOWEL/COLON: Small bowel has normal course and caliber. No colonic wall thickening or pericolonic inflammatory changes.Nonvisualized appendix but no secondary signs of acute appendicitis. Moderate formed stool burden. URINARY BLADDER: Underdistended but grossly unremarkable. REPRODUCTIVE ORGANS: Uterus surgically absent. No adnexal abnormality. MUSCULOSKELETAL: Multilevel degenerative changes in the spine. No acute fracture. ADDITIONAL FINDINGS: None. IMPRESSION: No acute findings within the abdomen or pelvis. Bilateral pleural effusions and likely underlying atelectasis. Source of the effusions could be from fluid overload/congestive heart failure. [id number] EXAM: Chest Single View HISTORY: 79 years Female Cough;Fever COMPARISON: Same day CT a/p, chest radiograph 12/01/24 FINDINGS: LUNGS/PLEURA: Vascular congestion. Bilateral pleural effusions and associated atelectasis, better seen on the subsequent CT. CARDIAC/MEDIASTINUM: Mild cardiomegaly UPPER ABDOMEN: No significant abnormality. BONES: No acute abnormality. LINES/TUBES/OTHER: N/A IMPRESSION: Findings most likely representing mild congestive heart failure. Conclusions/Impression: Stage I HARISH CKD IV -No NSAIDs Hyponatremia -Continue Lasix Hypokalemia -Replete as ordered HTN with CKD/ CHF -Continue Amlodipine Diastolic CHF, A/C -Continue Lasix DM II with CKD -RISS Anemia in chronic illness/ CKD -Retacrit prn CKD MBD Secondary HyperParathyroidism -Continue Cholecalciferol Recurrent UTI -Continue D-Mannose Hospitalist and ER notes reviewed Thank you kindly for the consultation
[2025-03-20] MEDS: FERROUS GLUCONATE 324 MG TAB PO SCH (20:04)
[2025-03-20] MEDS: COENZYME Q10- 200 MG CAP PO SCH (20:04)
[2025-03-20] MEDS: AMLODIPINE 10 MG TAB PO SCH (20:05)
[2025-03-20] MEDS: ISOSORBIDE MONO SR 30 MG TAB PO SCH (20:05)
[2025-03-20] MEDS: GABAPENTIN 300 MG CAP PO SCH (20:05)
[2025-03-20] MEDS: ALBUTEROL INHALER 200 PUFF/6.7 GM IH SCH (20:06)
[2025-03-20] MEDS: ATORVASTATIN 20 MG TAB PO SCH (20:06)
[2025-03-20] MEDS: FLUTICASONE IH SCH (20:06)
[2025-03-20] MEDS: SALMETEROL IH SCH (20:06)
[2025-03-20] MEDS: MAGNESIUM OXIDE 400 MG TAB PO SCH (20:06)
[2025-03-20] MEDS: ONDANSETRON 4 MG/2 ML VIAL IV PRN (20:07)
[2025-03-20] MEDS: POTASSIUM CL SA 10 MEQ TAB PO ONE (20:10)
[2025-03-20] MEDS ORDERED: ASPIRIN 325 MG PO SCH (21:00)
[2025-03-20] MEDS ORDERED: FERROUS GLUCONATE PO SCH (21:00)
[2025-03-20] MEDS ORDERED: HOME MED 1 EA UNK (Ipratropium/Albuterol Sulfate [Iprat-Albut 0.5-3(2.5) Mg/3 Ml] 3 ML Amp IH SCH (21:00)
[2025-03-20] MEDS ORDERED: HOME MED 1 EA UNK (Magnesium [Magnesium Gluconate] 200 MG Tablet) PO SCH (21:00)
[2025-03-21 04:32] LABS: Absolute Lymphocytes (CBC) 1.1 K/uL (0.7-4.9); Hematocrit 28.4 % (36.0-45.0); Hemoglobin 9.6 g/dL (12.0-15.0); MCH 29.1 pg (27.0-35.0); MCHC 33.6 g/dL (32.0-36.0); MCV 86.4 fL (80-100); MPV 6.8 fL (7.6-11.3); Nucleated RBC Absolute Count 0.0 (0-0); Nucleated Red Blood Cells % 0.1 % (0-0); RBC Red Blood Cell Count 3.29 M/uL (3.86-4.86); White Blood Count 6.60 thou/uL (4.3-10.9)
[2025-03-21 04:46] LABS: Anion Gap 13.3 mEq/L (5.0-15.0); BUN Blood Urea Nitrogen 89.0 mg/dL (7-18); Glucose Level 108.0 mg/dL (74-106); Magnesium 2.7 mg/dL (1.6-2.4); Potassium 3.3 mEq/L (3.5-5.1); Uric Acid 14.5 mg/dL (2.6-6.0)
[2025-03-21 05:41] LABS: Hepatitis B surface AG Interp. Nonreactive (Nonreactive)
[2025-03-21 05:42] LABS: Hepatitis B Surface Ab - Quant < 3.10 mIU/mL (<8.0)
[2025-03-21 05:43] LABS: HBsAG Nonreactive Report Report
[2025-03-21] MEDS ORDERED: MANNITOL 25% 12.5 GM/50 ML VIAL IV PRN (08:04)
[2025-03-21] MEDS ORDERED: NA CHLORIDE 0.9% 1,000 ML IV PRN (08:04)
[2025-03-21] MEDS ORDERED: EPOETIN ALFA 10,000 UNIT/ML VIAL IV SCH (08:15)
[2025-03-21] MEDS ORDERED: HOME MED 1 EA UNK (Omega-3 Fatty Acids [Omega-3] 1,000 MG Capsule) PO SCH (09:00)
[2025-03-21] MEDS ORDERED: ALBUMIN HUMAN 25% 50 ML IV SCH (09:00)
[2025-03-21] MEDS: POTASSIUM CL SA 10 MEQ TAB PO ONE (09:11)
[2025-03-21] MEDS: FUROSEMIDE 40 MG/4 ML VIAL IV SCH (09:12)
[2025-03-21] MEDS: ASPIRIN EC 325 MG TABLET PO SCH (09:12)
[2025-03-21] MEDS: VITAMIN E 400 IU CAP PO SCH (09:12)
[2025-03-21] MEDS: DOCOSAHEXANOIC AC/EPA 1000 MG PO SCH (09:12)
--- NOTE | 2025-03-21 15:26 | ECHO ---
HEIGHT: 5 ft 6 in WEIGHT: 184 lb 3.2 oz DATE OF STUDY: 03/21/[address]: Harvey Hall NP 2-DIMENSIONAL: YES M.MODE: YES DOPPLER: YES COLOR FLOW: YES TDS: NO PORTABLE: YES DEFINITY: NO BUBBLE STUDY: NO DIAGNOSIS: PULMONARY EDEMA/ UNKOWN EJECTION FRACTION CARDIAC HISTORY: CATHERIZATION: SURGERY: PROSTHETIC VALVE: PACEMAKER: MEASUREMENTS (cm) DIASTOLIC (NORMALS) SYSTOLIC (NORMALS) IVSd 1.0 (0.6-1.2) LA Diam 3.6 (1.9-4.0) LVEF 50-55% LVIDd 4.7 (3.5-5.7) LVIDs 3.5 (2.0-3.5) %FS 26% LVPWd 1.1 (0.6-1.2) Ao Diam 2.8 (2.0-3.7) 2 DIMENSIONAL ASSESSMENT: RIGHT ATRIUM: NORMAL LEFT ATRIUM: NORMAL RIGHT VENTRICLE: NORMAL LEFT VENTRICLE: NORMAL TRICUSPID VALVE: MILD TRICUSPID REGURGITATION MITRAL VALVE: MILD MITRAL REGURGITATION PULMONIC VALVE: NORMAL AORTIC VALVE: MILDLY CALCIFIED PERICARDIAL EFFUSION: NONE AORTIC ROOT: NORMAL LEFT VENTRICULAR WALL MOTION: NORMAL. DOPPLER/COLOR FLOW: GRADE II DIASTOLIC DYSFUNCTION. COMMENTS: 1. LOW NORMAL LEFT VENTRICULAR SYSTOLIC FUNCTION, EJECTION FRACTION 50-55%, NORMAL WALL MOTION. 2. GRADE II DIASTOLIC DYSFUNCTION. 3. MODERATE PULMONARY HYPERTENSION (RIGHT VENTRICULAR SYSTOLIC PRESSURE 45-50mmHg) 4. MILDLY ELEVATED FILLING PRSSURE (RIGHT ATRIAL PRESSURE 10-15mmHg) TECHNOLOGIST: SUSHILA GERBER
--- NOTE | 2025-03-21 20:46 | P.PN ---
Date of Service: 03/21/25 Subjective: awake, feeling well creatinine improving, Nephrology plans for dialysis today ROS: 10 point ROS as noted above, otherwise negative Physical exam GEN: Awake and alert, NAD HEENT: Normal conjunctiva, sclera anicteric CV: RRR, trace edema lower extremities Pulm: on room air, diminished bilaterally ABD: Soft on palpation, ND/NT MSK: No joint tenderness Integumentary: No rashes Neuro: Normal speech, normal affect Vitals reviewed Assessment: HARISH on CKD 4 Acute on chronic CHFunknown EF Diabetes mellitus type 2 is scl-mqyntue-lfrdhtkuh Hypertension Hyperlipidemia COPD Gout Plan: HARISH on CKD 4 Acute on chronic CHFunknown EF Hypokalemia Oral Lasix 40 mg twice daily per nephrology outpatient UOP 1050 ml recorded today Nephrology consultation, plan for dialysis today echocardiogram reports "ED 50-55%, Grade II diastolic dysfunction, moderate pul monary HTN, mild tricuspid and mitral regurg, mild calcified aortic valve." Does have left upper extremity fistula which has matured in place Continue other home medications as previously prescribed Replaced potassium PO Diabetes mellitus type 2 is stv-cfhsvlw-iivgzwgpv ACHS Accu-Chek, sliding scale insulin Hypertension Hyperlipidemia Gout Continue home medications when verified COPD As needed nebulizer treatments DVT PPX: Heparin subcu Code status: Full code Discharge Plan: Home Plan to discharge in: Greater than 2 days Time Spent Managing Pts Care (In Minutes): 38
[2025-03-21] MEDS: AMLODIPINE 10 MG TAB PO SCH (20:59)
--- NOTE | 2025-03-21 21:26 | P.PN ---
Date of Service: 03/21/25 Vital Signs Temp Pulse Resp BP Pulse Ox 97.6 F 84 16 132/68 93 03/21/25 12:00 03/21/25 17:32 03/21/25 12:00 03/21/25 17:32 03/21/25 12:00 Medications Acetaminophen (Acetaminophen 325 Mg Tablet) 650 mg PO Q4HP PRN PRN Reason: Pain scale 2-4 (Mild) Albuterol Sulfate (Albuterol 2.5 Mg/3 Ml Neb Elsa) 2.5 mg NEB [id number] PRN PRN Reason: SHORTNESS OF BREATH Albuterol Sulfate (Albuterol Inhaler 200 Puff/6.7 Gm) 2.8 puff IH BID [facility] Last Admin: 03/21/25 21:00 Dose: 2.8 puff Albuterol Sulfate (Albuterol 2.5 Mg/3 Ml Neb Elsa) 2.5 mg IH BIDRESP [facility] Last Admin: 03/21/25 18:27 Dose: 2.5 mg Amlodipine Besylate (Amlodipine 10 Mg Tab) 10 mg PO BEDTIME [facility] Last Admin: 03/21/25 20:59 Dose: 10 mg Ascorbic Acid (Ascorbic Acid 500 Mg Tablet) 500 mg PO NOON [facility] Last Admin: 03/21/25 12:16 Dose: 500 mg Aspirin (Aspirin Ec 325 Mg Tablet) 325 mg PO DAILY [facility] Last Admin: 03/21/25 09:12 Dose: 325 mg Atorvastatin Calcium (Atorvastatin 20 Mg Tab) 20 mg PO BEDTIME [facility] Last Admin: 03/21/25 20:59 Dose: 20 mg Cholecalciferol (Vitamin D 1000 Unit Tab) 2,000 unit PO NOON [facility] Last Admin: 03/21/25 12:16 Dose: 2,000 unit Coenzyme Q10 (Coenzyme Q10- 200 Mg Cap) 200 mg PO BEDTIME [facility] Last Admin: 03/21/25 20:59 Dose: 200 mg Epoetin Kris (Epoetin Kris 10,000 Unit/Ml Vial) 10,000 unit IV EVERY HD [facility] Famotidine (Famotidine 20 Mg Tab) 20 mg PO DAILY PRN; Protocol PRN Reason: INDIGESTION Fish Oil (Docosahexanoic Ac/Epa 1000 Mg) 1,000 mg PO DAILY [facility] Last Admin: 03/21/25 09:12 Dose: 1,000 mg Furosemide (Furosemide 40 Mg/4 Ml Vial) 40 mg IV BIDL [facility] Last Admin: 03/21/25 17:32 Dose: 40 mg Gabapentin (Gabapentin 300 Mg Cap) 300 mg PO BEDTIME [facility] Last Admin: 03/21/25 20:59 Dose: 300 mg Guaifenesin (Guaifenesin 600 Mg Sa Tab) 600 mg PO DAILYPRN PRN PRN Reason: COUGH Heparin Sodium (Porcine) (Heparin 5000 Unit/Ml 1 Ml Vial) 5,000 unit SQ Q12HR [facility] Last Admin: 03/21/25 21:00 Dose: 5,000 unit Home Med (D-Mannose [Azo D-Mannose]) 500 mg PO NOON [facility] Last Admin: 03/21/25 12:00 Dose: Not Given Home Med (Fluticasone/Salmeterol [Advair Hfa 45-21 Mcg Inhaler]) 2 puff IH BID [facility] Last Admin: 03/21/25 20:54 Dose: Not Given Sodium Chloride (Ns 1000 Ml Ivbag) 1,000 mls @ 0 mls/hr IV .Q0M PRN; Protocol PRN Reason: Priming and BP support at HD Stop: 03/21/25 23:59 Albumin Human (Albumin 25%) 50 mls @ 100 mls/hr IV EVERY HD [facility] Insulin Human Regular (Insulin Regular (Human) 100 Unit/Ml) 0 unit SQ ACHS [facility]; Protocol Last Admin: 03/21/25 20:58 Dose: Not Given Ipratropium Beverly (Ipratropium Brom 0.5mg/2.5ml) 0.5 mg IH BIDRESP [facility] Last Admin: 03/21/25 18:27 Dose: 0.5 mg Isosorbide Mononitrate (Isosorbide Jessamine Sr 30 Mg Tab) 30 mg PO BEDTIME [facility] Last Admin: 03/21/25 20:59 Dose: 30 mg Mannitol (Mannitol 25% 12.5 Gm/50 Ml Vial) 12.5 gm IV EVERY HD PRN PRN Reason: Titrate to SBP (MUST DEFINE) Ondansetron HCl (Ondansetron 4 Mg/2 Ml Vial) 4 mg IV Q6HP PRN PRN Reason: NAUSEA / VOMITING Last Admin: 03/21/25 08:10 Dose: 4 mg Vitamin E (Vitamin E 400 Iu Cap) 400 iu PO DAILY [facility] Last Admin: 03/21/25 09:12 Dose: 400 iu Microbiology Results 08/17/25 12:30 Blood - Blood Aerobic Blood Culture - Preliminary No growth in 24 hours. 03/19/25 12:30 Blood - Blood Anaerobic Blood Culture - Preliminary No growth in 24 hours. 03/19/25 12:08 Blood - Blood Aerobic Blood Culture - Preliminary No growth in 24 hours. 03/19/25 12:08 Blood - Blood Anaerobic Blood Culture - Preliminary No growth in 24 hours. Assessment/ Plan: Nephrology Improving dyspnea No chest pain Nausea this morning No acute events overnight Vitals, medications, blood work and imaging reviewed in the chart General: In no apparent distress, Oriented x3, Cooperative HEENT: Atraumatic Neck: Supple Respiratory: Normal air movement Cardiovascular: No edema, Regular rate/rhythm Gastrointestinal: Soft and benign, Non-distended Musculoskeletal: No clubbing, No contractures Integumentary: No rashes, No cyanosis Neurological: Normal speech [facility] with thrill Blood work reviewed in the chart. Imagings Data: EXAMINATION: Abdomen Pelvis Wo Contrast CLINICAL INDICATION: Female, 79 years old.ABD PAIN TECHNIQUE: CT abdomen and pelvis was performed, without IV contrast, as per department protocol. Axial, sagittal and coronal reconstructions were obtained. One or more of the following dose reduction techniques were used: Automated exposure control, adjustment of the mA and/or kV according to the patient size, and/or iterative reconstruction. Unless otherwise specified, incidental findings do not require dedicated imaging follow-up. [id number]. IV CONTRAST: Not administered. COMPARISON: 12/23/2024 FINDINGS: The lack of intravenous contrast limits the sensitivity of this exam for evaluation of solid visceral organs, vascular structures, and retroperitoneum. LOWER CHEST: Bilateral pleural effusions and likely underlying atelectasis. Moderate cardiomegaly. Moderate coronary artery calcifications.Mild circumfere ntial thickening of the distal esophagus which could reflect esophagitis. Aortic valve and mitral annular calcifications. UPPER GI: No significant abnormality. LIVER: No significant focal abnormality. GALLBLADDER/BILE DUCTS: Cholecystectomy.? PANCREAS: No mass, ductal dilation, or song-pancreatic fluid. SPLEEN: Unremarkable. ADRENALS: No adrenal masses. KIDNEYS AND URETERS: No hydronephrosis.Intermediate attenuation lesion in the interpolar aspect of the right kidney previously consistent with a cyst. This likely represents some interval hemorrhage. It measures 13 mm.Atrophic left kidney.Other bilateral renal lesions likely representing cysts. ABDOMINAL AORTA AND OTHER VESSELS: Moderate atherosclerotic changes without aortic aneurysm. PERITONEUM: No abnormal free fluid. No free air. LYMPH NODES: No pathologic lymphadenopathy. ABDOMINAL WALL: Unremarkable SMALL BOWEL/COLON: Small bowel has normal course and caliber. No colonic wall thickening or pericolonic inflammatory changes.Nonvisualized appendix but no secondary signs of acute appendicitis. Moderate formed stool burden. URINARY BLADDER: Underdistended but grossly unremarkable. REPRODUCTIVE ORGANS: Uterus surgically absent. No adnexal abnormality. MUSCULOSKELETAL: Multilevel degenerative changes in the spine. No acute fracture. ADDITIONAL FINDINGS: None. IMPRESSION: No acute findings within the abdomen or pelvis. Bilateral pleural effusions and likely underlying atelectasis. Source of the effusions could be from fluid overload/congestive heart failure. EXAM: Chest Single View HISTORY: 79 years Female Cough;Fever COMPARISON: Same day CT a/p, chest radiograph 12/01/24 FINDINGS: LUNGS/PLEURA: Vascular congestion. Bilateral pleural effusions and associated atelectasis, better seen on the subsequent CT. CARDIAC/MEDIASTINUM: Mild cardiomegaly UPPER ABDOMEN: No significant abnormality. BONES: No acute abnormality. LINES/TUBES/OTHER: N/A IMPRESSION: Findings most likely representing mild congestive heart failure. Conclusions/Impression: Stage I HARISH CKD IV -No NSAIDs -Dialysis initiated 03-21-25 through [facility] -Hepatitis panel negative -[facility] D[facility] placement pending Hyponatremia -Continue Lasix Hypokalemia -Replete as ordered HTN with CKD/ CHF -Continue Amlodipine Diastolic CHF, A/C Moderate Pulmonary HTN -Continue Lasix DM II with CKD -RISS Anemia in chronic illness/ CKD -Retacrit prn CKD MBD Secondary HyperParathyroidism -Continue Cholecalciferol Recurrent UTI -Continue D-Mannose Hospitalist note reviewed
[2025-03-22 04:29] LABS: Absolute Lymphocytes (CBC) 1.2 K/uL (0.7-4.9); Hematocrit 26.0 % (36.0-45.0); Hemoglobin 9.0 g/dL (12.0-15.0); MCH 29.5 pg (27.0-35.0); MCHC 34.5 g/dL (32.0-36.0); MCV 85.5 fL (80-100); MPV 6.4 fL (7.6-11.3); Nucleated RBC Absolute Count 0.0 (0-0); Nucleated Red Blood Cells % 0.0 % (0-0); RBC Red Blood Cell Count 3.05 M/uL (3.86-4.86); White Blood Count 6.00 thou/uL (4.3-10.9)
[2025-03-22 04:41] LABS: Anion Gap 9.5 mEq/L (5.0-15.0); BUN Blood Urea Nitrogen 55.0 mg/dL (7-18); Glucose Level 94.0 mg/dL (74-106); Magnesium 2.5 mg/dL (1.6-2.4); Potassium 3.5 mEq/L (3.5-5.1)
--- NOTE | 2025-03-22 07:51 | P.PN ---
Date of Service: 03/22/25 Subjective: Difficult cannulation for today's dialysis No new complaints ROS: 10 point ROS as noted above, otherwise negative Physical exam GEN: Oriented x 3, NAD HEENT: Atraumatic CV: NSR, S1-S2 present Pulm: on room air, nonlabored breathing ABD: Soft on palpation MSK: No joint tenderness Integumentary: No rashes Neuro: Normal speech, normal affect Vitals reviewed Assessment: HARISH on CKD 4 Acute on chronic CHFunknown EF Diabetes mellitus type 2 is rsv-kniokmg-jybrrciko Hypertension Hyperlipidemia COPD Gout Plan: HARISH on CKD 4 Acute on chronic CHFunknown EF Hypokalemia Continue IV Lasix 40 mg twice daily per nephrology outpatient UOP 350 ml recorded today Nephrology consultation, plan for dialysis today echocardiogram reports "ED 50-55%, Grade II diastolic dysfunction, moderate pulmonary HTN, mild tricuspid and mitral regurg, mild calcified aortic valve." Does have left upper extremity fistula which has matured in place, difficult cannulation Continue other home medications as previously prescribed Replaced potassium PO Diabetes mellitus type 2 is [id number]-wncmihyaa ACHS Accu-Chek, sliding scale insulin Hypertension Hyperlipidemia Gout Continue home medications when verified COPD As needed nebulizer treatments DVT PPX: Heparin subcu Code status: Full code Discharge Plan: Home Plan to discharge in: Greater than 2 days Time Spent Managing Pts Care (In Minutes): 32
[2025-03-22] MEDS: ACETAMINOPHEN 325 MG TABLET PO PRN (14:56)
[2025-03-22] MEDS: HYDROCODONE/APAP 5/325 MG TAB PO ONE (16:08)
--- NOTE | 2025-03-22 19:41 | P.PN ---
Date of Service: 03/22/25 Vital Signs Temp Pulse Resp BP Pulse Ox 98.1 F 80 14 128/51 L 96 03/22/25 16:00 03/22/25 16:00 03/22/25 16:08 03/22/25 16:00 03/22/25 16:08 Medications Acetaminophen (Acetaminophen 325 Mg Tablet) 650 mg PO Q4HP PRN PRN Reason: Pain scale 2-4 (Mild) Last Admin: 03/22/25 14:56 Dose: 650 mg Albuterol Sulfate (Albuterol 2.5 Mg/3 Ml Neb Elsa) 2.5 mg NEB [id number] PRN PRN Reason: SHORTNESS OF BREATH Albuterol Sulfate (Albuterol Inhaler 200 Puff/6.7 Gm) 2.8 puff IH BID [facility] Last Admin: 03/22/25 08:02 Dose: 2.8 puff Albuterol Sulfate (Albuterol 2.5 Mg/3 Ml Neb Elsa) 2.5 mg IH BIDRESP [facility] Last Admin: 03/22/25 07:31 Dose: 2.5 mg Amlodipine Besylate (Amlodipine 10 Mg Tab) 10 mg PO BEDTIME [facility] Last Admin: 03/21/25 20:59 Dose: 10 mg Ascorbic Acid (Ascorbic Acid 500 Mg Tablet) 500 mg PO NOON [facility] Last Admin: 03/22/25 11:11 Dose: 500 mg Aspirin (Aspirin Ec 325 Mg Tablet) 325 mg PO DAILY [facility] Last Admin: 03/22/25 08:00 Dose: 325 mg Atorvastatin Calcium (Atorvastatin 20 Mg Tab) 20 mg PO BEDTIME [facility] Last Admin: 03/21/25 20:59 Dose: 20 mg Cholecalciferol (Vitamin D 1000 Unit Tab) 2,000 unit PO NOON [facility] Last Admin: 03/22/25 11:11 Dose: 2,000 unit Coenzyme Q10 (Coenzyme Q10- 200 Mg Cap) 200 mg PO BEDTIME [facility] Last Admin: 03/21/25 20:59 Dose: 200 mg Epoetin Kris (Epoetin Kris 10,000 Unit/Ml Vial) 10,000 unit IV EVERY HD [facility] Famotidine (Famotidine 20 Mg Tab) 20 mg PO DAILY PRN; Protocol PRN Reason: INDIGESTION Fish Oil (Docosahexanoic Ac/Epa 1000 Mg) 1,000 mg PO DAILY [facility] Last Admin: 03/22/25 08:00 Dose: 1,000 mg Furosemide (Furosemide 40 Mg/4 Ml Vial) 40 mg IV BIDL [facility] Last Admin: 03/22/25 15:54 Dose: 40 mg Gabapentin (Gabapentin 300 Mg Cap) 300 mg PO BEDTIME [facility] Last Admin: 03/21/25 20:59 Dose: 300 mg Guaifenesin (Guaifenesin 600 Mg Sa Tab) 600 mg PO DAILYPRN PRN PRN Reason: COUGH Heparin Sodium (Porcine) (Heparin 5000 Unit/Ml 1 Ml Vial) 5,000 unit SQ Q12HR [facility] Last Admin: 03/22/25 08:00 Dose: 5,000 unit Home Med (D-Mannose [Azo D-Mannose]) 500 mg PO NOON [facility] Last Admin: 03/22/25 11:11 Dose: Not Given Home Med (Fluticasone/Salmeterol [Advair Hfa 45-21 Mcg Inhaler]) 2 puff IH BID [facility] Last Admin: 03/22/25 08:00 Dose: Not Given Albumin Human (Albumin 25%) 50 mls @ 100 mls/hr IV EVERY HD [facility] Insulin Human Regular (Insulin Regular (Human) 100 Unit/Ml) 0 unit SQ ACHS [facility]; Protocol Last Admin: 03/22/25 15:50 Dose: Not Given Ipratropium [place] (Ipratropium Brom 0.5mg/2.5ml) 0.5 mg IH BIDRESP [facility] Last Admin: 03/22/25 07:31 Dose: 0.5 mg Isosorbide Mononitrate (Isosorbide Taliaferro Sr 30 Mg Tab) 30 mg PO BEDTIME [facility] Last Admin: 03/21/25 20:59 Dose: 30 mg Mannitol (Mannitol 25% 12.5 Gm/50 Ml Vial) 12.5 gm IV EVERY HD PRN PRN Reason: Titrate to SBP (MUST DEFINE) Ondansetron HCl (Ondansetron 4 Mg/2 Ml Vial) 4 mg IV Q6HP PRN PRN Reason: NAUSEA / VOMITING Last Admin: 03/21/25 08:10 Dose: 4 mg Vitamin E (Vitamin E 400 Iu Cap) 400 iu PO DAILY [facility] Last Admin: 03/22/25 08:00 Dose: 400 iu Microbiology Results 03/19/25 12:30 Blood - Blood Aerobic Blood Culture - Preliminary No growth in 24 hours. 03/19/25 12:30 Blood - Blood Anaerobic Blood Culture - Preliminary No growth in 24 hours. 03/19/25 12:08 Blood - Blood Aerobic Blood Culture - Preliminary No growth in 24 hours. 03/19/25 12:08 Blood - Blood Anaerobic Blood Culture - Preliminary No growth in 24 hours. Assessment/ Plan: Nephrology Improving dyspnea No chest pain No acute events overnight Vitals, medications, blood work and imaging reviewed in the chart General: In no apparent distress, Oriented x3, Cooperative HEENT: Atraumatic Neck: Supple Respiratory: Normal air movement Cardiovascular: No edema, Regular rate/rhythm Gastrointestinal: Soft and benign, Non-distended Musculoskeletal: No clubbing, No contractures Integumentary: No rashes, No cyanosis Neurological: Normal speech LUE AVF with thrill Blood work reviewed in the chart. Imagings Data: EXAMINATION: Abdomen Pelvis Wo Contrast CLINICAL INDICATION: Female, 79 years old.ABD PAIN TECHNIQUE: CT abdomen and pelvis was performed, without IV contrast, as per department protocol. Axial, sagittal and coronal reconstructions were obtained. One or more of the following dose reduction techniques were used: Automated exposure control, adjustment of the mA and/or kV according to the patient size, and/or iterative reconstruction. Unless otherwise specified, incidental findings do not require dedicated imaging follow-up. [id number]. IV CONTRAST: Not administered. COMPARISON: 12/23/2024 FINDINGS: The lack of intravenous contrast limits the sensitivity of this exam for eval uation of solid visceral organs, vascular structures, and retroperitoneum. LOWER CHEST: Bilateral pleural effusions and likely underlying atelectasis. Moderate cardiomegaly. Moderate coronary artery calcifications.Mild circumferential thickening of the distal esophagus which could reflect esophagitis. Aortic valve and mitral annular calcifications. UPPER GI: No significant abnormality. LIVER: No significant focal abnormality. GALLBLADDER/BILE DUCTS: Cholecystectomy.? PANCREAS: No mass, ductal dilation, or song-pancreatic fluid. SPLEEN: Unremarkable. ADRENALS: No adrenal masses. KIDNEYS AND URETERS: No hydronephrosis.Intermediate attenuation lesion in the interpolar aspect of the right kidney previously consistent with a cyst. This likely represents some interval hemorrhage. It measures 13 mm.Atrophic left kidney.Other bilateral renal lesions likely representing cysts. ABDOMINAL AORTA AND OTHER VESSELS: Moderate atherosclerotic changes without aortic aneurysm. PERITONEUM: No abnormal free fluid. No free air. LYMPH NODES: No pathologic lymphadenopathy. ABDOMINAL WALL: Unremarkable SMALL BOWEL/COLON: Small bowel has normal course and caliber. No colonic wall thickening or pericolonic inflammatory changes.Nonvisualized appendix but no secondary signs of acute appendicitis. Moderate formed stool burden. URINARY BLADDER: Underdistended but grossly unremarkable. REPRODUCTIVE ORGANS: Uterus surgically absent. No adnexal abnormality. MUSCULOSKELETAL: Multilevel degenerative changes in the spine. No acute fracture. ADDITIONAL FINDINGS: None. IMPRESSION: No acute findings within the abdomen or pelvis. Bilateral pleural effusions and likely underlying atelectasis. Source of the effusions could be from fluid overload/congestive heart failure. EXAM: Chest Single View HISTORY: 79 years Female Cough;Fever COMPARISON: Same day CT a/p, chest radiograph 12/01/24 FINDINGS: LUNGS/PLEURA: Vascular congestion. Bilateral pleural effusions and associated atelectasis, better seen on the subsequent CT. CARDIAC/MEDIASTINUM: Mild cardiomegaly UPPER ABDOMEN: No significant abnormality. BONES: No acute abnormality. LINES/TUBES/OTHER: N/A IMPRESSION: Findings most likely representing mild congestive heart failure. Conclusions/Impression: Stage I HARISH CKD IV -No NSAIDs -Dialysis initiated 03-21-25 through LUE AVF -Hepatitis panel negative -[facility] placement pending LUE AVF with difficult cannulation -AVF US ordered Hyponatremia -Continue Lasix Hypokalemia -Replete as ordered HTN with CKD/ CHF -Continue Amlodipine Diastolic CHF, A/C Moderate Pulmonary HTN -Continue Lasix DM II with CKD -RISS Anemia in chronic illness/ CKD -Retacrit prn CKD MBD Secondary HyperParathyroidism -Continue Cholecalciferol Recurrent UTI -Continue D-Mannose Hospitalist note reviewed
[2025-03-22] MEDS: POTASSIUM CL SA 10 MEQ TAB PO ONE (20:57)
--- NOTE | 2025-03-22 21:14 | RAD REPORT ---
EXAMINATION: ONE VIEW CHEST XR CLINICAL INDICATION: Female, 79 years old.,TB rule out TECHNIQUE: Frontal chest projection is submitted. Examination is limited by patient positioning and t echnique. COMPARISON: 03/19/2025. FINDINGS: The lungs are well inflated. Central interstitial prominence and mild cardiomegaly, stable. Partial i mprovement of left basilar pleural-parenchymal opacity. No pneumothorax or sizable right effusion. Mediastinal contours are unremarkable. IMPRESSION: Partial improvement of left basilar pleural-parenchymal opacity, with stable background mild congesti ve changes
--- NOTE | 2025-03-22 21:49 | RAD REPORT ---
EXAMINATION: US Hemodialysis Graft CLINICAL INDICATION: Female, 79 years old. [facility] MA[facility] Difficult Cannulation. Please andre the location of the AVF TECHNIQUE: Arterial duplex ultrasound was performed of the left upper extremity with real-time, color -flow, and spectral wave Doppler evaluation. COMPARISON: No prior exam. FINDINGS: Left forearm hemodialysis arteriovenous fistula was interrogated, with the following peak systolic fl ow velocities: Feeding artery: 823 cm/second, biphasic flow. Arterial anastomosis: 527 cm/second, biphasic flow. Venous anastomosis: 352 cm/second, biphasic flow. Adjacent vein: 154 cm/second. Nonspecific mildly hypoechoic soft tissue adjacent to the wall along the mid to distal graft. No evid ence of thrombosis. IMPRESSION: Elevated arterial anastomotic velocity, although not exceeding that of the feeding artery, still sugg estive of a degree of arterial anastomotic stenosis.
[2025-03-23 07:14] LABS: Absolute Lymphocytes (CBC) 1.5 K/uL (0.7-4.9); Hematocrit 28.7 % (36.0-45.0); Hemoglobin 9.5 g/dL (12.0-15.0); MCH 28.6 pg (27.0-35.0); MCHC 33.2 g/dL (32.0-36.0); MCV 86.0 fL (80-100); MPV 6.9 fL (7.6-11.3); Nucleated RBC Absolute Count 0.0 (0-0); Nucleated Red Blood Cells % 0.0 % (0-0); RBC Red Blood Cell Count 3.33 M/uL (3.86-4.86); White Blood Count 6.00 thou/uL (4.3-10.9)
[2025-03-23 07:27] LABS: Anion Gap 10.7 mEq/L (5.0-15.0); BUN Blood Urea Nitrogen 64.0 mg/dL (7-18); Glucose Level 92.0 mg/dL (74-106); Magnesium 2.4 mg/dL (1.6-2.4); Potassium 3.7 mEq/L (3.5-5.1)
[2025-03-23 12:30] VITALS: BP 143/63; TEMP 97.6
--- NOTE | 2025-03-23 14:25 | P.DS ---
Admission Date: 03/19/25 Discharge Date: 03/23/25 Disposition: ROUTINE DISCHARGE Discharge Condition: GOOD Reason for Admission: CHF exacerbation Vital Signs/Physical Exam: Temp Pulse Resp BP Pulse Ox 97.6 F 81 16 143/63 H 93 03/23/25 12:00 03/23/25 12:00 03/23/25 12:00 03/23/25 12:00 03/23/25 12:00 Laboratory Data at Discharge: WBC 6.00 thou/uL (4.3-10.9) 03/23/25 06:42 Hgb 9.5 g/dL (12.0-15.0) L 03/23/25 06:42 Hct 28.7 % (36.0-45.0) L 03/23/25 06:42 Plt Count 291 thou/uL (152-406) 03/23/25 06:42 PT 13.7 SECONDS (10-13.0) H 03/19/25 12:30 INR 1.22 03/19/25 12:30 APTT 36.4 SECONDS (27.2-37.4) 03/19/25 12:30 Sodium 138 mEq/L (136-145) 03/23/25 06:42 Potassium 3.7 mEq/L (3.5-5.1) 03/23/25 06:42 BUN 64 mg/dL (7-18) H 03/23/25 06:42 Creatinine 3.09 mg/dL (0.55-1.02) H 03/23/25 06:42 Glucose 92 mg/dL (74-106) 03/23/25 06:42 Uric Acid 14.5 mg/dL (2.6-6.0) H 03/21/25 04:14 Phosphorus 4.1 mg/dL (2.5-4.9) 03/23/25 06:42 Magnesium 2.4 mg/dL (1.6-2.4) 03/23/25 06:42 Total Bilirubin 0.7 mg/dL (0.2-1.0) 03/19/25 12:30 AST 14 U/L (15-37) L 03/19/25 12:30 ALT < 14 U/L (13-56) 03/19/25 12:30 Alkaline Phosphatase 89 U/L (45-117) 03/19/25 12:30 Home Medications: Amlodipine Besylate 10 mg PO BEDTIME 05/12/22 Atorvastatin Calcium [Lipitor*] 20 mg PO BEDTIME 05/12/22 Famotidine [Pepcid*] 20 mg PO DAILY PRN 05/12/22 Gabapentin [Neurontin*] 300 mg PO BEDTIME 05/12/22 Rosenberg-3 Fatty Acids [Rosenberg-3] 1 cap PO DAILY 05/12/22 Vitamin E (Dl,Tocopheryl Acet) [Vitamin E] 180 mg PO DAILY 05/12/22 Fluticasone/Salmeterol [Advair Hfa 45-21 Mcg Inhaler] 2 puff IH BID 11/27/24 Furosemide 20 mg PO BID 11/27/24 Guaifenesin [Mucinex] 600 mg PO DAILYPRN PRN 11/27/24 Ipratropium/Albuterol Sulfate [Iprat-Albut 0.5-3(2.5) mg/3 ml] 3 ml IH BID 11/27/24 Isosorbide Mononitrate [Isosorbide Mononitrate ER] 30 mg PO BEDTIME 11/27/24 Potassium Chloride 10 meq PO DAILY 11/27/24 Hydralazine HCl 75 mg PO DAILY [facility] 12/23/24 Albuterol Sulfate [Albuterol Sulfate Hfa] 100 mg BID 03/19/25 Ascorbic Acid [Vitamin C] 500 mg PO NOON 03/19/25 Aspirin 325 mg PO BEDTIME 03/19/25 Cholecalciferol (Vitamin D3) [Vitamin D3] 2,000 mg PO NOON 03/19/25 D-Mannose [Azo D-Mannose] 500 mg PO NOON 03/19/25 Ferrous Gluconate [Iron] 65 mg PO BEDTIME 03/19/25 Magnesium [Magnesium Gluconate] 400 mg PO BEDTIME 03/19/25 Semaglutide [Ozempic] 0.25 mg SQ [facility] 03/19/25 Ubidecarenone [Co Q-10] 200 mg PO BEDTIME 03/19/25 Physician Discharge Instructions: 1. Please call and schedule a follow-up appointment with your PCP in 3-5 days - Please follow-up with your PCP for medication refills/adjustments 2. Please call and schedule a follow-up appointment with Dr. Bell in 3-5 days,you will need close follow up 3. Continue renal diet 4. activity restrictions fall precautions 5. Return to the ED if symptoms worsen New medications Diet: Renal Activity: Fall precautions Followup: Too Bell [ACTIVE - CAN ADMIT] - Cy Sanchez MD [Primary Care Provider] -
--- NOTE | 2025-03-23 20:50 | P.PN ---
Date of Service: 03/23/25 Vital Signs Temp Pulse Resp BP Pulse Ox 97.6 F 81 16 143/63 H 93 03/23/25 12:00 03/23/25 12:00 03/23/25 12:00 03/23/25 12:00 03/23/25 12:00 Medications Acetaminophen (Acetaminophen 325 Mg Tablet) 650 mg PO Q4HP PRN PRN Reason: Pain scale 2-4 (Mild) Last Admin: 03/23/25 11:26 Dose: 650 mg Albuterol Sulfate (Albuterol 2.5 Mg/3 Ml Neb Elsa) 2.5 mg NEB [id number] PRN PRN Reason: SHORTNESS OF BREATH Albuterol Sulfate (Albuterol Inhaler 200 Puff/6.7 Gm) 2.8 puff IH BID [facility] Last Admin: 03/23/25 09:00 Dose: 2.8 puff Albuterol Sulfate (Albuterol 2.5 Mg/3 Ml Neb Elsa) 2.5 mg IH BIDRESP [facility] Last Admin: 03/23/25 07:47 Dose: 2.5 mg Amlodipine Besylate (Amlodipine 10 Mg Tab) 10 mg PO BEDTIME [facility] Last Admin: 03/22/25 20:57 Dose: 10 mg Ascorbic Acid (Ascorbic Acid 500 Mg Tablet) 500 mg PO NOON [facility] Last Admin: 03/23/25 12:00 Dose: 500 mg Aspirin (Aspirin Ec 325 Mg Tablet) 325 mg PO DAILY [facility] Last Admin: 03/23/25 10:19 Dose: 325 mg Atorvastatin Calcium (Atorvastatin 20 Mg Tab) 20 mg PO BEDTIME [facility] Last Admin: 03/22/25 20:57 Dose: 20 mg Cholecalciferol (Vitamin D 1000 Unit Tab) 2,000 unit PO NOON [facility] Last Admin: 03/23/25 11:27 Dose: 2,000 unit Coenzyme Q10 (Coenzyme Q10- 200 Mg Cap) 200 mg PO BEDTIME [facility] Last Admin: 03/22/25 20:57 Dose: 200 mg Epoetin Kris (Epoetin Kris 10,000 Unit/Ml Vial) 10,000 unit IV EVERY HD [facility] Famotidine (Famotidine 20 Mg Tab) 20 mg PO DAILY PRN; Protocol PRN Reason: INDIGESTION Fish Oil (Docosahexanoic Ac/Epa 1000 Mg) 1,000 mg PO DAILY [facility] Last Admin: 03/23/25 10:19 Dose: 1,000 mg Furosemide (Furosemide 40 Mg/4 Ml Vial) 40 mg IV BIDL [facility] Last Admin: 03/23/25 10:20 Dose: 40 mg Gabapentin (Gabapentin 300 Mg Cap) 300 mg PO BEDTIME [facility] Last Admin: 03/22/25 20:57 Dose: 300 mg Guaifenesin (Guaifenesin 600 Mg Sa Tab) 600 mg PO DAILYPRN PRN PRN Reason: COUGH Heparin Sodium (Porcine) (Heparin 5000 Unit/Ml 1 Ml Vial) 5,000 unit SQ Q12HR [facility] Last Admin: 03/23/25 10:20 Dose: 5,000 unit Home Med (D-Mannose [Azo D-Mannose]) 500 mg PO NOON [facility] Last Admin: 03/23/25 11:28 Dose: Not Given Home Med (Fluticasone/Salmeterol [Advair Hfa 45-21 Mcg Inhaler]) 2 puff IH BID [facility] Last Admin: 03/23/25 09:00 Dose: Not Given Albumin Human (Albumin 25%) 50 mls @ 100 mls/hr IV EVERY HD [facility] Insulin Human Regular (Insulin Regular (Human) 100 Unit/Ml) 0 unit SQ ACHS [facility]; Protocol Last Admin: 03/23/25 11:30 Dose: Not Given Ipratropium [place] (Ipratropium Brom 0.5mg/2.5ml) 0.5 mg IH BIDRESP [facility] Last Admin: 03/23/25 07:47 Dose: 0.5 mg Isosorbide Mononitrate (Isosorbide [place] Sr 30 Mg Tab) 30 mg PO BEDTIME [facility] Last Admin: 03/22/25 20:57 Dose: 30 mg Mannitol (Mannitol 25% 12.5 Gm/50 Ml Vial) 12.5 gm IV EVERY HD PRN PRN Reason: Titrate to SBP (MUST DEFINE) Ondansetron HCl (Ondansetron 4 Mg/2 Ml Vial) 4 mg IV Q6HP PRN PRN Reason: NAUSEA / VOMITING Last Admin: 03/21/25 08:10 Dose: 4 mg Vitamin E (Vitamin E 400 Iu Cap) 400 iu PO DAILY [facility] Last Admin: 03/23/25 10:19 Dose: 400 iu Microbiology Results 03/19/25 12:30 Blood - Blood Aerobic Blood Culture - Preliminary No growth in 24 hours. 03/19/25 12:30 Blood - Blood Anaerobic Blood Culture - Preliminary No growth in 24 hours. 03/19/25 12:08 Blood - Blood Aerobic Blood Culture - Preliminary No growth in 24 hours. 03/19/25 12:08 Blood - Blood Anaerobic Blood Culture - Preliminary No growth in 24 hours. Assessment/ Plan: Nephrology Improving dyspnea No chest pain No acute events overnight Vitals, medications, blood work and imaging reviewed in the chart General: In no apparent distress, Oriented x3, Cooperative HEENT: Atraumatic Neck: Supple Respiratory: Normal air movement Cardiovascular: No edema, Regular rate/rhythm Gastrointestinal: Soft and benign, Non-distended Musculoskeletal: No clubbing, No contractures Integumentary: No rashes, No cyanosis Neurological: Normal speech LUE AVF with thrill Blood work reviewed in the chart. Imagings Data: EXAMINATION: Abdomen Pelvis Wo Contrast CLINICAL INDICATION: Female, 79 years old.ABD PAIN TECHNIQUE: CT abdomen and pelvis was performed, without IV contrast, as per department protocol. Axial, sagittal and coronal reconstructions were obtained. One or more of the following dose reduction techniques were used: Automated exposure control, adjustment of the mA and/or kV according to the patient size, and/or iterative reconstruction. Unless otherwise specified, incidental findings do not require dedicated imaging follow-up. [id number]. IV CONTRAST: Not administered. COMPARISON: 12/23/2024 FINDINGS: The lack of intravenous contrast limits the sensitivity of this exam for eval uation of solid visceral organs, vascular structures, and retroperitoneum. LOWER CHEST: Bilateral pleural effusions and likely underlying atelectasis. Moderate cardiomegaly. Moderate coronary artery calcifications.Mild circumferential thickening of the distal esophagus which could reflect esophagitis. Aortic valve and mitral annular calcifications. UPPER GI: No significant abnormality. LIVER: No significant focal abnormality. GALLBLADDER/BILE DUCTS: Cholecystectomy.? PANCREAS: No mass, ductal dilation, or song-pancreatic fluid. SPLEEN: Unremarkable. ADRENALS: No adrenal masses. KIDNEYS AND URETERS: No hydronephrosis.Intermediate attenuation lesion in the interpolar aspect of the right kidney previously consistent with a cyst. This likely represents some interval hemorrhage. It measures 13 mm.Atrophic left kidney.Other bilateral renal lesions likely representing cysts. ABDOMINAL AORTA AND OTHER VESSELS: Moderate atherosclerotic changes without aortic aneurysm. PERITONEUM: No abnormal free fluid. No free air. LYMPH NODES: No pathologic lymphadenopathy. ABDOMINAL WALL: Unremarkable SMALL BOWEL/COLON: Small bowel has normal course and caliber. No colonic wall thickening or pericolonic inflammatory changes.Nonvisualized appendix but no secondary signs of acute appendicitis. Moderate formed stool burden. URINARY BLADDER: Underdistended but grossly unremarkable. REPRODUCTIVE ORGANS: Uterus surgically absent. No adnexal abnormality. MUSCULOSKELETAL: Multilevel degenerative changes in the spine. No acute fracture. ADDITIONAL FINDINGS: None. IMPRESSION: No acute findings within the abdomen or pelvis. Bilateral pleural effusions and likely underlying atelectasis. Source of the effusions could be from fluid overload/congestive heart failure. EXAM: Chest Single View HISTORY: 79 years Female Cough;Fever COMPARISON: Same day CT a/p, chest radiograph 12/01/24 FINDINGS: LUNGS/PLEURA: Vascular congestion. Bilateral pleural effusions and associated atelectasis, better seen on the subsequent CT. CARDIAC/MEDIASTINUM: Mild cardiomegaly UPPER ABDOMEN: No significant abnormality. BONES: No acute abnormality. LINES/TUBES/OTHER: N/A IMPRESSION: Findings most likely representing mild congestive heart failure. Conclusions/Impression: Stage I HARISH CKD IV -No NSAIDs -Dialysis initiated 03-21-25 through LUE AVF -Hepatitis panel negative -[place] [facility] placement pending LUE AVF with difficult cannulation -AVF US demonstrated stenosis -Will need outpt vascular evaluation and tx Hyponatremia -Continue Lasix Hypokalemia -Replete as ordered HTN with CKD/ CHF -Continue Amlodipine Diastolic CHF, A/C Moderate Pulmonary HTN -Continue Lasix DM II with CKD -RISS Anemia in chronic illness/ CKD -Retacrit prn CKD MBD Secondary HyperParathyroidism -Continue Cholecalciferol Recurrent UTI -Continue D-Mannose Case reviewed with hospitalist team
== END 2025-03-23 20:54 | disposition home or self-care (01) | DRG 291 ==
LOC: ER 11:45 → ERHOLD 14:27 → 2ND 15:00
PROVIDERS: ADMIT Hospitalist; ATTEND Internal Medicine
PROC: 5A1D70Z Performance of Urinary Filtration, Intermittent, Less than 6 Hours Per Day (ICD-10-PCS; principal; 2025-03-21)
DX: I13.0 Hypertensive heart and chronic kidney disease with heart failure and stage 1 through stage 4 chronic kidney disease, or unspecified chronic kidney disease (principal); I50.33 Acute on chronic diastolic (congestive) heart failure; E87.1 Hypo-osmolality and hyponatremia; N17.9 Acute kidney failure, unspecified; N18.4 Chronic kidney disease, stage 4 (severe); N25.81 Secondary hyperparathyroidism of renal origin; N39.0 Urinary tract infection, site not specified; E11.22 Type 2 diabetes mellitus with diabetic chronic kidney disease; D63.1 Anemia in chronic kidney disease; M10.9 Gout, unspecified; E87.6 Hypokalemia; E78.5 Hyperlipidemia, unspecified; I27.20 Pulmonary hypertension, unspecified; J44.9 Chronic obstructive pulmonary disease, unspecified; Z88.0 Allergy status to penicillin; Z88.1 Allergy status to other antibiotic agents; Z90.49 Acquired absence of other specified parts of digestive tract; Z90.710 Acquired absence of both cervix and uterus; Z79.02 Long term (current) use of antithrombotics/antiplatelets; Z79.899 Other long term (current) drug therapy; Z11.52 Encounter for screening for COVID-19
CPT/HCPCS: 36415; 71045; 74176; 80048; 80053; 81001; 82550; 82947; 83605; 83735; 83880; 84100; 84439; 84443; 84484; 84550; 85025; 85610; 85730; 86704; 86705; 86706; 87040; 87340; 87428; 90935; 93005; 93306; 93990; 94640; 96361; 96374; 99285; J0885; J1644; J1938; J2405; J3535; J7050; J7613; J7644